=== PATIENT | female | born 1970 | race Caucasian/White ===

== ENCOUNTER 2017-05-23 14:33 | Observation (INO) | payer OTHER ==
[~2017-05-23 14:33] MED LIST: CIMZ200K SC; FOLI1 PO; METH2.5 PO; MORP60TA20 PO; PRED1TAB PO; SYNT125T PO
[2017-05-23] MEDS ORDERED: PRED20 PO (15:25)
[2017-05-23] MEDS ORDERED: METH2.5T PO (15:25)
[2017-05-23] MEDS ORDERED: MORP60TA24 PO (15:25)
[2017-05-23] MEDS ORDERED: FOLI1TAB6 PO (15:25)
[2017-05-23] MEDS ORDERED: LEVO.125 PO (15:25)
[2017-05-23] MEDS ORDERED: DILA8TAB4 PO (15:37)
[2017-05-23] MEDS ORDERED: SODIUM CHLOR 0.9% 1000 ML INJ 1,000 ML IV ONE (15:45)
[2017-05-23] MEDS ORDERED: KETOROLAC TROMETHAMINE 30 MG/ML (IVP) VIAL IV PUSH ONE (15:45)
[2017-05-23] MEDS ORDERED: HYDROmorphone HCL PF 1 MG/ML VIAL IV PUSH ONE (15:45)
--- NOTE | 2017-05-23 15:52 | PD ---
HPI Chief Complaint: Pain: Acute or Chronic Time Seen by Provider: 15:25 Travel History International Travel<30 days: No Contact w/Intl Traveler<30days: No Traveled to known affect area: No History of Present Illness HPI The patient is a 46-year-old female who presents emergency department for back pain. The patient has a long-standing history of back pain and is followed by pain interventionalist, Dr. Macdonald. The patient states that she has chronic pain, however, her pain change character last Thursday. The patient states she was seen at [facility] for her pain and was given oral steroids including prednisone. The patient then saw her pain interventional's, Dr. Macdonald, who performs steroid injections. However, the patient states the pain has been progressing and is not improved with the morphine and Dilaudid she takes at home that is prescribed by her pain interventional list. The patient denies any history of IV drug abuse, does have a history of rheumatoid arthritis and states that her right wrist is swollen secondary to her rheumatoid arthritis. The patient states the back pain is located lower back, radiates down the right leg over the anterior aspect the right knee and into the right groin. She denies any dysuria, frequency, urgency, or incontinence. She denies any fever, chills, or sweats. She denies any history of epidural abscess or psoas abscess. PFSH Past Medical History Autoimmune Disease: No Blood Disorders: No Cancer: No Cardiovascular Problems: No Diabetes: No Diminished Hearing: No Endocrine: Yes (thyroid) Genitourinary: No Hepatitis: No Hiatal Hernia: No Immune Disorder: Yes (rheumatoid) Musculoskeletal: Yes (rheumtoid arthritis, cervical lower spine pain, scoliosis ) Neurologic: Yes (hx of head injury, occ headaches) Psychiatric: No Reproductive: No Respiratory: No Thyroid Disease: Yes Tetanus Vaccination: < 5 Years Influenza Vaccination: No ?: Not LMP: April 2017 Menopausal: Yes Past Surgical History Abdominal Surgery: Yes (right inguinal hernia repair) AICD: No Joint Replacement: No Pacemaker: No Social History Alcohol Use: Yes (OCCASIONAL ) Tobacco Use: No Substance Use: No Allergies-Medications (Allergen,Severity, Reaction): Coded Allergies: penicillin G (Unverified Allergy, Severe, 05/23/17) unknown reaction Reported Meds & Prescriptions Reported Meds & Active Scripts Active Reported Dilaudid (Hydromorphone HCl) 8 Mg Tab 8 Mg PO Q12HR PRN Synthroid (Levothyroxine Sodium) 125 Mcg Tab 125 Mcg PO DAILY Prednisone 20 Mg Tab 40 Mg PO DAILY Take 40 mg (2 tablets) daily for 5 days Morphine Sulfate CR (Morphine Sulfate) 60 Mg Tab 60 Mg PO Q8HR Methotrexate 2.5 Mg Tab 2.5 Mg PO Q7D Folic Acid 1 Mg Tablet 1 Mg PO DAILY Review of Systems General / Constitutional: No: Fever Cardiovascular: No: Chest Pain or Discomfort Respiratory: No: Shortness of Breath Gastrointestinal: No: Nausea, Vomiting, Abdominal Pain Genitourinary: No: Dysuria, Incontinence Musculoskeletal: Positive: Edema (edema of the right wrist which she attributes to rheumatoid arthritis), Pain, No: Weakness Skin: No Rash Neurologic: No: Weakness, Paresthesia, Sensory Disturbance Physical Exam Narrative GENERAL: Awake, alert, tearful 46-year-old female appears her stated age and appears to be in moderate discomfort. SKIN: Focused skin assessment warm/dry. HEAD: Atraumatic. Normocephalic. EYES: No injection or drainage. ENT: No nasal bleeding or discharge. Mucous membranes pink and moist. NECK: Trachea midline. No JVD. CARDIOVASCULAR: Regular rate and rhythm. No murmur appreciated. RESPIRATORY: No accessory muscle use. Clear to auscultation. Breath sounds equal bilaterally. GASTROINTESTINAL: Abdomen soft, non-tender, nondistended. Back: No tenderness over the thoracic vertebra. Billable tenderness over the mid lumbar vertebrae in the sacroiliac bilateral. No erythema noted. Over-the- counter pain patch noted on the back. MUSCULOSKELETAL: Right wrist is slightly edematous compared to the left with mild erythema. Prior IV forrest noted over the left anterior cubital fossa and over the radial aspect of the right wrist. NEUROLOGICAL: Awake and alert. No obvious cranial nerve deficits. Motor grossly within normal limits. Normal speech. PSYCHIATRIC: Appropriate mood and affect; insight and judgment normal. Data Data Last Documented VS Vital Signs Date Time Temp Pulse Resp B/P (MAP) Pulse Ox O2 Delivery O2 Flow Rate FiO2 05/23/17 16:24 82 20 142/77 (98) 97 Room Air Orders Orders Complete Blood Count With Diff (05/23/17 15:39) Comprehensive Metabolic Panel (05/23/17 15:39) Urinalysis - C+S If Indicated (05/23/17 15:39) Ct Lumb Spine W/O Contrast (05/23/17 ) Hydromorphone Pf Inj (Dilaudid Pf Inj) (05/23/17 15:45) Ketorolac Inj (Toradol Inj) (05/23/17 15:45) Sodium Chlor 0.9% 1000 Ml Inj (Ns 1000 M (05/23/17 15:45) Lactic Acid (05/23/17 15:39) Blood Culture (05/23/17 15:39) Methylprednisolone So Succ Inj (Solumedr (05/23/17 17:30) Admit Order (Ed Use Only) (05/23/17 17:17) C-Reactive Protein (Crp) (05/23/17 17:17) Westergren Sedimentation Rate (05/23/17 17:17) Labs Laboratory Tests Test 05/23/17 15:50 White Blood Count 14.6 TH/MM3 Red Blood Count 4.71 MIL/MM3 Hemoglobin 12.8 GM/DL Hematocrit 39.4 % Mean Corpuscular Volume 83.6 FL Mean Corpuscular Hemoglobin 27.2 PG Mean Corpuscular Hemoglobin Concent 32.6 % Red Cell Distribution Width 12.3 % Platelet Count 339 TH/MM3 Mean Platelet Volume 7.5 FL Neutrophils (%) (Auto) 67.1 % Lymphocytes (%) (Auto) 19.6 % Monocytes (%) (Auto) 10.2 % Eosinophils (%) (Auto) 0.3 % Basophils (%) (Auto) 2.8 % Neutrophils # (Auto) 9.8 TH/MM3 Lymphocytes # (Auto) 2.9 TH/MM3 Monocytes # (Auto) 1.5 TH/MM3 Eosinophils # (Auto) 0.0 TH/MM3 Basophils # (Auto) 0.4 TH/MM3 CBC Comment DIFF FINAL Differential Comment Blood Urea Nitrogen 10 MG/DL Creatinine 0.58 MG/DL Random Glucose 96 MG/DL Total Protein 8.2 GM/DL Albumin 2.8 GM/DL Calcium Level 9.0 MG/DL Alkaline Phosphatase 101 U/L Aspartate Amino Transf (AST/SGOT) 13 U/L Alanine Aminotransferase (ALT/SGPT) 15 U/L Total Bilirubin 0.3 MG/DL Sodium Level 139 MEQ/L Potassium Level 3.3 MEQ/L Chloride Level 100 MEQ/L Carbon Dioxide Level 32.1 MEQ/L Anion Gap 7 MEQ/L Estimat Glomerular Filtration Rate 111 ML/MIN Lactic Acid Level 1.9 mmol/L MDM Medical Decision Making Medical Screen Exam Complete: Yes Emergency Medical Condition: Yes Medical Record Reviewed: Yes Interpretation(s) CT lumbar spine without contrast reveals multilevel lumbar spine degenerative changes as detailed. No high-grade foraminal or spinal stenosis demonstrated at any level. Mild scoliosis. There is no fracture or subluxation. Differential Diagnosis Differential diagnosis includes chronic back pain, fracture, spinal stenosis, epidural abscess, psoas abscess, immunocompromise, UTI, nephrolithiasis. Narrative Course IV was established, labs are drawn and sent, and the patient was placed on cardiac telemetry monitoring and continuous pulse oximetry monitoring. The patient was electric drill operator Decadron, Toradol, and IV fluids. CT lumbar spine was ordered. UA was sent to lab. The patient states she was seen in our Thursday and Thursday, states on Thursday they did an MRI of the back with and without contrast. Therefore, an attempt was made to obtain the MRI results from [facility]. CT reveals no obvious compression fracture. The patient's white count is slightly elevated, however, I doubt epidural abscess or psoas abscess if MRI was performed at [facility] and the patient was discharged home. The patient was reevaluated at 5:10 PM, continues to have excruciating pain with difficulty mobilizing. She does have a red and swollen wrist and back pain, this may be rheumatoid arthritis exacerbation. The patient has been to the ER 3 times in the last week and has seen her pain interventionalist who perform steroid injections without any alleviation of her pain. Therefore, patient will be 23 hour observation for intractable back pain and possible rheumatoid arthritis exacerbation. The patient was administered Solu-Medrol 125 mg intravenously. I discussed the patient the on-call medical service as the patient's physician is Dr. Jeanmarie Pitts, the patient will be 23 hour observation. Physician Communication Physician Communication I discussed the patient with Dr. Hamm who agrees with 23 hour observation. Diagnosis Primary Impression: Intractable low back pain Admitting Information Admitting Physician Requests: Observation Condition: Stable Nader Roth MD May 23, 2017 15:52
[2017-05-23 16:06] LABS: AUTOMATED NEUTROPHIL # 9.8 TH/MM3 (1.8-7.7); BASOPHIL # 0.4 TH/MM3 (0-0.2); BASOPHIL % 2.8 % (0.0-2.0); EOSINOPHIL % 0.3 % (0.0-4.0); HEMATOCRIT 39.4 % (35.0-46.0); LYMPH % 19.6 % (9.0-44.0); LYMPHOCYTE # 2.9 TH/MM3 (1.0-4.8); MEAN CELL VOLUME 83.6 FL (80.0-100.0); MEAN CORPUSCULAR HEMOGLOBIN 27.2 PG (27.0-34.0); MEAN CORPUSCULAR HGB CONC 32.6 % (32.0-36.0); MONO % 10.2 % (0.0-8.0); NEUT % 67.1 % (16.0-70.0); PLATELET COUNT 339 TH/MM3 (150-450); RED BLOOD COUNT 4.71 MIL/MM3 (4.00-5.30); RED CELL DISTRIBUTION WIDTH 12.3 % (11.6-17.2); WHITE BLOOD COUNT 14.6 TH/MM3 (4.0-11.0)
[2017-05-23 16:08] LABS: HEMO FLAGS DIFF FINAL
[2017-05-23 16:15] LABS: CHLORIDE 100 MEQ/L (98-107); POTASSIUM 3.3 MEQ/L (3.5-5.1); SODIUM (NA) 139 MEQ/L (136-145)
[2017-05-23 16:19] LABS: ANION GAP 7 MEQ/L (5-15); BICARBONATE 32.1 MEQ/L (21.0-32.0); BLOOD UREA NITROGEN 10 MG/DL (7-18)
[2017-05-23 16:22] LABS: ALT (GPT) 15 U/L (10-53); AST (GOT) 13 U/L (15-37); GLOMERULAR FILTRATION RATE 111 ML/MIN (>89)
[2017-05-23 16:24] VITALS: BP 142/77; PULSE 82; RESP 20; O2SAT 97
[2017-05-23 16:24] LABS: TOTAL BILIRUBIN ADULT 0.3 MG/DL (0.2-1.0)
[2017-05-23 16:25] LABS: ALKALINE PHOSPHATASE 101 U/L (45-117)
--- NOTE | 2017-05-23 16:40 | RADRPT ---
EXAM DATE/TIME: 05/23/2017 16:13 [place] COMPARISON: No previous studies available for comparison. INDICATIONS : Back pain RADIATION DOSE: 25.33 CTDIvol (mGy) MEDICAL HISTORY : Rheumatoid arthritis. SURGICAL HISTORY : Inguinal hernia repair. ENCOUNTER: Initial ACUITY: 1 day PAIN SCALE: 10/10 LOCATION: low back TECHNIQUE: Volumetric scanning of the lumbar spine was performed. Multiplanar reconstructions in the sagittal, coronal and oblique axial planes were performed. Using automated exposure control and adjustment of the mA and/or kV according to patient size, radiation dose was kept as low as reasonably achievable t o obtain optimal diagnostic quality images. DICOM format image data is available electronically for review and comparison. FINDINGS: Mild levoconvex curvature centered around L4. No fracture or subluxation of the lumbar spine. Vertebr al bodies have normal height. T12-L1: Normal. L1-L2: Normal. L2-L3: The disc has mild loss of height. There is mild, diffuse/circumferential disc osteophyte complex and mild, chronic Schmorl's node changes of the vertebral body endplates. There is mild bilateral facet o steoarthritis. Slight foraminal encroachment on the left. L3-L4: The disc has slight loss of height. There is diffuse bulging of the annulus and mild bilateral facet osteoarthritis. Mild, chronic Schmorl's node changes of the superior endplate of L4. No foraminal or spinal stenosis. L4-L5: The disc has mild loss of height. There is diffuse bulging of the disc annulus and mild bilateral fac et osteoarthritis. No significant foraminal or spinal stenosis. L5-S1: The disc has a moderate loss of height. There is a small, broad/diffuse disc protrusion and mild bila teral facet osteoarthritis. A larger disc protrusion is seen anteriorly. No significant foraminal or spinal stenosis demonstrated. CONCLUSION: Multilevel lumbar spine degenerative changes as detailed above. No high-grade foraminal or spinal rohit nosis demonstrated at any level. Mild scoliosis. There is no fracture or subluxation. Bipin Gallardo MD on May 23, 2017 at 16:33 Board Certified Radiologist. This report was verified electronically.
[2017-05-23 17:24] VITALS: BP 144/65; PULSE 68; RESP 18; TEMP 98.6; O2SAT 97
[2017-05-23] MEDS ORDERED: methylPREDNISolone SOD SUCC 125 MG/2 ML VIAL IV PUSH ONE (17:30)
--- NOTE | 2017-05-23 17:34 | HHI.HP ---
[facility] Jeanmarie Pitts DO Admission Diagnosis intractable back pain rule out rheumatoid arthritis exacerbation Diagnoses: Travel History International Travel<30 Days: No Contact w/Intl Traveler <30 Da: No Traveled to Known Affected Are: No History of Present Illness This is a pleasant 46 year-old female with past medical history of rheumatoid arthritis and chronic low back pain who presents to the ER with severe intractable lumbar back pain which has been ongoing for the past 4 days. She presented twice to the ER at [facility] where she apparently had an MRI of her back done and she was told that showed nothing acute. She was prescribed prednisone and discharged home. She returns today via [facility] with intractable pain. She denies any paresthesias, trouble with her bowels or ladder, or weakness in the lower extremities. Normally when she gets rheumatoid arthritis exacerbations it affects her knees hands and wrists. She has been using the walker over the past week. She does have a motorized scooter as well. She last saw her pain management physician Dr. Macdonald on Thursday. 10 point review systems otherwise negative. Past Family Social History Past Medical History Rheumatoid arthritis Chronic low back pain Anxiety COPD Past Surgical History inguinal hernia repair Allergies: Coded Allergies: penicillin G (Unverified Allergy, Severe, 05/23/17) unknown reaction Family History Reviewed and noncontributory Social History no e/t/d Physical Exam Vital Signs Vital Signs Date Time Temp Pulse Resp B/P (MAP) Pulse Ox O2 Delivery O2 Flow Rate FiO2 05/23/17 17:24 98.6 68 18 144/65 (91) 97 Room Air 05/23/17 16:24 82 20 142/77 (98) 97 Room Air 05/23/17 16:20 68 Physical Exam GENERAL: Well-nourished, well-developed patient. SKIN: Warm and dry. HEAD: Normocephalic. EYES: No scleral icterus. No injection or drainage. NECK: Supple, trachea midline. No JVD or lymphadenopathy. CARDIOVASCULAR: Regular rate and rhythm without murmurs, gallops, or rubs. RESPIRATORY: Breath sounds equal bilaterally. No accessory muscle use. GASTROINTESTINAL: Abdomen soft, non-tender, nondistended. EXTREMITIES: No cyanosis, or edema. Deformities of fingers bilaterally. Right wrist laterally is swollen with some erythema. NEUROLOGICAL: Awake, alert, and oriented x 3. Non-focal. Laboratory Laboratory Tests Test 05/23/17 15:50 White Blood Count 14.6 Red Blood Count 4.71 Hemoglobin 12.8 Hematocrit 39.4 Mean Corpuscular Volume 83.6 Mean Corpuscular Hemoglobin 27.2 Mean Corpuscular Hemoglobin Concent 32.6 Red Cell Distribution Width 12.3 Platelet Count 339 Mean Platelet Volume 7.5 Neutrophils (%) (Auto) 67.1 Lymphocytes (%) (Auto) 19.6 Monocytes (%) (Auto) 10.2 Eosinophils (%) (Auto) 0.3 Basophils (%) (Auto) 2.8 Neutrophils # (Auto) 9.8 Lymphocytes # (Auto) 2.9 Monocytes # (Auto) 1.5 Eosinophils # (Auto) 0.0 Basophils # (Auto) 0.4 CBC Comment DIFF FINAL Differential Comment Blood Urea Nitrogen 10 Creatinine 0.58 Random Glucose 96 Total Protein 8.2 Albumin 2.8 Calcium Level 9.0 Alkaline Phosphatase 101 Aspartate Amino Transf (AST/SGOT) 13 Alanine Aminotransferase (ALT/SGPT) 15 Total Bilirubin 0.3 Sodium Level 139 Potassium Level 3.3 Chloride Level 100 Carbon Dioxide Level 32.1 Anion Gap 7 Estimat Glomerular Filtration Rate 111 Lactic Acid Level 1.9 Date/Time Source Procedure Growth Status 05/23/17 15:55 Blood Peripheral Aerobic Blood Culture Pending Received 05/23/17 15:55 Blood Peripheral Anaerobic Blood Culture Pending Received Result Diagram: 05/23/17 1550 05/23/17 1550 Imaging Last Impressions Lumbar Spine CT 05/23/17 0000 Signed Impressions: Service Date/Time: Thursday, May 23, 2017 16:13 - CONCLUSION: Multilevel lumbar spine degenerative changes as detailed above. No high-grade foraminal or spinal stenosis demonstrated at any level. Mild scoliosis. There is no fracture or subluxation. MD Kalpana Talamantes VTE Risk Assessment Caprini VTE Risk Assessment: Mod/High Risk (score >= 2) Caprini Risk Assessment Model Point Value = 1 Point Value = 2 Point Value = 3 Point Value = 5 Age 41-60 Minor surgery BMI > 25 kg/m2 Swollen legs Varicose veins or History of unexplained or recurrent spontaneous Oral contraceptives or hormone replacement Sepsis (< 1 month) Serious lung disease, including pneumonia (< 1 month) Abnormal pulmonary function Acute myocardial infarction Congestive heart failure (< 1 month) History of inflammatory bowel disease Medical patient at bed rest Age 61-74 Arthroscopic surgery Major open surgery (> 45 min) Laparoscopic surgery (> 45 min) Malignancy Confined to bed (> 72 hours) Immobilizing plaster cast Central venous access Age >= 75 History of VTE Family history of VTE Factor V Leiden Prothrombin [id number] Lupus anticoagulant Anticardiolipin antibodies Elevated serum homocysteine Heparin-induced thrombocytopenia Other congenital or acquired thrombophilia Stroke (< 1 month) Elective arthroplasty Hip, pelvis, or leg fracture Acute spinal cord injury (< 1 month) Prophylaxis Regimen Total Risk Factor Score Risk Level Prophylaxis Regimen 0-1 Low Early ambulation 2 Moderate Order ONE of the following: *Sequential Compression Device (SCD) *Heparin 5000 units SQ BID 3-4 Higher Order ONE of the following medications: *Heparin 5000 units SQ TID *Enoxaparin/Lovenox 40 mg SQ daily (WT < 150 kg, CrCl > 30 mL/min) *Enoxaparin/Lovenox 30 mg SQ daily (WT < 150 kg, CrCl > 10-29 mL/min) *Enoxaparin/Lovenox 30 mg SQ BID (WT < 150 kg, CrCl > 30 mL/min) AND/OR *Sequential Compression Device (SCD) 5 or more Highest Order ONE of the following medications: *Heparin 5000 units SQ TID (Preferred with Epidurals) *Enoxaparin/Lovenox 40 mg SQ daily (WT < 150 kg, CrCl > 30 mL/min) *Enoxaparin/Lovenox 30 mg SQ daily (WT < 150 kg, CrCl > 10-29 mL/min) *Enoxaparin/Lovenox 30 mg SQ BID (WT < 150 kg, CrCl > 30 mL/min) AND *Sequential Compression Device (SCD) Assessment and Plan Problem List: (1) Intractable low back pain ICD Code: M54.5 - Low back pain Status: Acute Assessment and Plan -Acute lower back pain in a patient with chronic low back pain and rheumatoid arthritis. Lumbar CT showing no acute findings. The patient was in the [facility] ER over the weekend and had an MRI which she was told was negative. Those results are requested and are pending. The patient has no signs or symptoms of nerve impingement. We will place her in observation for pain control, consult physical therapy. The patient has no history of rheumatoid arthritis involving the spine. We'll check a sedimentation rate and CRP. Continue steroids. -Rheumatoid arthritis. Continue prednisone and methotrexate as per home doses. -COPD without acute exacerbation. -Anxiety. Continue Klonopin. -Leukocytosis likely secondary to the steroids. -Hypokalemia. Replete. -DVT prophylaxis with Lovenox. Sarah Hamm MD May 23, 2017 17:34
[2017-05-23] MEDS ORDERED: BISACODYL 10 MG SUPP RECTAL PRN (17:45)
[2017-05-23] MEDS ORDERED: METHOTREXATE 2.5 MG TAB PO SCH (17:45)
[2017-05-23] MEDS ORDERED: TEMAZEPAM 15 MG CAP PO PRN (17:45)
[2017-05-23] MEDS ORDERED: ACETAMINOPHEN 325 MG TAB PO PRN (17:45)
[2017-05-23] MEDS ORDERED: MAGNESIUM HYDROXIDE SUSP 30 ML CUP PO PRN (17:45)
[2017-05-23] MEDS ORDERED: HYDROmorphone HCL 4 MG TAB PO PRN (17:45)
[2017-05-23] MEDS ORDERED: HYDROmorphone HCL PF 1 MG/ML VIAL IV PUSH PRN (17:45)
[2017-05-23] MEDS ORDERED: NALOXONE HCL 0.4 MG/ML AMP IV PUSH PRN (17:45)
[2017-05-23] MEDS ORDERED: SENNOSIDES 8.6 MG TAB PO PRN (17:45)
[2017-05-23] MEDS ORDERED: SODIUM CHLORIDE 0.9% FLUSH 10 ML FLUSH IV FLUSH PRN (17:45)
[2017-05-23] MEDS ORDERED: LACTULOSE SYRUP 20 GM/30 ML CUP PO PRN (17:45)
[2017-05-23 17:59] LABS: BLOOD, URINE NEG (NEG); GLUCOSE,URINE NEG (NEG); KETONE, URINE NEG (NEG); NITRITE,URINE NEG (NEG)
[2017-05-23 18:01] LABS: METHOD OF COLLECTION CLEAN CATCH; URINE COLOR YELLOW (YELLW/STRAW)
[2017-05-23 18:15] LABS: SQUAMOUS EPITHELIAL CELL URINE 0-5 /hpf (0-5); WBC, URINE 0-2 /hpf (0-5)
[2017-05-23 18:16] LABS: COMMENT (UR) CULT NOT INDICATED; CULTURE IF INDICATED CULT NOT INDICATED
[2017-05-23 18:39] VITALS: BP 146/80; PULSE 60; RESP 17; O2SAT 98
[2017-05-23 19:50] VITALS: BP 167/87; PULSE 55; RESP 14; O2SAT 96
[2017-05-23] MEDS ORDERED: ENOXAPARIN SODIUM 40 MG/0.4 ML SYRINGE SQ SCH (20:00)
[2017-05-23] MEDS: MORPHINE SULFATE 30 MG CONTROLLED RELEASE TAB PO SCH (20:47)
[2017-05-23] MEDS: SODIUM CHLORIDE 0.9% FLUSH 10 ML FLUSH IV FLUSH SCH (20:49)
[2017-05-23] MEDS: DOCUSATE SODIUM 50 MG/SENNA 8.6 MG TAB PO SCH (21:00)
[2017-05-23 21:19] VITALS: BP 152/86; TEMP 98.4
[2017-05-23 21:40] VITALS: BP 135/69; PULSE 48; RESP 16; TEMP 98.3; O2SAT 97
[2017-05-24] VITALS: BP 158/81; PULSE 40; RESP 16; TEMP 98.2; O2SAT 98
[2017-05-24 04:00] VITALS: BP 164/87; PULSE 41; RESP 16; TEMP 98.3; O2SAT 98
[2017-05-24] MEDS ORDERED: LEVOTHYROXINE SODIUM 125 MCG TAB PO SCH (06:00)
[2017-05-24] MEDS: MORPHINE SULFATE 30 MG CONTROLLED RELEASE TAB PO SCH (06:54)
[2017-05-24 08:00] VITALS: BP 90/68; PULSE 40; RESP 20; TEMP 95.7; O2SAT 100
[2017-05-24] MEDS ORDERED: predniSONE 20 MG TAB PO SCH (09:00)
[2017-05-24] MEDS ORDERED: FOLIC ACID 1 MG TAB PO SCH (09:00)
[2017-05-24] MEDS: DOCUSATE SODIUM 50 MG/SENNA 8.6 MG TAB PO SCH (09:00)
[2017-05-24] MEDS: SODIUM CHLORIDE 0.9% FLUSH 10 ML FLUSH IV FLUSH SCH (09:27)
--- NOTE | 2017-05-24 11:19 | HHI.PR ---
Subjective Remarks Patient states lower back pain is much improved today. She has not required any prn IV dilaudid, has stayed on home pain regimen. She would like to go home so that she can follow up with her pain management physician. Patient has been up to the bathroom, walking with assist from her sister. Objective Vitals Vital Signs Date Time Temp Pulse Resp B/P (MAP) Pulse Ox O2 Delivery O2 Flow Rate FiO2 05/24/17 08:00 95.7 40 20 90/68 (75) 100 05/24/17 07:54 16 05/24/17 04:00 98.3 41 16 164/87 (112) 98 05/24/17 00:00 98.2 40 16 158/81 (106) 98 05/23/17 21:40 98.3 48 16 135/69 (91) 97 05/23/17 21:19 98.4 55 14 152/86 (108) 95 05/23/17 19:50 55 14 167/87 (113) 96 Room Air 05/23/17 18:39 60 17 146/80 (102) 98 Room Air 05/23/17 17:24 98.6 68 18 144/65 (91) 97 Room Air 05/23/17 16:24 82 20 142/77 (98) 97 Room Air 05/23/17 16:20 68 I/O 05/23/17 05/23/17 05/23/17 05/24/17 05/24/17 05/24/17 07:00 15:00 23:00 07:00 15:00 23:00 Intake Total 1000 ml 100 ml Balance 1000 ml 100 ml Intake Oral 100 ml IV Total 1000 ml Result Diagram: 05/23/17 1550 05/23/17 1550 Objective Remarks GENERAL: Well-nourished, well-developed patient. SKIN: Warm and dry. HEAD: Normocephalic. EYES: No scleral icterus. No injection or drainage. NECK: Supple, trachea midline. No JVD or lymphadenopathy. CARDIOVASCULAR: Regular rate and rhythm without murmurs, gallops, or rubs. RESPIRATORY: Breath sounds equal bilaterally. No accessory muscle use. GASTROINTESTINAL: Abdomen soft, non-tender, nondistended. EXTREMITIES: No cyanosis, or edema. Deformities of fingers bilaterally. Right wrist laterally is swollen with some erythema. NEUROLOGICAL: Awake, alert, and oriented x 3. Non-focal. A/P Problem List: (1) Intractable low back pain ICD Code: M54.5 - Low back pain Status: Acute Assessment and Plan -Acute lower back pain in a patient with chronic low back pain and rheumatoid arthritis. Lumbar CT showing no acute findings. The patient was in the [facility] ER over the weekend and had an MRI which she was told was negative. The patient has no signs or symptoms of nerve impingement. The patient has no history of rheumatoid arthritis involving the spine. Pain is improved today; patient would like to go home to followup with her pain management physician. Patient has walker, motorized scooter at home. Her sister will be staying with her to help. -Rheumatoid arthritis. Continue prednisone and methotrexate as per home doses. -COPD without acute exacerbation. -Anxiety. Continue Klonopin. -Leukocytosis likely secondary to the steroids. -Hypokalemia. Replete. -DVT prophylaxis with Lovenox. Discharge Planning DC home. F/u with Dr. Macdonald tomorrow. Sarah Hamm MD May 24, 2017 11:19
[2017-05-25] MEDS ORDERED: INFLUENZA VIRUS VACCINE (QUADRIVALENT) 0.5 ML SYR IM ONE (10:00)
== END 2017-05-24 12:19 | disposition home or self-care (01) ==
LOC: PHED 14:33 → PHEDA 17:19 → UNDOADMOB 17:19 → PH5A 21:47 → PHEDA 21:47 → UNDODISOB 05-24 12:19
PROVIDERS: ADMIT Family Medicine; ATTEND Family Medicine
DX: M54.5 Low back pain (principal); G89.29 Other chronic pain; D72.829 Elevated white blood cell count, unspecified; E87.6 Hypokalemia; T38.0X5A Adverse effect of glucocorticoids and synthetic analogues, initial encounter; F41.9 Anxiety disorder, unspecified; M48.00 Spinal stenosis, site unspecified; M41.9 Scoliosis, unspecified; M06.9 Rheumatoid arthritis, unspecified; J44.9 Chronic obstructive pulmonary disease, unspecified; M47.816 Spondylosis without myelopathy or radiculopathy, lumbar region
CPT/HCPCS: 72131; 80053; 81001; 83605; 85025; 85652; 86140; 87040; 87149; 87205; 96361; 96374; 96375; 96376; 97161; 99285; G0378; G8987; G8988; J1170; J1650; J1885; J2930; J7030; J7512

== ENCOUNTER 2017-07-13 09:51 | Inpatient (IN) | payer OTHER, MEDICARE ==
[~2017-07-13] VITALS: Ht 152.4 cm; Wt 43.4 kg
[2017-07-13] VITALS (9 sets, daily range): BP systolic 104–140; BP diastolic 59–84; PULSE 81–126; RESP 16–20; TEMP 98.1–98.6; O2SAT 93–98
[~2017-07-13 09:51] MED LIST changes: -CIMZ200K SC; +DILA8TAB4 PO; -FOLI1 PO; +FOLI1TAB6 PO; +LEVO.125 PO; -METH2.5 PO; +METH2.5T PO; -MORP60TA20 PO; +MORP60TA24 PO; -PRED1TAB PO; +PRED20 PO; -SYNT125T PO
[2017-07-13] MEDS ORDERED: GADODIAMIDE PF 287 MG/ML 5 ML VIAL (for RAD MRI) IVCONTRAST ONE (09:52)
[2017-07-13] MEDS ORDERED: [UNRECOGNIZED DRUG - OTHER] IM (11:14)
[2017-07-13] MEDS ORDERED: FOSA70TA PO (11:14)
[2017-07-13] MEDS ORDERED: CIMZKIT SQ (11:16)
[2017-07-13] MEDS ORDERED: ONDANSETRON HCL 4 MG/2 ML VIAL IV PUSH ONE (11:45)
[2017-07-13] MEDS ORDERED: HYDROmorphone HCL PF 1 MG/ML VIAL IV PUSH ONE ×2 (11:45→14:15)
--- NOTE | 2017-07-13 11:56 | PD ---
HPI Chief Complaint: Back/ Neck Pain or Injury Time Seen by Provider: 11:10 Travel History International Travel<30 days: No Contact w/Intl Traveler<30days: No Traveled to known affect area: No History of Present Illness HPI This 47-year-old female is complaining of neck and back pain. She says been having quite bad back pain for the last 2 months. She went to a chiropractor and had an onset of quite severe pain while visiting him. She does have a history of quite severe rheumatoid arthritis and is on methotrexate and prednisone. He does not currently have a personal trainer. She has had cortisone shots in her back in the past. She was admitted to the hospital on May 24 with intractable back pain. At that time she had 2 blood cultures done which were positive for staph aureus. She thinks she may have had some fever a couple of weeks ago but she is not sure. She is on morphine and hydromorphone for pain and says it is not helping. SHe uses a motorized wheelchair. She has a lot of pain when she tries to get out of bed. He has a lot of trouble turning. She has developed a bedsore. She says she rarely does get out of bed. She had previously had a lot of back pain last few days she is also having neck pain. sHe says she needs help with everything. She feels like her hands me a bit weak bit weaker than they were before. She has trouble holding a glass to drink. PFSH Past Medical History Arthritis: Yes Autoimmune Disease: No Blood Disorders: No Cancer: No Cardiovascular Problems: No Diabetes: No Diminished Hearing: No Endocrine: Yes (thyroid) Genitourinary: No Hepatitis: No Hiatal Hernia: No Immune Disorder: Yes (rheumatoid) Musculoskeletal: Yes (rheumtoid arthritis, cervical lower spine pain, scoliosis ) Neurologic: Yes (hx of head injury, occ headaches) Psychiatric: No Reproductive: No Respiratory: No Immunizations Current: Yes Thyroid Disease: Yes Tetanus Vaccination: Unknown Influenza Vaccination: No ?: Not LMP: 06/26/2017 Menopausal: Yes Past Surgical History Abdominal Surgery: Yes (right inguinal hernia repair) AICD: No Body Medical Devices: tatoe lt chest,low back and kaiden ankles Joint Replacement: No Pacemaker: No Social History Alcohol Use: Yes (OCCASIONAL ) Tobacco Use: No Substance Use: No Allergies-Medications (Allergen,Severity, Reaction): Coded Allergies: penicillin G (Unverified Allergy, Severe, 07/13/17) unknown reaction Reported Meds & Prescriptions Reported Meds & Active Scripts Active Reported Cimzia (2 vial) Kit Inj (Certolizumab Pegol Inj) 400 Mg (200 Mg X 2) Kit 400 Mg SQ Q14D Administer 2 syringes (400 mg) to separate sites. Fosamax (Alendronate Sodium) 70 Mg Tab 70 Mg PO Q7D Dilaudid (Hydromorphone HCl) 8 Mg Tab 8 Mg PO Q12HR PRN Synthroid (Levothyroxine Sodium) 125 Mcg Tab 125 Mcg PO DAILY Prednisone 20 Mg Tab 50 Mg PO BID Take 40 mg (2 tablets) daily for 5 days Morphine Sulfate CR (Morphine Sulfate) 60 Mg Tab 60 Mg PO Q8HR Methotrexate 2.5 Mg Tab 3 Tab PO Q7D Folic Acid 1 Mg Tablet 1 Mg PO DAILY Review of Systems General / Constitutional: No: Fever, Chills Eyes: No: Diploplia, Blurred Vision HENT: No: Headaches, Vertigo Cardiovascular: No: Chest Pain or Discomfort, Palpitations Respiratory: No: Cough, Shortness of Breath Gastrointestinal: No: Nausea, Vomiting Genitourinary: No: Urgency, Frequency Musculoskeletal: Positive: Pain, No: Myalgias Skin: No Rash, No Itching Neurologic: Positive: Weakness, No: Change in Mentation Endocrine: No: Heat Intolerance, Cold Intolerance Hematologic/Lymphatic: No: Easy Bruising Physical Exam Narrative GENERAL: Well-developed female. She does appear to help pain SKIN: Focused skin assessment warm/dry. There is a superficial ulceration at the superior gluteal cleft. HEAD: Atraumatic. Normocephalic. EYES: Pupils equal and round. No scleral icterus. No injection or drainage. ENT: No nasal bleeding or discharge. Mucous membranes pink and moist. NECK: Trachea midline. No JVD. He has diffuse tenderness of the neck and resists any attempt to move CARDIOVASCULAR: Regular rate and rhythm. No murmur appreciated. RESPIRATORY: No accessory muscle use. Clear to auscultation. Breath sounds equal bilaterally. GASTROINTESTINAL: Abdomen soft, non-tender, nondistended. Hepatic and splenic margins not palpable. MUSCULOSKELETAL: Patient has multiple deformities of the hands consistent with rheumatoid arthritis NEUROLOGICAL: Awake and alert. No obvious cranial nerve deficits. Furnace Packer are quite weak bilaterally. Sensation of the arms appears intact She is able to plantar and dorsiflex her feet. She complains of some diminished sensation in the feet PSYCHIATRIC: Appropriate mood and affect; insight and judgment normal. Data Data Last Documented VS Vital Signs Date Time Temp Pulse Resp B/P (MAP) Pulse Ox O2 Delivery O2 Flow Rate FiO2 07/13/17 14:51 16 07/13/17 11:19 110 140/80 (100) 97 Room Air 07/13/17 09:53 98.6 Orders Orders Complete Blood Count With Diff (07/13/17 11:33) Comprehensive Metabolic Panel (07/13/17 11:33) C-Reactive Protein (Crp) (07/13/17 11:33) Westergren Sedimentation Rate (07/13/17 11:33) Ondansetron Inj (Zofran Inj) (07/13/17 11:45) Hydromorphone Pf Inj (Dilaudid Pf Inj) (07/13/17 11:45) Mri C Spine W&W/O Contrast (07/13/17 ) Blood Culture (07/13/17 11:44) Mri L Spine W&W/O Contrast (07/13/17 ) Gadodiamide Pf Inj (Omniscan Pf Inj) (07/13/17 09:52) Hydromorphone Pf Inj (Dilaudid Pf Inj) (07/13/17 14:15) Labs Laboratory Tests Test 07/13/17 11:50 White Blood Count 15.8 TH/MM3 Red Blood Count 4.93 MIL/MM3 Hemoglobin 13.5 GM/DL Hematocrit 40.7 % Mean Corpuscular Volume 82.6 FL Mean Corpuscular Hemoglobin 27.5 PG Mean Corpuscular Hemoglobin Concent 33.2 % Red Cell Distribution Width 13.4 % Platelet Count 135 TH/MM3 Mean Platelet Volume 9.0 FL Neutrophils (%) (Auto) 81.4 % Lymphocytes (%) (Auto) 11.3 % Monocytes (%) (Auto) 6.7 % Eosinophils (%) (Auto) 0.4 % Basophils (%) (Auto) 0.2 % Neutrophils # (Auto) 12.8 TH/MM3 Lymphocytes # (Auto) 1.8 TH/MM3 Monocytes # (Auto) 1.1 TH/MM3 Eosinophils # (Auto) 0.1 TH/MM3 Basophils # (Auto) 0.0 TH/MM3 CBC Comment AUTO DIFF Differential Total Cells Counted 100 Neutrophils % (Manual) 69 % Band Neutrophils % 1 % Lymphocytes % 20 % Monocytes % 9 % Neutrophils # (Manual) 11.2 TH/MM3 Myelocytes 1 % Differential Comment FINAL DIFF MANUAL Platelet Estimate LOW Platelet Morphology Comment NORMAL Red Cell Morphology Comment NORMAL Erythrocyte Sedimentation Rate 12 mm/hr Blood Urea Nitrogen 17 MG/DL Creatinine 0.69 MG/DL Random Glucose 160 MG/DL Total Protein 7.7 GM/DL Albumin 2.3 GM/DL Calcium Level 8.8 MG/DL Alkaline Phosphatase 141 U/L Aspartate Amino Transf (AST/SGOT) 6 U/L Alanine Aminotransferase (ALT/SGPT) 13 U/L Total Bilirubin 0.7 MG/DL Sodium Level 134 MEQ/L Potassium Level 3.7 MEQ/L Chloride Level 98 MEQ/L Carbon Dioxide Level 30.4 MEQ/L Anion Gap 6 MEQ/L Estimat Glomerular Filtration Rate 91 ML/MIN C-Reactive Protein 14.80 MG/DL [facility] Medical Decision Making Medical Screen Exam Complete: Yes Emergency Medical Condition: Yes Medical Record Reviewed: Yes Differential Diagnosis Differential includes HNP, radiculopathy, myelopathy, back pain Narrative Course MRI of the lumbar and cervical spine have been done. There is L5-S1 discitis with probable abscess. Christopher Sky MD Jul 13, 2017 11:56
[2017-07-13 12:17] LABS: CHLORIDE 98 MEQ/L (98-107); POTASSIUM 3.7 MEQ/L (3.5-5.1); SODIUM (NA) 134 MEQ/L (136-145)
[2017-07-13 12:21] LABS: ANION GAP 6 MEQ/L (5-15); AUTOMATED NEUTROPHIL # 12.8 TH/MM3 (1.8-7.7); BASOPHIL % 0.2 % (0.0-2.0); BICARBONATE 30.4 MEQ/L (21.0-32.0); BLOOD UREA NITROGEN 17 MG/DL (7-18); EOSINOPHIL # 0.1 TH/MM3 (0-0.4); EOSINOPHIL % 0.4 % (0.0-4.0); HEMATOCRIT 40.7 % (35.0-46.0); LYMPH % 11.3 % (9.0-44.0); LYMPHOCYTE # 1.8 TH/MM3 (1.0-4.8); MEAN CELL VOLUME 82.6 FL (80.0-100.0); MEAN CORPUSCULAR HEMOGLOBIN 27.5 PG (27.0-34.0); MEAN CORPUSCULAR HGB CONC 33.2 % (32.0-36.0); MONO % 6.7 % (0.0-8.0); NEUT % 81.4 % (16.0-70.0); PLATELET COUNT 135 TH/MM3 (150-450); RED BLOOD COUNT 4.93 MIL/MM3 (4.00-5.30); RED CELL DISTRIBUTION WIDTH 13.4 % (11.6-17.2); WHITE BLOOD COUNT 15.8 TH/MM3 (4.0-11.0)
[2017-07-13 12:24] LABS: ALT (GPT) 13 U/L (10-53); AST (GOT) 6 U/L (15-37); GLOMERULAR FILTRATION RATE 91 ML/MIN (>89)
[2017-07-13 12:25] LABS: TOTAL BILIRUBIN ADULT 0.7 MG/DL (0.2-1.0)
[2017-07-13 12:27] LABS: ALKALINE PHOSPHATASE 141 U/L (45-117); HEMO FLAGS AUTO DIFF
[2017-07-13 13:47] LABS: BANDS 1 % (0-6); MYELOCYTES 1 % (0-0); NEUTROPHIL # MANUAL DIFF 11.2 TH/MM3 (1.8-7.7); POLYS (SEG NEUTROPHILS) 69 % (16-70); WBC DIFF SAMPLE 100
[2017-07-13 13:48] LABS: PLATELET ESTIMATE SMEAR LOW (NORMAL); PLATELET MORPHOLOGY NORMAL (NORMAL); SCAN/DIFF FINAL DIFF MANUAL
--- NOTE | 2017-07-13 15:42 | RADRPT ---
EXAM DATE/TIME: 07/13/2017 12:49 [facility] COMPARISON: MRI of the lumbar spine, [facility] 12-09-2011. CT LUMBAR SPINE W/O CONTRAST, May 23 17, 16:13. INDICATIONS : Myelopathy. Abcess. CONTRAST: 9 cc Omniscan (gadodiamide) IV MEDICAL HISTORY : Rheumatoid arthritis. SURGICAL HISTORY : None. ENCOUNTER: Initial ACUITY: 1 day PAIN SCORE: 10/10 LOCATION: Bilateral lower back reigion. TECHNIQUE: Multiplanar multisequence MRI of the lumbar spine was performed with and without contrast. FINDINGS: Sagittal T1 pre-and postcontrast, T2 and inversion recovery images show markedly abnormal lumbosacral junction with endplate irregularity. Diffuse edema in both L5 and the superior endplate of S1. Infla mmatory phlegmon surrounds the lumbosacral disc. Disc enhancement following contrast administration w ith evidence of both epidural and perivertebral abscess. Otherwise, degenerative disc disease at L2-3 with disc desiccation, loss of disc height and a markedly diffuse disc bulge. Disc hydration is main tained at all remaining levels POST CONTRAST: Abnormal enhancement about the L5-S1 disc interspace with probable associated abscess. There is some epidural extension into the anterior epidural space. T12-L1: The thecal sac has a normal diameter. No evidence of disc bulge or protrusion. The neural foramina are patent bilaterally. L1-L2: The thecal sac has a normal diameter. No evidence of disc bulge or protrusion. The neural foramina are patent bilaterally. L2-L3: Mild, diffuse disc bulge. Spinal canal and neural foramina are patent. L3-L4: The thecal sac has a normal diameter. No evidence of disc bulge or protrusion. The neural foramina are patent bilaterally. L4-L5: The thecal sac has a normal diameter. No evidence of disc bulge or protrusion. The neural foramina are patent bilaterally. L5-S1: Very abnormal appearance of the inner vertebral disc. Postcontrast administration demonstrates perive rtebral and epidural enhancement surrounding nonenhancing fluid suggesting perivertebral and epidural abscesses. Despite disease, the spinal canal and neural foramina are patent. CONCLUSION: 1. MR findings characteristic of L5-S1 discitis with perivertebral and epidural abscess. 2. Degenerative disc disease at L2-3 with loss of height, disc desiccation and a mild, diffuse disc b ulge. 3. Despite the 2 abnormal levels, spinal canal and neural foramina are adequate throughout without ne rve root compromise. 4. Results were called to Dr. Kothari at the time of this dictation Edvin Cabrera MD on July 13, 2017 at 15:20 Board Certified Radiologist. This report was verified electronically.
--- NOTE | 2017-07-13 16:13 | RADRPT ---
EXAM DATE/TIME: 07/13/2017 12:49 [facility] COMPARISON: No previous studies available for comparison. INDICATIONS : Myelopathy. Abcess. CONTRAST: 9 cc Omniscan (gadodiamide) IV MEDICAL HISTORY : Rheumatoid arthritis. SURGICAL HISTORY : None. ENCOUNTER: Initial ACUITY: 1 day PAIN SCORE: 10/10 LOCATION: Bilateral neck region. TECHNIQUE: Multiplanar, multisequence MRI examination of the cervical spine was performed. FINDINGS: Sagittal T1 pre-and postcontrast, T2 and inversion recovery images show slight exaggeration of the lo rdotic curvature. Mild degenerative changes are most prominent at L4-5 and L5-S1 with mild, diffuse d isc bulges and some uncovertebral ridging. There is some edema in the T1 and T2 vertebral bodies with enhancement in a similar pattern. This appears more than expected from simple degenerative changes i n a regional discitis cannot be excluded. 1.6 cm rounded lesion in T3 I believe is a hemangioma. Ther e appears to be a soft tissue pannus around the dens with regional fluid which may be related to the patient's rheumatoid. POST-CONTRAST: There is some enhancement of both the T1 and T2 vertebral bodies. I believe there is a hemangioma inv olving the T3 vertebrae. C2-C3: The thecal sac has a normal configuration. There is no evidence of disc herniation or spinal canal stenosis. The neural foramina are patent bilaterally. C3-C4: The thecal sac has a normal configuration. There is no evidence of disc herniation or spinal canal s tenosis. The neural foramina are patent bilaterally. C4-C5: Mild broad-based disc is some uncovertebral ridging. Spinal canal and neural foramina are adequate. C5-C6: Mild uncovertebral ridging. There is some narrowing of the right neural foramina. Spinal canal and le ft neural foramina are adequate C6-C7: The thecal sac has a normal configuration. There is no evidence of disc herniation or spinal canal s tenosis. The neural foramina are patent bilaterally. C7-T1: The thecal sac has a normal configuration. There is no evidence of disc herniation or spinal canal s tenosis. The neural foramina are patent bilaterally. CONCLUSION: 1. Edema and abnormal enhancement in both the T1 and T2 vertebral bodies. These are on the edge of th e image and therefore, incompletely characterized. Dedicated MRI of the thoracic spine with and witho ut gadolinium is recommended for further characterization. Discitis in this region cannot be complete ly excluded. 2. Probable 1.6 cm hemangioma at T3. 3. Partially enhancing pannus surrounding the dens of C2 may be related to the patient's baseline rhe umatoid arthritis. 4. Mild degenerative disc disease predominantly at C4-5 and C5-6 with minimal encroachment on the rig ht neural foramina at C5-6. 5. Spinal canal is patent throughout.. Edvin Cabrera MD on July 13, 2017 at 15:40 Board Certified Radiologist. This report was verified electronically.
[2017-07-13] MEDS ORDERED: SODIUM CHLOR 0.9% 1000 ML INJ 1,000 ML IV ONE (16:45)
[2017-07-13] MEDS ORDERED: ACETAMINOPHEN/HYDROcodone 325 MG/5 MG TAB PO PRN (17:00)
[2017-07-13] MEDS ORDERED: MAGNESIUM HYDROXIDE SUSP 30 ML CUP PO PRN (17:00)
[2017-07-13] MEDS ORDERED: NALOXONE HCL 0.4 MG/ML AMP IV PUSH PRN (17:00)
[2017-07-13] MEDS ORDERED: ONDANSETRON HCL 4 MG/2 ML VIAL IVP PRN (17:00)
[2017-07-13] MEDS ORDERED: SODIUM CHLORIDE 0.9% FLUSH 10 ML FLUSH IV FLUSH PRN (17:00)
[2017-07-13] MEDS ORDERED: Vancomycin Consult Pharmacy 1 EA OTHER SCH (17:15)
[2017-07-13] MEDS ORDERED: HYDROmorphone HCL PF 1 MG/ML VIAL IV PUSH STA (17:26)
--- NOTE | 2017-07-13 17:31 | HHI.HP ---
[facility] Jeanmarie Pitts DO Admission Diagnosis LUMBAR DISCITIS Diagnoses: (1) Rheumatoid arthritis Diagnosis: Principal (2) Chronic neck and back pain Diagnosis: Secondary (3) Weakness Diagnosis: Secondary Chief Complaint: Worsening neck and back pain, increasing weakness Travel History International Travel<30 Days: No Contact w/Intl Traveler <30 Da: No Traveled to Known Affected Are: No Sepsis Criteria SIRS Criteria (2 or more): Heart rate over 90, WBC > 73513, < 4000 or > 10% bands History of Present Illness Written by Alem Ries, acting as scribe for Dr. Vaughan on 07/13/17 at 17:26. Mrs. Shine is a 47-year-old female patient with a known medical history of rheumatoid arthritis who presented to the ED with complaints of worsening neck and back pain and increasing weakness. Patient reports previous admission to hospital in May with similar symptoms. Since then patient has been taking methotrexate, steroids and pain medication with minimal relief. Patient states she has been unable to care for herself due to the worsening pain and increasing weakness, with having to perform all of her ADLs. She has developed a sacrum ulcer secondary to immobility for the past couple months. Subjective fevers have been reported. Denies any recent chills, cough, shortness of breath, abdominal pain, nausea, vomiting, diarrhea or dysuria. Cervical and lumbar spine images reviewed showing L5-S1 discitis with perivertebral and epidural abscess. Blood cultures drawn and pending. IV antibiotics started. Neurosurgery consulted, awaiting further recommendations and input. Review of Systems Constitutional: COMPLAINS OF: Fever, Chills Respiratory: DENIES: Cough Cardiovascular: DENIES: Chest pain, Palpitations Gastrointestinal: DENIES: Abdominal pain, Constipation, Diarrhea, Nausea, Vomiting Musculoskeletal: COMPLAINS OF: Joint pain, Muscle aches, Stiffness, Joint Swelling, Back pain, Neck pain Psychiatric: DENIES: Anxiety Except as stated in HPI: all other systems reviewed are Neg Past Family Social History Past Medical History Thyroid disease Rheumatoid arthritis Chronic low back pain COPD Anxiety Past Surgical History Right inguinal hernia repair Reported Medications Active Reported Cimzia (2 vial) Kit Inj (Certolizumab Pegol Inj) 400 Mg (200 Mg X 2) Kit 400 Mg SQ Q14D Administer 2 syringes (400 mg) to separate sites. Fosamax (Alendronate Sodium) 70 Mg Tab 70 Mg PO Q7D Dilaudid (Hydromorphone HCl) 8 Mg Tab 8 Mg PO Q12HR PRN Synthroid (Levothyroxine Sodium) 125 Mcg Tab 125 Mcg PO DAILY Prednisone 20 Mg Tab 50 Mg PO BID Take 40 mg (2 tablets) daily for 5 days Morphine Sulfate CR (Morphine Sulfate) 60 Mg Tab 60 Mg PO Q8HR Methotrexate 2.5 Mg Tab 3 Tab PO Q7D Folic Acid 1 Mg Tablet 1 Mg PO DAILY Allergies: Coded Allergies: penicillin G (Unverified Allergy, Severe, 07/13/17) unknown reaction Active Ordered Medications Current Medications Medications (Trade) Dose Ordered Sig/Jori Route Start Time Stop Time Status Last Admin Sodium Chloride 1,000 ml @ 200 mls/hr Q5H ONCE IV 07/13/17 16:45 07/13/17 21:44 07/13/17 16:50 (NS Flush) 2 ml UNSCH PRN IV FLUSH 07/13/17 17:00 (NS Flush) 2 ml BID IV FLUSH 07/13/17 21:00 (Zofran Inj) 4 mg Q6H PRN IVP 07/13/17 17:00 (Lovenox Inj) 40 mg Q24H SQ 07/13/17 18:00 ([place] 5-325 Mg) 1 tab Q4H PRN PO 07/13/17 17:00 ([place] 10-325 Mg) 1 tab Q4H PRN PO 07/13/17 17:00 (Narcan Inj) 0.4 mg UNSCH PRN IV PUSH 07/13/17 17:00 (Milk Of Magnesia Liq) 30 ml Q12H PRN PO 07/13/17 17:00 Vancomycin HCl 1000 mg/Sodium Chloride 250 ml @ 250 mls/hr ONCE ONCE IV 07/13/17 18:00 07/13/17 18:59 Pharmacy Profile Note 0 ml @ 0 mls/hr UNSCH OTHER 07/13/17 17:15 (Lactinex) 1 tab TID PO 07/13/17 18:00 (Dilaudid Pf Inj) 1 mg ONCE STAT IV PUSH 07/13/17 17:26 07/13/17 17:27 UNV Vancomycin HCl 800 mg/Sodium Chloride 258 ml @ 250 mls/hr Q18H IV 07/14/17 12:00 Miscellaneous Information SPECIFIC LAB TO BE DRAWN:VANCOMY... ONCE ONCE .XX 07/15/17 05:45 07/15/17 05:46 Family History Patient and her twin sister were adopted. Sister had pancreatic cancer now in remission. Social History Denies any tobacco use. Admits to occasional alcohol use. Denies any illicit drug use. Physical Exam Vital Signs Vital Signs Date Time Temp Pulse Resp B/P (MAP) Pulse Ox O2 Delivery O2 Flow Rate FiO2 07/13/17 16:08 92 119/84 (96) 07/13/17 14:51 16 07/13/17 14:25 16 07/13/17 11:19 110 20 140/80 (100) 97 Room Air 07/13/17 09:53 98.6 126 20 127/84 (98) 98 Physical Exam GENERAL: This is a well-nourished, well-developed female patient, lying in bed with generalized pain. SKIN: No rashes, ecchymoses or lesions. Warm and dry. Reports of sacrum bedsore , patient too painful to turn. Pain medications ordered and will attempt to reassess as able. HEENT: Atraumatic. Normocephalic. Pupils equal round and reactive. Extraocular motions intact. No scleral icterus. No injection or drainage. Nose without bleeding. Throat without erythema, tonsillar hypertrophy or exudate. Uvula midline. Airway patent. NECK: Trachea midline. No JVD. Supple. CARDIOVASCULAR: Regular rate and rhythm without murmurs, gallops, or rubs. RESPIRATORY: Clear to auscultation. Breath sounds equal bilaterally. No wheezes , rales, or rhonchi. GASTROINTESTINAL: Abdomen soft, non-tender, nondistended. No guarding. MUSCULOSKELETAL: Extremities without clubbing, cyanosis, or edema. No joint tenderness, effusion, or edema noted. NEUROLOGICAL: Awake and alert. Cranial nerves II through XII intact. Motor and sensory grossly within normal limits. Five out of 5 muscle strength in all muscle groups. Normal speech. Laboratory Laboratory Tests Test 07/13/17 11:50 White Blood Count 15.8 Red Blood Count 4.93 Hemoglobin 13.5 Hematocrit 40.7 Mean Corpuscular Volume 82.6 Mean Corpuscular Hemoglobin 27.5 Mean Corpuscular Hemoglobin Concent 33.2 Red Cell Distribution Width 13.4 Platelet Count 135 Mean Platelet Volume 9.0 Neutrophils (%) (Auto) 81.4 Lymphocytes (%) (Auto) 11.3 Monocytes (%) (Auto) 6.7 Eosinophils (%) (Auto) 0.4 Basophils (%) (Auto) 0.2 Neutrophils # (Auto) 12.8 Lymphocytes # (Auto) 1.8 Monocytes # (Auto) 1.1 Eosinophils # (Auto) 0.1 Basophils # (Auto) 0.0 CBC Comment AUTO DIFF Differential Total Cells Counted 100 Neutrophils % (Manual) 69 Band Neutrophils % 1 Lymphocytes % 20 Monocytes % 9 Neutrophils # (Manual) 11.2 Myelocytes 1 Differential Comment FINAL DIFF MANUAL Platelet Estimate LOW Platelet Morphology Comment NORMAL Red Cell Morphology Comment NORMAL Erythrocyte Sedimentation Rate 12 Blood Urea Nitrogen 17 Creatinine 0.69 Random Glucose 160 Total Protein 7.7 Albumin 2.3 Calcium Level 8.8 Alkaline Phosphatase 141 Aspartate Amino Transf (AST/SGOT) 6 Alanine Aminotransferase (ALT/SGPT) 13 Total Bilirubin 0.7 Sodium Level 134 Potassium Level 3.7 Chloride Level 98 Carbon Dioxide Level 30.4 Anion Gap 6 Estimat Glomerular Filtration Rate 91 C-Reactive Protein 14.80 Date/Time Source Procedure Growth Status 07/13/17 12:00 Blood Peripheral Aerobic Blood Culture Pending Received 07/13/17 12:00 Blood Peripheral Anaerobic Blood Culture Pending Received Result Diagram: 07/13/17 1150 07/13/17 1150 Imaging Last Impressions Lumbar Spine MRI 07/13/17 0000 Signed Impressions: Service Date/Time: Thursday, July 13, 2017 12:49 - CONCLUSION: 1. MR findings characteristic of L5-S1 discitis with perivertebral and epidural abscess. 2. Degenerative disc disease at L2-3 with loss of height, disc desiccation and a mild, diffuse disc bulge. 3. Despite the 2 abnormal levels, spinal canal and neural foramina are adequate throughout without nerve root compromise. 4. Results were called to Dr. Kothari at the time of this dictation Edvin Cabrera MD Cervical Spine MRI 07/13/17 0000 Signed Impressions: Service Date/Time: Thursday, July 13, 2017 12:49 - CONCLUSION: 1. Edema and abnormal enhancement in both the T1 and T2 vertebral bodies. These are on the edge of the image and therefore, incompletely characterized. Dedicated MRI of the thoracic spine with and without gadolinium is recommended for further characterization. Discitis in this region cannot be completely excluded. 2. Probable 1.6 cm hemangioma at T3. 3. Partially enhancing pannus surrounding the dens of C2 may be related to the patient's baseline rheumatoid arthritis. 4. Mild degenerative disc disease predominantly at C4-5 and C5-6 with minimal encroachment on the right neural foramina at C5-6. 5. Spinal canal is patent throughout.. MD Kalpana Diaz VTE Risk Assessment Caprini VTE Risk Assessment: No/Low Risk (score <= 1) Caprini Risk Assessment Model Point Value = 1 Point Value = 2 Point Value = 3 Point Value = 5 Age 41-60 Minor surgery BMI > 25 kg/m2 Swollen legs Varicose veins or History of unexplained or recurrent spontaneous Oral contraceptives or hormone replacement Sepsis (< 1 month) Serious lung disease, including pneumonia (< 1 month) Abnormal pulmonary function Acute myocardial infarction Congestive heart failure (< 1 month) History of inflammatory bowel disease Medical patient at bed rest Age 61-74 Arthroscopic surgery Major open surgery (> 45 min) Laparoscopic surgery (> 45 min) Malignancy Confined to bed (> 72 hours) Immobilizing plaster cast Central venous access Age >= 75 History of VTE Family history of VTE Factor V Leiden Prothrombin [id number] Lupus anticoagulant Anticardiolipin antibodies Elevated serum homocysteine Heparin-induced thrombocytopenia Other congenital or acquired thrombophilia Stroke (< 1 month) Elective arthroplasty Hip, pelvis, or leg fracture Acute spinal cord injury (< 1 month) Prophylaxis Regimen Total Risk Factor Score Risk Level Prophylaxis Regimen 0-1 Low Early ambulation 2 Moderate Order ONE of the following: *Sequential Compression Device (SCD) *Heparin 5000 units SQ BID 3-4 Higher Order ONE of the following medications: *Heparin 5000 units SQ TID *Enoxaparin/Lovenox 40 mg SQ daily (WT < 150 kg, CrCl > 30 mL/min) *Enoxaparin/Lovenox 30 mg SQ daily (WT < 150 kg, CrCl > 10-29 mL/min) *Enoxaparin/Lovenox 30 mg SQ BID (WT < 150 kg, CrCl > 30 mL/min) AND/OR *Sequential Compression Device (SCD) 5 or more Highest Order ONE of the following medications: *Heparin 5000 units SQ TID (Preferred with Epidurals) *Enoxaparin/Lovenox 40 mg SQ daily (WT < 150 kg, CrCl > 30 mL/min) *Enoxaparin/Lovenox 30 mg SQ daily (WT < 150 kg, CrCl > 10-29 mL/min) *Enoxaparin/Lovenox 30 mg SQ BID (WT < 150 kg, CrCl > 30 mL/min) AND *Sequential Compression Device (SCD) Assessment and Plan Assessment and Plan Mrs. Shine is a 47-year-old female patient with a known medical history of rheumatoid arthritis who presented to the ED with complaints of worsening neck and back pain and increasing weakness. Acute on chronic lower back pain with history of RA suspect secondary to discitis with perivertebral and epidural abscess Meets SIRS criteria (tachycardia and leukocytosis) suspected source abscess - Lumbar and cervical spine reviewed showing L5-S1 discitis with perivertebral and epidural abscess. MRI t spine w/wout contrast ordered. Will follow. - Consult placed to neurosurgeon for further recommendations, appreciate input - Afebrile. Monitor fevers. CRP 14.8. WBC 15.8 on presentation suspect secondary to recent steroid use although may be secondary to epidural abscess. Will continue to follow trend. - Blood cultures ordered and pending. Follow growth. - Vancomycin 1 g IV given in ED. Placed on Vancomycin 800 mg IV q18hr. Probiotics started. - Dilaudid IV given in ED. Control pain, [place] PO available PRN per pain scale. - Continue IVF. Encourage PO intake and hydration. - Supportive care. Supplemental O2 as needed. COPD without acute exacerbation: Supportive care. Hypothyroidism: Continue home Levothyroxine. DVT prophylaxis with Lovenox. Discussed Condition With This note was transcribed by scribe [Alem Reis]. I, Dr. Mohan Vaughan personally performed the history, physical exam, and medical decision making; and confirmed the accuracy of the information in the transcribed note. Authenticated by Dr. Mohan Vaughan on 07/13/17 at 18:23. Physician Certification 2 Midnight Certification Type: Admission for Inpatient Services Order for Inpatient Services The services are ordered in accordance with Medicare regulations or non- Medicare payer requirements, as applicable. In the case of services not specified as inpatient-only, they are appropriately provided as inpatient services in accordance with the 2-midnight benchmark. Estimated LOS (days): 3 3 days is the estimated time the patient will need to remain in the hospital, assuming treatment plan goals are met and no additional complications. Post-Hospital Plan: Not yet determined Alem Reis Jul 13, 2017 17:31 Mohan Vaughan MD Jul 13, 2017 18:23
[2017-07-13] MEDS: LACTOBACILLUS ACIDOPHILUS TAB PO SCH (18:00)
[2017-07-13] MEDS ORDERED: ENOXAPARIN SODIUM 40 MG/0.4 ML SYRINGE SQ SCH (18:00)
[2017-07-13] MEDS ORDERED: VANCOMYCIN INJ 1,000 MG in SODIUM CHLOR 0.9% 250 ML INJ 250 ML IV ONE (18:00)
[2017-07-13] MEDS: ACETAMINOPHEN/HYDROcodone 325 MG/10 MG TAB PO PRN (20:05)
[2017-07-13] MEDS: SODIUM CHLORIDE 0.9% FLUSH 10 ML FLUSH IV FLUSH SCH (21:00)
[2017-07-13] MEDS: HYDROmorphone HCL PF 1 MG/ML VIAL IV PUSH PRN (23:37)
[2017-07-14] VITALS (11 sets, daily range): BP systolic 100–141; BP diastolic 59–83; PULSE 64–103; RESP 16–20; TEMP 97.6–99.3; O2SAT 94–100
[2017-07-14] MEDS: ACETAMINOPHEN/HYDROcodone 325 MG/10 MG TAB PO PRN ×2 (04:42→09:01)
[2017-07-14 07:19] LABS: AUTOMATED NEUTROPHIL # 9.3 TH/MM3 (1.8-7.7); BASOPHIL % 0.2 % (0.0-2.0); EOSINOPHIL # 0.1 TH/MM3 (0-0.4); EOSINOPHIL % 0.8 % (0.0-4.0); HEMATOCRIT 39.2 % (35.0-46.0); HEMO FLAGS DIFF FINAL; LYMPH % 16.8 % (9.0-44.0); LYMPHOCYTE # 2.1 TH/MM3 (1.0-4.8); MEAN CELL VOLUME 84.9 FL (80.0-100.0); NEUT % 75.2 % (16.0-70.0); PLATELET COUNT 108 TH/MM3 (150-450); RED BLOOD COUNT 4.62 MIL/MM3 (4.00-5.30); RED CELL DISTRIBUTION WIDTH 14.1 % (11.6-17.2); WHITE BLOOD COUNT 12.3 TH/MM3 (4.0-11.0)
[2017-07-14 07:50] LABS: ANION GAP 8 MEQ/L (5-15); AST (GOT) 11 U/L (15-37); BICARBONATE 28.7 MEQ/L (21.0-32.0); BLOOD UREA NITROGEN 13 MG/DL (7-18); CHLORIDE 98 MEQ/L (98-107); GLOMERULAR FILTRATION RATE 157 ML/MIN (>89); POTASSIUM 3.5 MEQ/L (3.5-5.1); SODIUM (NA) 135 MEQ/L (136-145)
[2017-07-14 07:51] LABS: ALT (GPT) 12 U/L (10-53)
[2017-07-14 07:53] LABS: ALKALINE PHOSPHATASE 129 U/L (45-117); TOTAL BILIRUBIN ADULT 0.6 MG/DL (0.2-1.0)
[2017-07-14] MEDS ORDERED: PNEUMOCOCCAL POLYVALENT INJ 25 MCG/0.5 ML SYR IM ONE (09:00)
[2017-07-14] MEDS ORDERED: INFLUENZA VIRUS VACCINE (QUADRIVALENT) 0.5 ML SYR IM ONE (09:00)
[2017-07-14] MEDS: LACTOBACILLUS ACIDOPHILUS TAB PO SCH ×3 (09:01→18:09)
[2017-07-14] MEDS: SODIUM CHLORIDE 0.9% FLUSH 10 ML FLUSH IV FLUSH SCH ×2 (09:04→21:00)
--- NOTE | 2017-07-14 09:19 | PD.CONS ---
History of Present Illness Service Neurosurgery Consult Requested By Medicine service Reason for Consult L5-S1 discitis Primary Care Physician Jeanmarie Pitts DO Diagnoses: History of Present Illness Ms. Shine is a 47-year-old lady who presented to [facility] Emergency room last evening with complaint of neck and back pain for approximately 2 months. She has had previous episodes of spinal pain. She recently presented in May 2017 to the emergency room with several days of severe low back pain which had been evaluated at [facility] emergency room prior to presenting to [facility] emergency room on May 23, 2017. She reportedly had an MRI of the lumbar spine done at [facility] emergency room which she indicated was negative for any acute findings. A CT scan at [facility] emergency room revealed degenerative changes. It was noted that she had leukocytosis, which was felt to likely be related to steroids. The patient requested discharge home on 05/24/17 to follow up with her pain management physician. She has gone to a chiropractor recently with increase in the pain symptoms during the treatment. She does have a history of rheumatoid arthritis and is on prednisone and methotrexate. Review of Systems Constitutional: DENIES: Fatigue, Fever, Weight loss, Dizziness Eyes: DENIES: Blurred vision, Diplopia Ears, nose, mouth, throat: DENIES: Hearing loss, Vertigo Cardiovascular: DENIES: Chest pain, Palpitations Gastrointestinal: DENIES: Abdominal pain, Diarrhea, Nausea Musculoskeletal: COMPLAINS OF: Joint pain, Muscle aches, Back pain, Neck pain Hematologic/lymphatic: DENIES: Bruising Neurologic: DENIES: Abnormal gait, Headache Psychiatric: DENIES: Confusion Past Family Social History Allergies: Coded Allergies: penicillin G (Unverified Allergy, Severe, 07/13/17) unknown reaction Past Medical History Rheumatoid arthritis COPD Thyroid disease Anxiety disorder Past Surgical History Inguinal hernia repair Reported Medications Reported Meds & Active Scripts Active Reported Cimzia (2 vial) Kit Inj (Certolizumab Pegol Inj) 400 Mg (200 Mg X 2) Kit 400 Mg SQ Q14D Administer 2 syringes (400 mg) to separate sites. Fosamax (Alendronate Sodium) 70 Mg Tab 70 Mg PO Q7D Dilaudid (Hydromorphone HCl) 8 Mg Tab 8 Mg PO Q12HR PRN Synthroid (Levothyroxine Sodium) 125 Mcg Tab 125 Mcg PO DAILY Prednisone 20 Mg Tab 50 Mg PO BID Take 40 mg (2 tablets) daily for 5 days Morphine Sulfate CR (Morphine Sulfate) 60 Mg Tab 60 Mg PO Q8HR Methotrexate 2.5 Mg Tab 3 Tab PO Q7D Folic Acid 1 Mg Tablet 1 Mg PO DAILY Family History History of pancreatic cancer in her sister Social History Does not smoke cigarettes. Occasional alcohol. No illicit drug use Physical Exam Vital Signs Vital Signs Date Time Temp Pulse Resp B/P (MAP) Pulse Ox O2 Delivery O2 Flow Rate FiO2 07/14/17 05:35 97.8 81 18 133/71 (91) 96 07/14/17 03:28 94 07/14/17 00:30 97.7 78 18 141/78 (99) 94 07/13/17 21:31 98 Nasal Cannula 2.00 07/13/17 21:00 98.1 81 18 130/62 (84) 97 07/13/17 20:16 120/78 (92) 98 Nasal Cannula 2.00 07/13/17 18:42 91 20 123/76 (92) 98 Nasal Cannula 2.00 07/13/17 17:45 87 20 106/59 (75) 93 Room Air 07/13/17 17:40 90 16 104/65 (78) 95 Room Air 07/13/17 16:08 92 119/84 (96) 07/13/17 14:51 16 07/13/17 14:25 16 07/13/17 11:19 110 20 140/80 (100) 97 Room Air 07/13/17 09:53 98.6 126 20 127/84 (98) 98 Physical Exam GENERAL: This is a well-nourished, well-developed patient, in no apparent distress. SKIN: No rashes, ecchymoses or lesions. Cool and dry. HEAD: Atraumatic. Normocephalic. No temporal or scalp tenderness. EYES: Pupils equal round and reactive. Extraocular motions intact. No scleral icterus. No injection or drainage. ENT: Nose without bleeding, purulent drainage or septal hematoma. Throat without erythema, tonsillar hypertrophy or exudate. Uvula midline. Airway patent. NECK: Trachea midline. No JVD or lymphadenopathy. Supple, nontender, no meningeal signs. CARDIOVASCULAR: Regular rate and rhythm without murmurs, gallops, or rubs. RESPIRATORY: Clear to auscultation. Breath sounds equal bilaterally. No wheezes , rales, or rhonchi. GASTROINTESTINAL: Abdomen soft, non-tender, nondistended. No hepato-splenomegaly , or palpable masses. No guarding. MUSCULOSKELETAL: Extremities without clubbing, cyanosis, or edema. No joint tenderness, effusion, or edema noted. No calf tenderness. Negative Homans sign bilaterally. NEUROLOGICAL: Awake and alert. Cranial nerves II through XII intact. Motor and sensory grossly within normal limits. Five out of 5 muscle strength in all muscle groups. Normal speech. Laboratory Laboratory Tests Test 07/13/17 11:50 07/14/17 06:43 White Blood Count 15.8 12.3 Red Blood Count 4.93 4.62 Hemoglobin 13.5 12.9 Hematocrit 40.7 39.2 Mean Corpuscular Volume 82.6 84.9 Mean Corpuscular Hemoglobin 27.5 28.0 Mean Corpuscular Hemoglobin Concent 33.2 33.0 Red Cell Distribution Width 13.4 14.1 Platelet Count 135 108 Mean Platelet Volume 9.0 9.8 Neutrophils (%) (Auto) 81.4 75.2 Lymphocytes (%) (Auto) 11.3 16.8 Monocytes (%) (Auto) 6.7 7.0 Eosinophils (%) (Auto) 0.4 0.8 Basophils (%) (Auto) 0.2 0.2 Neutrophils # (Auto) 12.8 9.3 Lymphocytes # (Auto) 1.8 2.1 Monocytes # (Auto) 1.1 0.9 Eosinophils # (Auto) 0.1 0.1 Basophils # (Auto) 0.0 0.0 CBC Comment AUTO DIFF DIFF FINAL Differential Total Cells Counted 100 Neutrophils % (Manual) 69 Band Neutrophils % 1 Lymphocytes % 20 Monocytes % 9 Neutrophils # (Manual) 11.2 Myelocytes 1 Differential Comment FINAL DIFF MANUAL Platelet Estimate LOW Platelet Morphology Comment NORMAL Red Cell Morphology Comment NORMAL Erythrocyte Sedimentation Rate 12 Blood Urea Nitrogen 17 13 Creatinine 0.69 0.43 Random Glucose 160 88 Total Protein 7.7 7.2 Albumin 2.3 2.0 Calcium Level 8.8 9.2 Alkaline Phosphatase 141 129 Aspartate Amino Transf (AST/SGOT) 6 11 Alanine Aminotransferase (ALT/SGPT) 13 12 Total Bilirubin 0.7 0.6 Sodium Level 134 135 Potassium Level 3.7 3.5 Chloride Level 98 98 Carbon Dioxide Level 30.4 28.7 Anion Gap 6 8 Estimat Glomerular Filtration Rate 91 157 C-Reactive Protein 14.80 Date/Time Source Procedure Growth Status 07/13/17 12:00 Blood Peripheral Aerobic Blood Culture Pending Received 07/13/17 12:00 Blood Peripheral Anaerobic Blood Culture Pending Received Result Diagram: 07/14/17 0643 07/14/17 0643 Imaging 07/13/2017 MRI lumbar and cervical spine images reviewed by the undersigned. Lumbar Spine MRI 07/13/17 0000 Signed Impressions: Service Date/Time: Thursday, July 13, 2017 12:49 - CONCLUSION: 1. MR findings characteristic of L5-S1 discitis with perivertebral and epidural abscess. 2. Degenerative disc disease at L2-3 with loss of height, disc desiccation and a mild, diffuse disc bulge. 3. Despite the 2 abnormal levels, spinal canal and neural foramina are adequate throughout without nerve root compromise. 4. Results were called to Dr. Kothari at the time of this dictation Edvin Cabrera MD Cervical Spine MRI 07/13/17 0000 Signed Impressions: Service Date/Time: Thursday, July 13, 2017 12:49 - CONCLUSION: 1. Edema and abnormal enhancement in both the T1 and T2 vertebral bodies. These are on the edge of the image and therefore, incompletely characterized. Dedicated MRI of the thoracic spine with and without gadolinium is recommended for further characterization. Discitis in this region cannot be completely excluded. 2. Probable 1.6 cm hemangioma at T3. 3. Partially enhancing pannus surrounding the dens of C2 may be related to the patient's baseline rheumatoid arthritis. 4. Mild degenerative disc disease predominantly at C4-5 and C5-6 with minimal encroachment on the right neural foramina at C5-6. 5. Spinal canal is patent throughout.. Edvin Cabrera MD Assessment and Plan Assessment and Plan Impression: 1. L5-S1 discitis with perivertebral inflammation-abscess. There is a very small probable epidural abscess component, without significant canal stenosis or nerve impingement. 2. Rheumatoid arthritis Accommodations: Findings were discussed with the patient. It is advised that she proceed with an L5-S1 CT-guided disc biopsy. A thoracic MRI is also recommended due to question of osteomyelitis at the T1- T2 levels noted on MRI of the cervical spine. She may mobilize out of bed without a brace at this point, but is cautioned to avoid reaching and lifting. Infectious disease consult García New MD Jul 14, 2017 09:19
--- NOTE | 2017-07-14 10:02 | HHI.PR ---
Subjective Remarks Follow-up for discitis and epidural abscess Patient stated pain is uncontrolled. She stated that she takes morphine and oral Dilaudid at home medication that we are offering here is not helping with her pain at all. She stated that pain worsened over the past 2 months in which she got multiple epidural injections done. She stated that nothing improved her pain. Her sister and has been at the bedside. Otherwise she has no complaints. Discussed with patient's nurse. Blood cultures now positive. Objective Vitals Vital Signs Date Time Temp Pulse Resp B/P (MAP) Pulse Ox O2 Delivery O2 Flow Rate FiO2 07/14/17 05:35 97.8 81 18 133/71 (91) 96 07/14/17 03:28 94 07/14/17 00:30 97.7 78 18 141/78 (99) 94 07/13/17 21:31 98 Nasal Cannula 2.00 07/13/17 21:00 98.1 81 18 130/62 (84) 97 07/13/17 20:16 120/78 (92) 98 Nasal Cannula 2.00 07/13/17 18:42 91 20 123/76 (92) 98 Nasal Cannula 2.00 07/13/17 17:45 87 20 106/59 (75) 93 Room Air 07/13/17 17:40 90 16 104/65 (78) 95 Room Air 07/13/17 16:08 92 119/84 (96) 07/13/17 14:51 16 07/13/17 14:25 16 07/13/17 11:19 110 20 140/80 (100) 97 Room Air I/O 07/13/17 07/13/17 07/13/17 07/14/17 07/14/17 07/14/17 07:00 15:00 23:00 07:00 15:00 23:00 Intake Total 250 ml 360 ml Output Total 200 ml Balance 50 ml 360 ml Intake Oral 360 ml IV Total 250 ml Output Urine Total 200 ml # Voids 1 2 Result Diagram: 07/14/1764207/14/17642 Objective Remarks GENERAL: This is a well-nourished, well-developed female patient, lying in bed with generalized pain. SKIN: No rashes, ecchymoses or lesions. Warm and dry. From prior note she reports a sacral bedsore but unable to turn patient due to pain. CARDIOVASCULAR: Regular rate and rhythm without murmurs, gallops, or rubs. RESPIRATORY: Clear to auscultation. Breath sounds equal bilaterally. No wheezes , rales, or rhonchi. GASTROINTESTINAL: Abdomen soft, non-tender, nondistended. No guarding. MUSCULOSKELETAL: Extremities without clubbing, cyanosis, or edema. No joint tenderness, effusion, or edema noted. 5 out of 5 upper and lower extremity muscle strength. Unable to assess her back secondary to severe pain. Medications and IVs Current Medications Ondansetron HCl (Zofran Inj) 4 mg ONCE ONCE IV PUSH Last administered on 11:57; Start 07/13/17 at 11:45; Stop 07/13/17 at 11:46; Status DC Hydromorphone HCl (Dilaudid Pf Inj) 1 mg ONCE ONCE IV PUSH Last administered on 07/13/17 11:58; Start 07/13/17 at 11:45; Stop 07/13/17 at 11:46; Status DC Gadodiamide (Omniscan Pf Inj) 9 ml STK-MED ONCE IVCONTRAST ; Start 07/13/17 at 09:52; Stop 07/13/17 at 13:24; Status DC Hydromorphone HCl (Dilaudid Pf Inj) 1 mg ONCE ONCE IV PUSH Last administered on 07/13/17 14:18; Start 07/13/17 at 14:15; Stop 07/13/17 at 14:16; Status DC Sodium Chloride 1,000 ml @ 200 mls/hr Q5H ONCE IV Last administered on 16:50; Start 07/13/17 at 16:45; Stop 07/13/17 at 21:44; Status DC Sodium Chloride (NS Flush) 2 ml UNSCH PRN IV FLUSH FLUSH AFTER USING IV ACCESS ; Start 07/13/17 at 17:00 Sodium Chloride (NS Flush) 2 ml BID IV FLUSH Last administered on 07/14/17 09: 04; Start 07/13/17 at 21:00 Ondansetron HCl (Zofran Inj) 4 mg Q6H PRN IVP NAUSEA OR VOMITING; Start at 17:00 Enoxaparin Sodium (Lovenox Inj) 40 mg Q24H SQ ; Start 07/13/17 at 18:00; Stop 07/13/17 at 18:35; Status DC Acetaminophen/ Hydrocodone Bitart ([place] 5-325 Mg) 1 tab Q4H PRN PO PAIN SCALE 3 TO 5; Start 07/13/17 at 17:00; Stop 07/14/17 at 09:42; Status DC Acetaminophen/ Hydrocodone Bitart ([place] 10-325 Mg) 1 tab Q4H PRN PO PAIN SCALE 6 TO 10 Last administered on 07/14/17 09:01; Start 07/13/17 at 17:00; Stop 07/14/17 at 09:42; Status DC Naloxone HCl (Narcan Inj) 0.4 mg UNSCH PRN IV PUSH SEE LABEL COMMENTS; Start 07/13/17 at 17:00 Magnesium Hydroxide (Milk Of Magnesia Liq) 30 ml Q12H PRN PO Mild constipation ; Start 07/13/17 at 17:00 Vancomycin HCl 1000 mg/Sodium Chloride 250 ml @ 250 mls/hr ONCE ONCE IV Last administered on 07/13/17 18:11; Start 07/13/17 at 18:00; Stop 07/13/17 at 18:59 ; Status DC Pharmacy Profile Note 0 ml @ 0 mls/hr UNSCH OTHER ; Start 07/13/17 at 17:15 Lactobacillus Acidophilus (Lactinex) 1 tab TID PO Last administered on 09:01; Start 07/13/17 at 18:00 Hydromorphone HCl (Dilaudid Pf Inj) 1 mg ONCE STAT IV PUSH Last administered on 07/13/17 17:39; Start 07/13/17 at 17:26; Stop 07/13/17 at 17:35; Status DC Vancomycin HCl 800 mg/Sodium Chloride 258 ml @ 250 mls/hr Q18H IV ; Start 07/14 at 12:00 Miscellaneous Information SPECIFIC LAB TO BE DRAWN:VANCOMY... ONCE ONCE .XX ; Start 07/15/17 at 05:45; Stop 07/15/17 at 05:46 Hydromorphone HCl (Dilaudid Pf Inj) 1 mg Q4H PRN IV PUSH Breakthrough Pain Last administered on 07/13/17 23:37; Start 07/13/17 at 18:45 Pneumococcal Polyvalent Vaccine (Pneumovax-23 Inj) 25 mcg ONCE ONCE IM Last administered on 07/14/17 09:14; Start 07/14/17 at 09:00; Stop 07/14/17 at 09:01 ; Status DC Influenza Virus Vaccine (Flu (Quadrivalent) Vaccine Inj) 0.5 ml ONCE ONCE IM Last administered on 07/14/17 09:13; Start 07/14/17 at 09:00; Stop 07/14/17 at 09:01; Status DC Folic Acid (Folate) 1 mg DAILY PO ; Start 07/15/17 at 09:00 Hydromorphone HCl (Dilaudid) 8 mg Q12HR PRN PO Pain 1-10 Management; Start 07/14/17 at 09:45 Levothyroxine Sodium (Synthroid) 125 mcg DAILY@0600 PO ; Start 07/15/17 at 06:00 Morphine Sulfate (Oramorph Sr) 60 mg Q8H PO ; Start 07/14/17 at 10:00 A/P Problem List: (1) Rheumatoid arthritis ICD Code: M06.9 - Rheumatoid arthritis, unspecified (2) Chronic neck and back pain ICD Code: M54.2 - Cervicalgia; M54.9 - Dorsalgia, unspecified (3) Weakness ICD Code: R53.1 - Weakness Assessment and Plan Mrs. Shine is a 47-year-old female patient with a known medical history of rheumatoid arthritis who presented to the ED with complaints of worsening neck and back pain and increasing weakness. Acute on chronic lower back pain with history of RA suspect secondary to discitis with perivertebral and epidural abscess - Lumbar and cervical spine reviewed showing L5-S1 discitis with perivertebral and epidural abscess. Dr. New is following and recommended MRI t spine w/wout contrast And CT-guided biopsy. Already placed. - Blood cultures 4 out of 4 positive for gram-positive cocci. - Currently on vancomycin. Continue vancomycin. -Will consult infectious disease. - Pain uncontrolled. At home patient is on oral morphine and Dilaudid. Currently she is on [place] with IV Dilaudid for breakthrough pain. Will restart her home medication and give IV Dilaudid when necessary for any breakthrough pain. Gram-positive cocci bacteremia -Currently on vancomycin. -Patient does have a history of multiple epidural injections most likely this is the source. -Will need to repeat blood cultures. COPD without acute exacerbation: Supportive care. Hypothyroidism: Continue home Levothyroxine. ? Sacral wound -Unable to examine the moment secondary to severe pain. Once pain is better controlled can examine. DVT prophylaxis with Lovenox. Discussed with patient's nurse, patient, patient's and sister. Altagracia Hunter MD Jul 14, 2017 10:02
[2017-07-14] MEDS: MORPHINE SULFATE 60 MG CONTROLLED RELEASE TAB PO SCH ×2 (10:44→18:09)
[2017-07-14] MEDS: HYDROmorphone HCL PF 1 MG/ML VIAL IV PUSH PRN ×3 (10:45→22:40)
[2017-07-14] MEDS: VANCOMYCIN INJ 800 MG in SODIUM CHLOR 0.9% 250 ML INJ 250 ML IV SCH (11:23)
--- NOTE | 2017-07-14 11:29 | MB ---
cc: MANDI SIMENTAL MD, FRANKLYN F. MD DATE OF CONSULTATION: 07/14/[address] Simental. REASON FOR CONSULTATION Patient found to have lumbar and cervical spine discitis with paravertebral and epidural abscess. Assist with antibiotics. HISTORY OF PRESENT ILLNESS This is a 47-year-old white female who presented to the emergency department with pain in her back and neck. The patient was evaluated in the emergency department and MRI was performed with findings characteristic of L5-S1 discitis with paravertebral and epidural abscess. Cervical spine MRI was also performed and it showed mild degenerative disc disease at C4-C5 and C5-C6 with minimal encroachment on the right neural foramina. The patient was evaluated by neurosurgery. She is due to undergo biopsy of the lumbar disc. Blood cultures were taken on admission and all four bottles have gram-positive cocci. The patient states that the pain began approximately two months ago. She was seen by a chiropractor prior to onset and she said the following day after she had manipulation from the chiropractor she was unable to get out of bed and had severe pains including pain in the back. Her at bed side states that for the next four days she continued to have trouble with pain and with getting up from a chair to the bed, and that is all she was doing. She was reevaluated by the chiropractor and over the next several weeks she had a steroid injection. She cannot tell me whether it was an epidural steroid injection, however, it seems that one time she may have had an epidural steroid injection. She continued to have periodic pain which was rather severe at times and therefore she sought further medical attention. This included evaluation at [facility]. Radiographic studies were done and reportedly were negative. The patient states that occasionally she will have pain radiating down her leg from the lower back. The patient does not recall having any significant fevers or chills. She denies IV drug use. Her white blood cell count on admission was 15.8 with 81% neutrophils. PAST MEDICAL HISTORY 1. Rheumatoid arthritis. 2. Chronic low back pain. 3. COPD. 4. Anxiety disorder. 5. Thyroid disease. 6. Right inguinal hernia repair. ALLERGIES PENICILLIN. MEDICATIONS 1. Vancomycin. 2. Synthroid. 3. Folate. 4. Oramorph. 5. Dilaudid. 6. Lactinex. SOCIAL HISTORY No tobacco use. Positive alcohol, occasional. Denies illicit drugs. FAMILY HISTORY Noncontributory. REVIEW OF SYSTEMS CONSTITUTIONAL: No fever or chills. HEENT/NECK: Significant for neck pain. CARDIOVASCULAR: Denies chest pain or palpitation. RESPIRATORY: Denies cough or shortness of breath. GASTROINTESTINAL: Denies nausea, vomiting, abdominal pain or diarrhea. GENITOURINARY: Denies urgency, frequency or dysuria. MUSCULOSKELETAL: Complains of pain in the back and the neck. ENDOCRINE: Denies polyuria or polydipsia. INTEGUMENTARY: Denies skin rash or itching. NEUROLOGIC: Difficulty ambulating because of pain in legs and weakness. PSYCHIATRIC: Denies mood changes. PHYSICAL EXAMINATION GENERAL: This is a well-developed female in no acute distress. She is awake, alert and oriented. VITAL SIGNS: Temperature 97.8, BP 133/71, respirations 18, heart rate 81. HEENT: The head is atraumatic. Extraocular movements grossly intact. Pupils reactive to light. No icterus. Oropharynx no visible lesions. NECK: Tender on palpation and mildly stiff. LUNGS: Clear to auscultation. HEART: Regular S1 and S2, without audible murmurs. ABDOMEN: Bowel sounds present. Soft. No tenderness appreciated. BACK: Tenderness at the lower back on palpation. RECTAL: Not performed. EXTREMITIES: No clubbing, cyanosis or edema. SKIN: No rash. NEUROLOGIC: No gross focal findings. LABORATORY WBC 12.3, platelets 108, 75% neutrophils. Creatinine 0.43, BUN 13, sodium 135. AST 11, ALT 12, alk phos 129. IMPRESSION 1. Discitis of the lumbar spine with MRI indicating characteristics of paravertebral and epidural abscess. 2. Gram-positive bacteremia. Patient with neck pain and possible involvement of the cervical spine with discitis as well. RECOMMENDATIONS 1. Continue vancomycin, which should cover the gram-positive cocci. 2. Monitor blood cultures for identity and sensitivity to the gram-positive bacteria. 3. Monitor biopsy of the spine once that is performed. She is very likely has the same organism as in the blood involved in the spine. The patient will need long-term IV antibiotics for treatment of this infection. Thank you this consultation. I will follow the patient's progress along with you. MD ANGELINE Carrillo /10:46 AM /11:12 AM
[2017-07-14] MEDS: HYDROmorphone HCL 4 MG TAB PO PRN (14:13)
[2017-07-14 15:30] LABS: APTT (PATIENT) 33.6 SEC (24.3-30.1); PROTHROMBIN TIME - PATIENT 11.6 SEC (9.8-11.6)
[2017-07-14] MEDS ORDERED: MIDAZOLAM HCL 2 MG/2 ML VIAL ONE ×2 (15:51→16:13)
--- NOTE | 2017-07-14 16:50 | PD.RAD ---
Post Procedure Progress Note Pre Procedure Diagnosis: (1) Discitis of lumbosacral region (2) Chronic neck and back pain Post Procedure Diagnosis: (1) Chronic neck and back pain (2) Discitis of lumbosacral region Procedure Date: Jul 14, 2017 Supervising Radiologist: Edvin Cabrera Proceduralist/Assist: Holden Keen, RT(R), Christopher Earl, RT(R) Anesthesia: Local, Analgesia, Conscious Sedation Plan of Activity Patient to Unit: [facility] Patient Condition: Good See PACS Report for procedural detail/treatment Spinal Procedure Disc Aspiration L5-S1 Fluid Description: Bloody Puncture Time: 16:30 Edvin aCbrera MD Jul 14, 2017 16:50
--- NOTE | 2017-07-14 17:10 | RADRPT ---
EXAM DATE/TIME: 07/14/2017 15:40 [facility] COMPARISON: No previous studies available for comparison. INDICATIONS : Patient presents with lumbar discitis in need of disc aspiration for further evaluation. MEDICAL HISTORY : Rheumatoid arthritis SURGICAL HISTORY : N/A ENCOUNTER: Initial ACUITY: 2 months PAIN SCORE: 10/10 LOCATION: Right Neck FLUORO TIME: 3.5 minutes IMAGE SERIES: 1 SEDATION TIME: 30 minutes MEDICATION(S): 1.) 3 mg midazolam (Versed) IV 2.) 150 mcg fentanyl (Sublimaze) IV DEVICE(S): 1.) 22 gauge 10cm Chiba needle FNA specimen(s) was obtained and submitted to laboratory for pathologic evaluation. PROCEDURE : 1. Fluoroscopically guided needle biopsy. 2. Conscious sedation with continuous EKG and Oximetry monitoring. The risks, benefits and alternatives to the procedure were explained and verbal and written consent w as obtained. The site was prepped in sterile fashion. Full sterile technique was used, including cap, mask, steri le gloves and gown and a large sterile sheet. Hand hygiene and 2% chlorhexidine and/or betadine/alco hol prep was utilized per protocol for cutaneous antisepsis. The skin and subcutaneous tissues were infiltrated with local anesthetic solution. With fluoroscopic guidance a 22 gauge Chiba needle was advanced into the abnormal L5-S1 disc from the left. Aspiration was performed through the outer cannula Conscious sedation was performed with the prescribed dosages and duration as above in the presence of an independent trained radiology nurse to assist in the monitoring of the patient. EKG and oximetry remained stable throughout the procedure. CONCLUSION: Uncomplicated FNA of the lumbosacral disc as above. Edvin Cabrera MD on July 14, 2017 at 17:07 Board Certified Radiologist. This report was verified electronically.
[2017-07-14] MEDS ORDERED: GADODIAMIDE PF 287 MG/ML 5 ML VIAL (for RAD MRI) IV PUSH ONE (17:41)
--- NOTE | 2017-07-14 19:27 | RADRPT ---
EXAM DATE/TIME: 07/14/2017 17:15 [facility] COMPARISON: MRI LUMBAR SPINE W & W/O CONTRAST, July 13, 2017, 12:49. INDICATIONS : Myelopathy. CONTRAST: 9 cc Omniscan (gadodiamide) IV MEDICAL HISTORY : Rheumatoid arthritis. SURGICAL HISTORY : Lumbar epidural aspiration. ENCOUNTER: Subsequent ACUITY: 1 day PAIN SCORE: 8/10 LOCATION: Lower back. TECHNIQUE: Multiplanar multisequence MRI of the thoracic spine was performed. FINDINGS: See the MRI of the cervical spine and lumbar spine reported separately. VERTEBRA: Normal vertebral body height. Homogeneous marrow signal. ALIGNMENT: There is a scoliotic curvature. CORD: Normal position and configuration. POST CONTRAST: No abnormal areas of contrast enhancement seen. T1-T2: Normal. T2-T3: The thecal sac has a normal diameter. No evidence of disc bulge or protrusion. T3-T4: The thecal sac has a normal diameter. No evidence of disc bulge or protrusion. T4-T5: The thecal sac has a normal diameter. No evidence of disc bulge or protrusion. T5-T6: The thecal sac has a normal diameter. No evidence of disc bulge or protrusion. T6-T7: The thecal sac has a normal diameter. No evidence of disc bulge or protrusion. T7-T8: The thecal sac has a normal diameter. No evidence of disc bulge or protrusion. T8-T9: The thecal sac has a normal diameter. No evidence of disc bulge or protrusion. T9-T10: The thecal sac has a normal diameter. No evidence of disc bulge or protrusion. T10-T11: The thecal sac has a normal diameter. No evidence of disc bulge or protrusion. T11-T12: The thecal sac has a normal diameter. No evidence of disc bulge or protrusion. T12-L1: The thecal sac has a normal diameter. No evidence of disc bulge or protrusion. CONCLUSION: 1. See the MRI of the cervical spine and lumbar spine reported separately. 2. Scoliotic curvature. 3. No acute abnormality. Ruperto Pozo Jr., MD on July 14, 2017 at 19:23 Board Certified Radiologist. This report was verified electronically.
[2017-07-15] VITALS (7 sets, daily range): BP systolic 97–146; BP diastolic 55–73; PULSE 55–82; RESP 18; TEMP 97.4–98.3; O2SAT 95–100
[2017-07-15] MEDS: MORPHINE SULFATE 60 MG CONTROLLED RELEASE TAB PO SCH ×3 (02:38→17:33)
[2017-07-15] MEDS: HYDROmorphone HCL 4 MG TAB PO PRN ×2 (04:19→22:14)
[2017-07-15] MEDS ORDERED: PHARMACY ORDERED LAB ONE (05:45)
[2017-07-15] MEDS: LEVOTHYROXINE SODIUM 125 MCG TAB PO SCH (06:33)
[2017-07-15] MEDS: VANCOMYCIN INJ 800 MG in SODIUM CHLOR 0.9% 250 ML INJ 250 ML IV SCH (07:02)
[2017-07-15 07:17] LABS: HEMATOCRIT 38.7 % (35.0-46.0); MEAN CELL VOLUME 84.8 FL (80.0-100.0); MEAN CORPUSCULAR HEMOGLOBIN 27.8 PG (27.0-34.0); MEAN CORPUSCULAR HGB CONC 32.8 % (32.0-36.0); PLATELET COUNT 115 TH/MM3 (150-450); RED BLOOD COUNT 4.57 MIL/MM3 (4.00-5.30); RED CELL DISTRIBUTION WIDTH 13.9 % (11.6-17.2); REVIEW FLAG FINAL
[2017-07-15 07:42] LABS: BICARBONATE 30.3 MEQ/L (21.0-32.0); POTASSIUM 4.1 MEQ/L (3.5-5.1)
[2017-07-15] MEDS: SODIUM CHLORIDE 0.9% FLUSH 10 ML FLUSH IV FLUSH SCH ×2 (09:00→20:19)
[2017-07-15] MEDS: LACTOBACILLUS ACIDOPHILUS TAB PO SCH ×3 (09:07→17:33)
[2017-07-15] MEDS: FOLIC ACID 1 MG TAB PO SCH (09:08)
--- NOTE | 2017-07-15 10:26 | HHI.PR ---
Subjective Remarks Follow-up for discitis and epidural abscess Patient stated pain is a lot better. She had no complaints. Her nurse is at the bedside during the interview. Objective Vitals Vital Signs Date Time Temp Pulse Resp B/P (MAP) Pulse Ox O2 Delivery O2 Flow Rate FiO2 07/15/17 08:00 97.5 61 18 111/73 (86) 100 07/15/17 07:15 97.4 55 18 111/63 (79) 100 07/15/17 01:12 97.6 82 18 146/70 (95) 95 07/14/17 21:00 99.3 80 18 138/83 (101) 98 07/14/17 20:00 99.3 103 18 128/76 (93) 100 07/14/17 17:25 95 18 117/83 (94) 97 07/14/17 16:55 93 18 124/80 (95) 96 07/14/17 16:40 97.7 92 16 97 07/14/17 12:17 98.3 87 20 100/59 (73) 95 07/14/17 10:57 75 I/O 07/14/17 07/14/17 07/14/17 07/15/17 07/15/17 07/15/17 07:00 15:00 23:00 07:00 15:00 23:00 Intake Total 360 ml 250 ml Balance 360 ml 250 ml Intake Oral 360 ml IV Total 250 ml # Voids 2 Result Diagram: 07/15/1727 07/15/1727 Imaging Last Impressions Thoracic Spine MRI 07/14/17 0000 Signed Impressions: Service Date/Time: Friday, July 14, 2017 17:15 - CONCLUSION: 1. See the MRI of the cervical spine and lumbar spine reported separately. 2. Scoliotic curvature. 3. No acute abnormality. Ruperto Pozo Jr., MD Needle Biopsy/Aspiration X-Ray 07/14/17 0000 Signed Impressions: Service Date/Time: Friday, July 14, 2017 15:40 - CONCLUSION: Uncomplicated FNA of the lumbosacral disc as above. Edvin Cabrera MD Lumbar Spine MRI 07/13/17 0000 Signed Impressions: Service Date/Time: Thursday, July 13, 2017 12:49 - CONCLUSION: 1. MR findings characteristic of L5-S1 discitis with perivertebral and epidural abscess. 2. Degenerative disc disease at L2-3 with loss of height, disc desiccation and a mild, diffuse disc bulge. 3. Despite the 2 abnormal levels, spinal canal and neural foramina are adequate throughout without nerve root compromise. 4. Results were called to Dr. Kothari at the time of this dictation Edvin Cabrera MD Cervical Spine MRI 07/13/17 0000 Signed Impressions: Service Date/Time: Thursday, July 13, 2017 12:49 - CONCLUSION: 1. Edema and abnormal enhancement in both the T1 and T2 vertebral bodies. These are on the edge of the image and therefore, incompletely characterized. Dedicated MRI of the thoracic spine with and without gadolinium is recommended for further characterization. Discitis in this region cannot be completely excluded. 2. Probable 1.6 cm hemangioma at T3. 3. Partially enhancing pannus surrounding the dens of C2 may be related to the patient's baseline rheumatoid arthritis. 4. Mild degenerative disc disease predominantly at C4-5 and C5-6 with minimal encroachment on the right neural foramina at C5-6. 5. Spinal canal is patent throughout.. Edvin Cabrera MD Objective Remarks GENERAL: This is a well-nourished, well-developed female patient, lying in bed with generalized pain. SKIN: The sacral/gluteal area there is some erythema and a tiny skin tear. CARDIOVASCULAR: Regular rate and rhythm without murmurs, gallops, or rubs. RESPIRATORY: Clear to auscultation. Breath sounds equal bilaterally. No wheezes , rales, or rhonchi. GASTROINTESTINAL: Abdomen soft, non-tender, nondistended. No guarding. MUSCULOSKELETAL: Extremities without clubbing, cyanosis, or edema. No joint tenderness, effusion, or edema noted. 5 out of 5 upper and lower extremity muscle strength. Medications and IVs Current Medications Ondansetron HCl (Zofran Inj) 4 mg ONCE ONCE IV PUSH Last administered on 11:57; Start 07/13/17 at 11:45; Stop 07/13/17 at 11:46; Status DC Hydromorphone HCl (Dilaudid Pf Inj) 1 mg ONCE ONCE IV PUSH Last administered on 07/13/17 11:58; Start 07/13/17 at 11:45; Stop 07/13/17 at 11:46; Status DC Gadodiamide (Omniscan Pf Inj) 9 ml STK-MED ONCE IVCONTRAST ; Start 07/13/17 at 09:52; Stop 07/13/17 at 13:24; Status DC Hydromorphone HCl (Dilaudid Pf Inj) 1 mg ONCE ONCE IV PUSH Last administered on 07/13/17 14:18; Start 07/13/17 at 14:15; Stop 07/13/17 at 14:16; Status DC Sodium Chloride 1,000 ml @ 200 mls/hr Q5H ONCE IV Last administered on 16:50; Start 07/13/17 at 16:45; Stop 07/13/17 at 21:44; Status DC Sodium Chloride (NS Flush) 2 ml UNSCH PRN IV FLUSH FLUSH AFTER USING IV ACCESS ; Start 07/13/17 at 17:00 Sodium Chloride (NS Flush) 2 ml BID IV FLUSH Last administered on 07/15/17 09: 00; Start 07/13/17 at 21:00 Ondansetron HCl (Zofran Inj) 4 mg Q6H PRN IVP NAUSEA OR VOMITING; Start at 17:00 Enoxaparin Sodium (Lovenox Inj) 40 mg Q24H SQ ; Start 07/13/17 at 18:00; Stop 07/13/17 at 18:35; Status DC Acetaminophen/ Hydrocodone Bitart (Central 5-325 Mg) 1 tab Q4H PRN PO PAIN SCALE 3 TO 5; Start 07/13/17 at 17:00; Stop 07/14/17 at 09:42; Status DC Acetaminophen/ Hydrocodone Bitart (Central 10-325 Mg) 1 tab Q4H PRN PO PAIN SCALE 6 TO 10 Last administered on 07/14/17 09:01; Start 07/13/17 at 17:00; Stop 07/14/17 at 09:42; Status DC Naloxone HCl (Narcan Inj) 0.4 mg UNSCH PRN IV PUSH SEE LABEL COMMENTS; Start 07/13/17 at 17:00 Magnesium Hydroxide (Milk Of Magnesia Liq) 30 ml Q12H PRN PO Mild constipation ; Start 07/13/17 at 17:00 Vancomycin HCl 1000 mg/Sodium Chloride 250 ml @ 250 mls/hr ONCE ONCE IV Last administered on 07/13/17 18:11; Start 07/13/17 at 18:00; Stop 07/13/17 at 18:59 ; Status DC Pharmacy Profile Note 0 ml @ 0 mls/hr UNSCH OTHER ; Start 07/13/17 at 17:15 Lactobacillus Acidophilus (Lactinex) 1 tab TID PO Last administered on 09:07; Start 07/13/17 at 18:00 Hydromorphone HCl (Dilaudid Pf Inj) 1 mg ONCE STAT IV PUSH Last administered on 07/13/17 17:39; Start 07/13/17 at 17:26; Stop 07/13/17 at 17:35; Status DC Vancomycin HCl 800 mg/Sodium Chloride 258 ml @ 250 mls/hr Q18H IV Last administered on 07/15/17 07:02; Start 07/14/17 at 12:00; Stop 07/15/17 at 08:33 ; Status DC Miscellaneous Information SPECIFIC LAB TO BE DRAWN:VANCOMY... ONCE ONCE .XX Last administered on 07/15/17 05:40; Start 07/15/17 at 05:45; Stop 07/15/17 at 05:46; Status DC Hydromorphone HCl (Dilaudid Pf Inj) 1 mg Q4H PRN IV PUSH Breakthrough Pain Last administered on 07/14/17 22:40; Start 07/13/17 at 18:45 Pneumococcal Polyvalent Vaccine (Pneumovax-23 Inj) 25 mcg ONCE ONCE IM Last administered on 07/14/17 09:14; Start 07/14/17 at 09:00; Stop 07/14/17 at 09:01 ; Status DC Influenza Virus Vaccine (Flu (Quadrivalent) Vaccine Inj) 0.5 ml ONCE ONCE IM Last administered on 07/14/17 09:13; Start 07/14/17 at 09:00; Stop 07/14/17 at 09:01; Status DC Folic Acid (Folate) 1 mg DAILY PO Last administered on 07/15/17 09:08; Start 07/15/17 at 09:00 Hydromorphone HCl (Dilaudid) 8 mg Q12HR PRN PO Pain 1-10 Management Last administered on 07/15/17 04:19; Start 07/14/17 at 09:45 Levothyroxine Sodium (Synthroid) 125 mcg DAILY@0600 PO Last administered on 06:33; Start 07/15/17 at 06:00 Morphine Sulfate (Oramorph Sr) 60 mg Q8H PO Last administered on 07/15/17 09: 08; Start 07/14/17 at 10:00 Fentanyl Citrate (fentaNYL INJ) 100 mcg STK-MED ONCE .ROUTE Last administered on 07/14/17 15:51; Start 07/14/17 at 15:51; Stop 07/14/17 at 15:52; Status DC Midazolam HCl (Versed Inj) 2 mg STK-MED ONCE .ROUTE Last administered on 15:51; Start 07/14/17 at 15:51; Stop 07/14/17 at 15:52; Status DC Fentanyl Citrate (fentaNYL INJ) 100 mcg STK-MED ONCE .ROUTE Last administered on 07/14/17 16:13; Start 07/14/17 at 16:13; Stop 07/14/17 at 16:14; Status DC Midazolam HCl (Versed Inj) 2 mg STK-MED ONCE .ROUTE Last administered on 16:13; Start 07/14/17 at 16:13; Stop 07/14/17 at 16:14; Status DC Gadodiamide (Omniscan Pf Inj) 9 ml STK-MED ONCE IV PUSH Last administered on 17:41; Start 07/14/17 at 17:41; Stop 07/14/17 at 17:42; Status DC Miscellaneous Information SPECIFIC LAB TO BE DRAWN:VANCOMYCIN TROUGH DATE TO... ONCE ONCE .XX ; Start 07/17/17 at 05:45; Stop 07/17/17 at 05:46 Vancomycin HCl 1000 mg/Sodium Chloride 250 ml @ 250 mls/hr Q12H IV ; Start 07/15/17 at 18:00 A/P Problem List: (1) Rheumatoid arthritis ICD Code: M06.9 - Rheumatoid arthritis, unspecified (2) Chronic neck and back pain ICD Code: M54.2 - Cervicalgia; M54.9 - Dorsalgia, unspecified (3) Weakness ICD Code: R53.1 - Weakness Assessment and Plan Mrs. Shine is a 47-year-old female patient with a known medical history of rheumatoid arthritis who presented to the ED with complaints of worsening neck and back pain and increasing weakness. Acute on chronic lower back pain with history of RA suspect secondary to discitis with perivertebral and epidural abscess - Lumbar and cervical spine reviewed showing L5-S1 discitis with perivertebral and epidural abscess. Neurosurgeon following. -Status post CT-guided biopsy done on 07/14 pending results. - Blood cultures 07/13 4 out of 4 positive for gram-positive cocci. Repeat blood cultures on 07/14 2/4 positive. - Currently on vancomycin. Continue vancomycin. -Infectious disease consulted and following. Patient is recommendation. Patient may need long-term IV antibiotics. - Pain uncontrolled. At home patient is on oral morphine and Dilaudid. Currently she is on Central with IV Dilaudid for breakthrough pain. Will restart her home medication and give IV Dilaudid when necessary for any breakthrough pain. Gram-positive cocci bacteremia -Currently on vancomycin. -Patient does have a history of multiple epidural injections most likely this is the source. -Repeat blood cultures 2 out of 4 positive. COPD without acute exacerbation: Supportive care. Hypothyroidism: Continue home Levothyroxine. Sacral wound -She does have a skin tear with a possible stage I sacral wound. Will consult wound care. -Encourage ambulation. DVT prophylaxis with Lovenox. Discussed with patient's nurse, patient, patient's and sister. Altagracia Hunter MD Jul 15, 2017 10:26
[2017-07-15] MEDS: HYDROmorphone HCL PF 1 MG/ML VIAL IV PUSH PRN ×3 (11:33→20:19)
--- NOTE | 2017-07-15 14:00 | PD.WCN.NOT ---
Wound Consult Description: Received consult for evaluation of wound management of gluteal/ sacral area from Doctor Altagracia Hunter. Communicated with: RN Toshia heath, ANT heath and call placed to Doctor Dale for orders Recommendation: Please cleanse coccyx wound with normal saline or wound cleanser and pat dry. Apply skin prep to periwound and before applying adhesive foam dressing over wound and change dressing every 3 days or PRN if saturated or dislodged. Additional Information: Patient seen for wound management of gluteal/sacral area around 1320. Patient is complaining about back pain that is severe at times, that makes it difficult for bed mobility.Patient able to turn to L side with minimal assist from comic writer to reveal small partial thickness wound to coccyx area. Wound margins are even and well defined. Wound has an oval shape and measures 1cm x 0.5 cm x ~< 0.1cm.Partial thickness skin loss over kaylen prominence indicates stage 2 pressure injury. Periwound is noted with one smaller area partial thickness skin loss, with jagged wound margins and appears moisture related. Cleansed wound to coccyx with normal saline and pat dry. Sprayed Cavilon skin prep to periwound before applying Alleyvn gentle border adhesive foam dressing over wound. Spoke with patient regarding importance of offloading pressure from coccyx to prevent pressure related injuries. Patient agreed to be positioned off bottom. Pillow placed under lower R back and buttock area, and another pillow placed to support her R back and shoulder.Patient verbalizes comfort. Lowered bed to a safe height before leaving room Rosaline Blood [facility] Jul 15, 2017 14:00
--- NOTE | 2017-07-15 15:39 | HHI.IDPN ---
Note Infectious Disease Note Patient says she feels better. Afebrile. Post disc aspiration Lumbar spine. Culture has staph aureus. PAST MEDICAL HISTORY 1. Rheumatoid arthritis. 2. Chronic low back pain. 3. COPD. 4. Anxiety disorder. 5. Thyroid disease. 6. Right inguinal hernia repair. ALLERGIES PENICILLIN. ANTIBIOTICS Vancomycin. SOCIAL HISTORY No tobacco use. Positive alcohol, occasional. Denies illicit drugs. FAMILY HISTORY Noncontributory. OBJECTIVE: Vital Signs Date Time Temp Pulse Resp B/P (MAP) Pulse Ox O2 Delivery O2 Flow Rate FiO2 07/15/17 12:00 97.7 66 18 97/59 (72) 98 07/15/17 08:00 97.5 61 18 111/73 (86) 100 07/15/17 07:15 97.4 55 18 111/63 (79) 100 07/15/17 01:12 97.6 82 18 146/70 (95) 95 07/14/17 21:00 99.3 80 18 138/83 (101) 98 07/14/17 20:00 99.3 103 18 128/76 (93) 100 07/14/17 17:25 95 18 117/83 (94) 97 07/14/17 16:55 93 18 124/80 (95) 96 07/14/17 16:40 97.7 92 16 97 Laboratory Tests Test 07/14/17 06:43 07/15/17 06:27 White Blood Count 12.3 TH/MM3 10.0 TH/MM3 Red Blood Count 4.62 MIL/MM3 4.57 MIL/MM3 Hemoglobin 12.9 GM/DL 12.7 GM/DL Hematocrit 39.2 % 38.7 % Mean Corpuscular Volume 84.9 FL 84.8 FL Mean Corpuscular Hemoglobin 28.0 PG 27.8 PG Mean Corpuscular Hemoglobin Concent 33.0 % 32.8 % Red Cell Distribution Width 14.1 % 13.9 % Platelet Count 108 TH/MM3 115 TH/MM3 Mean Platelet Volume 9.8 FL 10.0 FL Neutrophils (%) (Auto) 75.2 % Lymphocytes (%) (Auto) 16.8 % Monocytes (%) (Auto) 7.0 % Eosinophils (%) (Auto) 0.8 % Basophils (%) (Auto) 0.2 % Neutrophils # (Auto) 9.3 TH/MM3 Lymphocytes # (Auto) 2.1 TH/MM3 Monocytes # (Auto) 0.9 TH/MM3 Eosinophils # (Auto) 0.1 TH/MM3 Basophils # (Auto) 0.0 TH/MM3 CBC Comment DIFF FINAL Differential Comment Laboratory Tests Test 07/14/17 06:43 07/15/17 06:27 Blood Urea Nitrogen 13 MG/DL 14 MG/DL Creatinine 0.43 MG/DL 0.46 MG/DL Random Glucose 88 MG/DL 148 MG/DL Total Protein 7.2 GM/DL Albumin 2.0 GM/DL Calcium Level 9.2 MG/DL 9.0 MG/DL Alkaline Phosphatase 129 U/L Aspartate Amino Transf (AST/SGOT) 11 U/L Alanine Aminotransferase (ALT/SGPT) 12 U/L Total Bilirubin 0.6 MG/DL Sodium Level 135 MEQ/L 136 MEQ/L Potassium Level 3.5 MEQ/L 4.1 MEQ/L Chloride Level 98 MEQ/L 99 MEQ/L Carbon Dioxide Level 28.7 MEQ/L 30.3 MEQ/L Anion Gap 8 MEQ/L 7 MEQ/L Estimat Glomerular Filtration Rate 157 ML/MIN 145 ML/MIN Microbiology Date/Time Source Procedure Growth Status 07/14/17 15:10 Blood Peripheral Aerobic Blood Culture - Preliminary Gram Positive Cocci Resulted 07/14/17 15:10 Anaerobic Blood Culture - Preliminary Gram Positive Cocci Resulted 07/14/17 15:05 Blood Peripheral Aerobic Blood Culture - Preliminary Gram Positive Cocci Resulted 07/14/17 15:05 Blood Peripheral Anaerobic Blood Culture - Preliminary NO GROWTH IN 1 DAY Resulted 07/13/17 12:00 Blood Peripheral Aerobic Blood Culture - Preliminary Staphylococcus Aureus Resulted 07/13/17 12:00 Anaerobic Blood Culture - Preliminary Staphylococcus Aureus Resulted 07/13/17 11:50 Blood Peripheral Aerobic Blood Culture - Preliminary Staphylococcus Aureus Resulted 07/13/17 11:50 Anaerobic Blood Culture - Preliminary Staphylococcus Aureus Resulted 07/14/17 16:24 Abscess Back Gram Stain - Final Resulted 07/14/17 16:24 Wound Culture - Preliminary Staphylococcus Aureus Resulted IMAGING: Thoracic Spine MRI 07/14/17 0000 Signed Impressions: Service Date/Time: Friday, July 14, 2017 17:15 - CONCLUSION: 1. See the MRI of the cervical spine and lumbar spine reported separately. 2. Scoliotic curvature. 3. No acute abnormality. Ruperto Pozo Jr., MD Needle Biopsy/Aspiration X-Ray 07/14/17 0000 Signed Impressions: Service Date/Time: Friday, July 14, 2017 15:40 - CONCLUSION: Uncomplicated FNA of the lumbosacral disc as above. Edvin Cabrera MD Lumbar Spine MRI 07/13/17 0000 Signed Impressions: Service Date/Time: Thursday, July 13, 2017 12:49 - CONCLUSION: 1. MR findings characteristic of L5-S1 discitis with perivertebral and epidural abscess. 2. Degenerative disc disease at L2-3 with loss of height, disc desiccation and a mild, diffuse disc bulge. 3. Despite the 2 abnormal levels, spinal canal and neural foramina are adequate throughout without nerve root compromise. 4. Results were called to Dr. Kothari at the time of this dictation Edvin Cabrera MD Cervical Spine MRI 07/13/17 0000 Signed Impressions: Service Date/Time: Thursday, July 13, 2017 12:49 - CONCLUSION: 1. Edema and abnormal enhancement in both the T1 and T2 vertebral bodies. These are on the edge of the image and therefore, incompletely characterized. Dedicated MRI of the thoracic spine with and without gadolinium is recommended for further characterization. Discitis in this region cannot be completely excluded. 2. Probable 1.6 cm hemangioma at T3. 3. Partially enhancing pannus surrounding the dens of C2 may be related to the patient's baseline rheumatoid arthritis. 4. Mild degenerative disc disease predominantly at C4-5 and C5-6 with minimal encroachment on the right neural foramina at C5-6. 5. Spinal canal is patent throughout.. Edvin Cabrera MD PHYSICAL EXAMINATION GENERAL: No acute distress. She is awake, alert and oriented. HEENT: The head is atraumatic. Extraocular movements grossly intact. Pupils reactive to light. No icterus. Oropharynx no visible lesions. NECK: supple. LUNGS: Clear to auscultation. HEART: Regular S1 and S2, without audible murmurs. ABDOMEN: Bowel sounds present. Soft. No tenderness. EXTREMITIES: No clubbing, cyanosis or edema. SKIN: No rash. NEUROLOGIC: No gross focal findings. IMPRESSION Discitis, paravertebral and epidural abscess Lumbar spine. Staph aureus. Bacteremia staph aureus. RECOMMENDATIONS 1. Continue vancomycin. 2. Monitor cultures. The patient will need long-term IV antibiotics for treatment of this infection. Jay Mohan MD Jul 15, 2017 15:39
[2017-07-15] MEDS: VANCOMYCIN 1,000 MG/NS 250 ML IV SCH ×2 (17:37)
--- NOTE | 2017-07-15 18:09 | HHI.NSPN ---
(Norm Koroma) History Chief Complaint: Neck pain (Norm Koroma) Interval History 07/14: Ms. Shine is a 47-year-old lady who presented to [facility] room last evening with complaint of neck and back pain for approximately 2 months. She has had previous episodes of spinal pain. She recently presented in May 2017 to the emergency room with several days of severe low back pain which had been evaluated at [facility] emergency room prior to presenting to [place] emergency room on May 23, 2017. She reportedly had an MRI of the lumbar spine done at [facility] emergency room which she indicated was negative for any acute findings. A CT scan at [place] emergency room revealed degenerative changes. It was noted that she had leukocytosis, which was felt to likely be related to steroids. The patient requested discharge home on 05/24/17 to follow up with her pain management physician. She has gone to a chiropractor recently with increase in the pain symptoms during the treatment. She does have a history of rheumatoid arthritis and is on prednisone and methotrexate. 07/15: When seen this afternoon the patient states that she is doing better than yesterday. She does have pain to the neck and the lower back. She also has numbness to the toes. Her arms and legs feel weak. She went for an aspiration of the L5-S1 disc yesterday as well as an MRI of the thoracic spine. (Norm Koroma) System Review Comments MUSCULOSKELETAL: Pain to the neck and lower back with the neck worse. Weakness to the arms and legs. NEUROLOGICAL: Numbness to the toes. (Norm Koroma) Exam Results 07/13/17 07/13/17 07/14/17 07/14/17 07/15/17 07/15/17 06:00 18:00 06:00 18:00 06:00 18:00 Intake Total 610 ml 250 ml Output Total 200 ml Balance 410 ml 250 ml Intake Oral 360 ml IV Total 250 ml 250 ml Output Urine Total 200 ml # Voids 3 3 # Bowel Movements 0 Vital Signs Date Time Temp Pulse Resp B/P (MAP) Pulse Ox O2 Delivery O2 Flow Rate FiO2 07/15/17 16:00 98.3 72 18 101/56 (71) 99 07/15/17 12:00 97.7 66 18 97/59 (72) 98 07/15/17 08:00 97.5 61 18 111/73 (86) 100 07/15/17 07:15 97.4 55 18 111/63 (79) 100 07/15/17 01:12 97.6 82 18 146/70 (95) 95 07/14/17 21:00 99.3 80 18 138/83 (101) 98 07/14/17 20:00 99.3 103 18 128/76 (93) 100 07/14/17 17:25 95 18 117/83 (94) 97 07/14/17 16:55 93 18 124/80 (95) 96 07/14/17 16:40 97.7 92 16 97 07/14/17 12:17 98.3 87 20 100/59 (73) 95 07/14/17 10:57 75 07/14/17 07:00 97.6 64 20 134/75 (94) 100 07/14/17 05:35 97.8 81 18 133/71 (91) 96 07/14/17 03:28 94 07/14/17 00:30 97.7 78 18 141/78 (99) 94 07/13/17 21:31 98 Nasal Cannula 2.00 07/13/17 21:00 98.1 81 18 130/62 (84) 97 07/13/17 20:16 120/78 (92) 98 Nasal Cannula 2.00 07/13/17 18:42 91 20 123/76 (92) 98 Nasal Cannula 2.00 07/13/17 17:45 87 20 106/59 (75) 93 Room Air 07/13/17 17:40 90 16 104/65 (78) 95 Room Air 07/13/17 16:08 92 119/84 (96) 07/13/17 14:51 16 07/13/17 14:25 16 07/13/17 11:19 110 20 140/80 (100) 97 Room Air 07/13/17 09:53 98.6 126 20 127/84 (98) 98 (Norm Koroma) Physical Examination GENERAL: Awake & alert, readily interacts, normal affect, in no apparent distress. NECK: Midline cervical spine TTP, no JVD, trachea midline. MUSCULOSKELETAL: SETH but limited movement of both wrists, no evident clubbing, deformity to right wrist, nodules to digits of both hands. TTP at the lumbosacral junction. NEUROLOGICAL: AAOx3. Speech clear & appropriate. Follows simple commands w/o difficulty. Sensation intact to light touch to all extremities except for toes which is decreased. Motor strength: RUE: Deltoid 4+/5, biceps 5/5, triceps 4/5, hand intrinsics & extrinsics 2/ 5. LUE: Deltoid 5/5, biceps 5/5, triceps 4+/5, hand intrinsics & extrinsics 2/ 5. RLE: Iliopsoas 45, quadriceps 5/5, hamstrings 4 to 4+/5, anterior tibialis 5/ 5, gastrocnemius 4+ to 5/5, extensor hallucis longus 4+/5. LLE: Iliopsoas 4 to 4+/5, quadriceps 5/5, hamstrings 4 to 4+/5, anterior tibialis 5/5, gastrocnemius 4+ to 5/5, extensor hallucis longus 4/5. (Norm Koroma) Lab, Micro, Other Results Recent Impressions Thoracic Spine MRI 07/14/17 0000 Signed Impressions: Service Date/Time: Friday, July 14, 2017 17:15 - CONCLUSION: 1. See the MRI of the cervical spine and lumbar spine reported separately. 2. Scoliotic curvature. 3. No acute abnormality. Ruperto Pozo Jr., MD Needle Biopsy/Aspiration X-Ray 07/14/17 0000 Signed Impressions: Service Date/Time: Friday, July 14, 2017 15:40 - CONCLUSION: Uncomplicated FNA of the lumbosacral disc as above. Edvin Cabrera MD Lumbar Spine MRI 07/13/17 0000 Signed Impressions: Service Date/Time: Thursday, July 13, 2017 12:49 - CONCLUSION: 1. MR findings characteristic of L5-S1 discitis with perivertebral and epidural abscess. 2. Degenerative disc disease at L2-3 with loss of height, disc desiccation and a mild, diffuse disc bulge. 3. Despite the 2 abnormal levels, spinal canal and neural foramina are adequate throughout without nerve root compromise. 4. Results were called to Dr. Kothari at the time of this dictation Edvin Cabrera MD Cervical Spine MRI 07/13/17 0000 Signed Impressions: Service Date/Time: Thursday, July 13, 2017 12:49 - CONCLUSION: 1. Edema and abnormal enhancement in both the T1 and T2 vertebral bodies. These are on the edge of the image and therefore, incompletely characterized. Dedicated MRI of the thoracic spine with and without gadolinium is recommended for further characterization. Discitis in this region cannot be completely excluded. 2. Probable 1.6 cm hemangioma at T3. 3. Partially enhancing pannus surrounding the dens of C2 may be related to the patient's baseline rheumatoid arthritis. 4. Mild degenerative disc disease predominantly at C4-5 and C5-6 with minimal encroachment on the right neural foramina at C5-6. 5. Spinal canal is patent throughout.. Edvin Cabrera MD Laboratory Tests Test 07/13/17 11:50 07/14/17 06:43 07/14/17 14:55 07/15/17 05:30 White Blood Count 15.8 TH/MM3 12.3 TH/MM3 Red Blood Count 4.93 MIL/MM3 4.62 MIL/MM3 Hemoglobin 13.5 GM/DL 12.9 GM/DL Hematocrit 40.7 % 39.2 % Mean Corpuscular Volume 82.6 FL 84.9 FL Mean Corpuscular Hemoglobin 27.5 PG 28.0 PG Mean Corpuscular Hemoglobin Concent 33.2 % 33.0 % Red Cell Distribution Width 13.4 % 14.1 % Platelet Count 135 TH/MM3 108 TH/MM3 Mean Platelet Volume 9.0 FL 9.8 FL Neutrophils (%) (Auto) 81.4 % 75.2 % Lymphocytes (%) (Auto) 11.3 % 16.8 % Monocytes (%) (Auto) 6.7 % 7.0 % Eosinophils (%) (Auto) 0.4 % 0.8 % Basophils (%) (Auto) 0.2 % 0.2 % Neutrophils # (Auto) 12.8 TH/MM3 9.3 TH/MM3 Lymphocytes # (Auto) 1.8 TH/MM3 2.1 TH/MM3 Monocytes # (Auto) 1.1 TH/MM3 0.9 TH/MM3 Eosinophils # (Auto) 0.1 TH/MM3 0.1 TH/MM3 Basophils # (Auto) 0.0 TH/MM3 0.0 TH/MM3 CBC Comment AUTO DIFF DIFF FINAL Differential Total Cells Counted 100 Neutrophils % (Manual) 69 % Band Neutrophils % 1 % Lymphocytes % 20 % Monocytes % 9 % Neutrophils # (Manual) 11.2 TH/MM3 Myelocytes 1 % Differential Comment FINAL DIFF MANUAL Platelet Estimate LOW Platelet Morphology Comment NORMAL Red Cell Morphology Comment NORMAL Erythrocyte Sedimentation Rate 12 mm/hr Blood Urea Nitrogen 17 MG/DL 13 MG/DL Creatinine 0.69 MG/DL 0.43 MG/DL Random Glucose 160 MG/DL 88 MG/DL Total Protein 7.7 GM/DL 7.2 GM/DL Albumin 2.3 GM/DL 2.0 GM/DL Calcium Level 8.8 MG/DL 9.2 MG/DL Alkaline Phosphatase 141 U/L 129 U/L Aspartate Amino Transf (AST/SGOT) 6 U/L 11 U/L Alanine Aminotransferase (ALT/SGPT) 13 U/L 12 U/L Total Bilirubin 0.7 MG/DL 0.6 MG/DL Sodium Level 134 MEQ/L 135 MEQ/L Potassium Level 3.7 MEQ/L 3.5 MEQ/L Chloride Level 98 MEQ/L 98 MEQ/L Carbon Dioxide Level 30.4 MEQ/L 28.7 MEQ/L Anion Gap 6 MEQ/L 8 MEQ/L Estimat Glomerular Filtration Rate 91 ML/MIN 157 ML/MIN C-Reactive Protein 14.80 MG/DL Prothrombin Time 11.6 SEC Prothromb Time International Ratio 1.0 RATIO Activated Partial Thromboplast Time 33.6 SEC Vancomycin Level Trough 4.5 MCG/ML Test 07/15/17 06:27 White Blood Count 10.0 TH/MM3 Red Blood Count 4.57 MIL/MM3 Hemoglobin 12.7 GM/DL Hematocrit 38.7 % Mean Corpuscular Volume 84.8 FL Mean Corpuscular Hemoglobin 27.8 PG Mean Corpuscular Hemoglobin Concent 32.8 % Red Cell Distribution Width 13.9 % Platelet Count 115 TH/MM3 Mean Platelet Volume 10.0 FL Blood Urea Nitrogen 14 MG/DL Creatinine 0.46 MG/DL Random Glucose 148 MG/DL Calcium Level 9.0 MG/DL Sodium Level 136 MEQ/L Potassium Level 4.1 MEQ/L Chloride Level 99 MEQ/L Carbon Dioxide Level 30.3 MEQ/L Anion Gap 7 MEQ/L Estimat Glomerular Filtration Rate 145 ML/MIN (Norm Koroma) Medical Decision Making Impression and Plan Impression: 1. L5-S1 discitis with perivertebral inflammation-abscess. There is a very small probable epidural abscess component, without significant canal stenosis or nerve impingement. 2. Rheumatoid arthritis Patient doing well, some weakness to the extremities. Reviewed labs for today. Improvement in leukocytosis. Cultures with Staph aureus . Plan: Will follow while in the hospital. Mobilise patient w/assistance, no reaching or lifting though. Antibiotics per Infectious Disease. (Norm Koroma) Attending Statement The exam, history, and the medical decision-making described in the above note were completed with the assistance of the mid-level provider. I reviewed and agree with the findings presented. I attest that I had a [id number] encounter with the patient on the same day, and personally performed and documented my assessment and findings in the medical record. Stable neurologic examination. No significant lower extremity deficit Continuing antibiotics per infectious disease Plan follow-up MRI cervical and lumbar spine in the next week. (García New MD) Norm Koroma Jul 15, 2017 18:09 García New MD Jul 22, 2017 20:19
[2017-07-16] VITALS (7 sets, daily range): BP systolic 100–126; BP diastolic 51–65; PULSE 61–85; RESP 18–20; TEMP 97.8–99.4; O2SAT 95–100
[2017-07-16] MEDS: MORPHINE SULFATE 60 MG CONTROLLED RELEASE TAB PO SCH ×3 (01:27→17:32)
[2017-07-16] MEDS: LEVOTHYROXINE SODIUM 125 MCG TAB PO SCH (05:47)
[2017-07-16] MEDS: VANCOMYCIN 1,000 MG/NS 250 ML IV SCH ×4 (05:47→17:32)
[2017-07-16] MEDS: HYDROmorphone HCL PF 1 MG/ML VIAL IV PUSH PRN ×5 (05:48→22:24)
[2017-07-16] MEDS: LACTOBACILLUS ACIDOPHILUS TAB PO SCH ×3 (08:46→17:32)
[2017-07-16] MEDS: FOLIC ACID 1 MG TAB PO SCH (08:46)
[2017-07-16] MEDS: SODIUM CHLORIDE 0.9% FLUSH 10 ML FLUSH IV FLUSH SCH ×2 (08:53→21:14)
--- NOTE | 2017-07-16 09:45 | HHI.PR ---
Subjective Remarks Follow-up for bacteremia and epidural abscess Patient stated that when she walks she gets this sharp pain rating down her leg. Otherwise she has no complaints. She remains afebrile. Deny any lower she me weakness. Denies any fecal or urine incontinence. Objective Vitals Vital Signs Date Time Temp Pulse Resp B/P (MAP) Pulse Ox O2 Delivery O2 Flow Rate FiO2 07/16/17 08:35 98 Nasal Cannula 2.00 07/16/17 08:20 97.8 81 20 126/65 (85) 99 07/16/17 04:00 98.7 61 18 104/51 (68) 100 07/16/17 00:00 98.3 71 18 100/57 (71) 99 07/15/17 20:00 97.8 73 18 100/55 (70) 98 07/15/17 16:00 98.3 72 18 101/56 (71) 99 07/15/17 12:00 97.7 66 18 97/59 (72) 98 I/O 07/15/17 07/15/17 07/15/17 07/16/17 07/16/17 07/16/17 07:00 15:00 23:00 07:00 15:00 23:00 Intake Total 221 ml Balance 221 ml IV Total 221 ml # Voids 3 2 # Bowel Movements 0 Result Diagram: 07/15/1762607/15/17626 Objective Remarks GENERAL: This is a well-nourished, well-developed female patient, lying in bed with generalized pain. SKIN: The sacral/gluteal area there is some erythema and a tiny skin tear. CARDIOVASCULAR: Regular rate and rhythm without murmurs, gallops, or rubs. RESPIRATORY: Clear to auscultation. Breath sounds equal bilaterally. No wheezes , rales, or rhonchi. GASTROINTESTINAL: Abdomen soft, non-tender, nondistended. No guarding. MUSCULOSKELETAL: Extremities without clubbing, cyanosis, or edema. No joint tenderness, effusion, or edema noted. 5 out of 5 upper and lower extremity muscle strength. Medications and IVs Current Medications Ondansetron HCl (Zofran Inj) 4 mg ONCE ONCE IV PUSH Last administered on t 11:57; Start 07/13/17 at 11:45; Stop 07/13/17 at 11:46; Status DC Hydromorphone HCl (Dilaudid Pf Inj) 1 mg ONCE ONCE IV PUSH Last administered on 07/13/17 11:58; Start 07/13/17 at 11:45; Stop 07/13/17 at 11:46; Status DC Gadodiamide (Omniscan Pf Inj) 9 ml STK-MED ONCE IVCONTRAST ; Start 07/13/17 at 09:52; Stop 07/13/17 at 13:24; Status DC Hydromorphone HCl (Dilaudid Pf Inj) 1 mg ONCE ONCE IV PUSH Last administered on 07/13/17 14:18; Start 07/13/17 at 14:15; Stop 07/13/17 at 14:16; Status DC Sodium Chloride 1,000 ml @ 200 mls/hr Q5H ONCE IV Last administered on 16:50; Start 07/13/17 at 16:45; Stop 07/13/17 at 21:44; Status DC Sodium Chloride (NS Flush) 2 ml UNSCH PRN IV FLUSH FLUSH AFTER USING IV ACCESS ; Start 07/13/17 at 17:00 Sodium Chloride (NS Flush) 2 ml BID IV FLUSH Last administered on 07/16/17 08: 53; Start 07/13/17 at 21:00 Ondansetron HCl (Zofran Inj) 4 mg Q6H PRN IVP NAUSEA OR VOMITING; Start at 17:00 Enoxaparin Sodium (Lovenox Inj) 40 mg Q24H SQ ; Start 07/13/17 at 18:00; Stop 07/13/17 at 18:35; Status DC Acetaminophen/ Hydrocodone Bitart ([place] 5-325 Mg) 1 tab Q4H PRN PO PAIN SCALE 3 TO 5; Start 07/13/17 at 17:00; Stop 07/14/17 at 09:42; Status DC Acetaminophen/ Hydrocodone Bitart ([place] 10-325 Mg) 1 tab Q4H PRN PO PAIN SCALE 6 TO 10 Last administered on 07/14/17 09:01; Start 07/13/17 at 17:00; Stop 07/14/17 at 09:42; Status DC Naloxone HCl (Narcan Inj) 0.4 mg UNSCH PRN IV PUSH SEE LABEL COMMENTS; Start 07/13/17 at 17:00 Magnesium Hydroxide (Milk Of Magndemetris Liq) 30 ml Q12H PRN PO Mild constipation ; Start 07/13/17 at 17:00 Vancomycin HCl 1000 mg/Sodium Chloride 250 ml @ 250 mls/hr ONCE ONCE IV Last administered on 07/13/17 18:11; Start 07/13/17 at 18:00; Stop 07/13/17 at 18:59 ; Status DC Pharmacy Profile Note 0 ml @ 0 mls/hr UNSCH OTHER ; Start 07/13/17 at 17:15 Lactobacillus Acidophilus (Lactinex) 1 tab TID PO Last administered on 08:46; Start 07/13/17 at 18:00 Hydromorphone HCl (Dilaudid Pf Inj) 1 mg ONCE STAT IV PUSH Last administered on 07/13/17 17:39; Start 07/13/17 at 17:26; Stop 07/13/17 at 17:35; Status DC Vancomycin HCl 800 mg/Sodium Chloride 258 ml @ 250 mls/hr Q18H IV Last administered on 07/15/17 07:02; Start 07/14/17 at 12:00; Stop 07/15/17 at 08:33 ; Status DC Miscellaneous Information SPECIFIC LAB TO BE DRAWN:VANCOMY... ONCE ONCE .XX Last administered on 07/15/17 05:40; Start 07/15/17 at 05:45; Stop 07/15/17 at 05:46; Status DC Hydromorphone HCl (Dilaudid Pf Inj) 1 mg Q4H PRN IV PUSH Breakthrough Pain Last administered on 07/16/17 05:48; Start 07/13/17 at 18:45 Pneumococcal Polyvalent Vaccine (Pneumovax-23 Inj) 25 mcg ONCE ONCE IM Last administered on 07/14/17 09:14; Start 07/14/17 at 09:00; Stop 07/14/17 at 09:01 ; Status DC Influenza Virus Vaccine (Flu (Quadrivalent) Vaccine Inj) 0.5 ml ONCE ONCE IM Last administered on 07/14/17 09:13; Start 07/14/17 at 09:00; Stop 07/14/17 at 09:01; Status DC Folic Acid (Folate) 1 mg DAILY PO Last administered on 07/16/17 08:46; Start 07/15/17 at 09:00 Hydromorphone HCl (Dilaudid) 8 mg Q12HR PRN PO Pain 1-10 Management Last administered on 07/15/17 22:14; Start 07/14/17 at 09:45 Levothyroxine Sodium (Synthroid) 125 mcg DAILY@0600 PO Last administered on 05:47; Start 07/15/17 at 06:00 Morphine Sulfate (Oramorph Sr) 60 mg Q8H PO Last administered on 07/16/17 08: 47; Start 07/14/17 at 10:00 Fentanyl Citrate (fentaNYL INJ) 100 mcg STK-MED ONCE .ROUTE Last administered on 07/14/17 15:51; Start 07/14/17 at 15:51; Stop 07/14/17 at 15:52; Status DC Midazolam HCl (Versed Inj) 2 mg STK-MED ONCE .ROUTE Last administered on 15:51; Start 07/14/17 at 15:51; Stop 07/14/17 at 15:52; Status DC Fentanyl Citrate (fentaNYL INJ) 100 mcg STK-MED ONCE .ROUTE Last administered on 07/14/17 16:13; Start 07/14/17 at 16:13; Stop 07/14/17 at 16:14; Status DC Midazolam HCl (Versed Inj) 2 mg STK-MED ONCE .ROUTE Last administered on 16:13; Start 07/14/17 at 16:13; Stop 07/14/17 at 16:14; Status DC Gadodiamide (Omniscan Pf Inj) 9 ml STK-MED ONCE IV PUSH Last administered on 17:41; Start 07/14/17 at 17:41; Stop 07/14/17 at 17:42; Status DC Miscellaneous Information SPECIFIC LAB TO BE DRAWN:VANCOMYCIN TROUGH DATE TO... ONCE ONCE .XX ; Start 07/17/17 at 05:45; Stop 07/17/17 at 05:46 Vancomycin HCl 1000 mg/Sodium Chloride 250 ml @ 250 mls/hr Q12H IV Last administered on 07/16/17 05:47; Start 07/15/17 at 18:00 A/P Problem List: (1) Rheumatoid arthritis ICD Code: M06.9 - Rheumatoid arthritis, unspecified (2) Chronic neck and back pain ICD Code: M54.2 - Cervicalgia; M54.9 - Dorsalgia, unspecified (3) Weakness ICD Code: R53.1 - Weakness Assessment and Plan Mrs. Shine is a 47-year-old female patient with a known medical history of rheumatoid arthritis who presented to the ED with complaints of worsening neck and back pain and increasing weakness. Acute on chronic lower back pain with history of RA suspect secondary to discitis with perivertebral and epidural abscess - Lumbar and cervical spine reviewed showing L5-S1 discitis with perivertebral and epidural abscess. Neurosurgeon following. -Status post CT-guided biopsy done on 07/14 pending results. - Blood cultures 07/13 4 out of 4 positive for gram-positive cocci. Repeat blood cultures on 07/14 2/4 positive. - Currently on vancomycin. Continue vancomycin. -Infectious disease consulted and following. Per infectious disease patient may need long-term IV antibiotics. - Continue home oral morphine and Dilaudid. Will add gabapentin for the neuropathic type pain. -Wound culture grew staph aureus pending sensitivity. Gram-positive cocci bacteremia -Currently on vancomycin. -Patient does have a history of multiple epidural injections most likely this is the source. -Repeated blood cultures 3 out of 4 positive. Will repeat blood cultures today. We'll get an echo to rule out any endocarditis. COPD without acute exacerbation: Supportive care. Hypothyroidism: Continue home Levothyroxine. Sacral wound -Stage II. Wound care nurse is managing. DVT prophylaxis with Lovenox. Altagracia Hunter MD Jul 16, 2017 09:45
[2017-07-16] MEDS: GABAPENTIN 100 MG CAP PO SCH ×3 (10:18→17:32)
[2017-07-16] MEDS: HYDROmorphone HCL 4 MG TAB PO PRN (11:52)
--- NOTE | 2017-07-16 12:08 | HHI.NSPN ---
History Chief Complaint: Neck pain Interval History Patient is status post L5-S1 CT-guided disc biopsy. System Review Comments Patient states that the severity and frequency of her neck and low back pain are improved compared to last week. She now has back pain only when she stands up. No complaints of bowel or bladder dysfunction Exam Results Vital Signs Date Time Temp Pulse Resp B/P (MAP) Pulse Ox O2 Delivery O2 Flow Rate FiO2 07/16/17 08:35 98 Nasal Cannula 2.00 07/16/17 08:20 97.8 81 20 126/65 (85) Physical Examination GENERAL: Awake & alert, readily interacts, normal affect, in no apparent distress. NECK: Midline cervical spine TTP, no JVD, trachea midline. MUSCULOSKELETAL: SETH but limited movement of both wrists, no evident clubbing, deformity to right wrist, nodules to digits of both hands. TTP at the lumbosacral junction. NEUROLOGICAL: AAOx3. Speech clear & appropriate. Follows simple commands w/o difficulty. Sensation intact to light touch to all extremities except for toes which is decreased. Motor strength: Strength is mostly 4+-5/5 throughout the upper and lower extremities except for limited hand intrinsic motor strength which appears to be primarily related to arthritic changes. Josselyn's response absent bilateral Lab, Micro, Other Results Laboratory Tests Test 07/16/17 08:50 Creatinine 0.42 MG/DL Estimat Glomerular Filtration Rate 161 ML/MIN Medical Decision Making Impression and Plan Impression: 1. Stable neurologic exam in patient with L5-S1 discitis. Very small epidural abscess component noted on MRI without significant mass effect or nerve root compromise. Plan: Continue antibiotic coverage. ID following. Continue activity as tolerated Plan to check follow-up x-rays of the spine next week. García New MD Jul 16, 2017 12:08
--- NOTE | 2017-07-16 15:06 | HHI.IDPN ---
Note Infectious Disease Note Patient is up in chair. Feels okay. Notes her pain in the back is better. Afebrile. Post disc aspiration Lumbar spine. Culture has staph aureus. PAST MEDICAL HISTORY 1. Rheumatoid arthritis. 2. Chronic low back pain. 3. COPD. 4. Anxiety disorder. 5. Thyroid disease. 6. Right inguinal hernia repair. ALLERGIES PENICILLIN. ANTIBIOTICS Vancomycin. SOCIAL HISTORY No tobacco use. Positive alcohol, occasional. Denies illicit drugs. FAMILY HISTORY Noncontributory. OBJECTIVE: Vital Signs Date Time Temp Pulse Resp B/P (MAP) Pulse Ox O2 Delivery O2 Flow Rate FiO2 07/16/17 12:23 98.2 85 20 105/60 (75) 97 07/16/17 08:35 98 Nasal Cannula 2.00 07/16/17 08:20 97.8 81 20 126/65 (85) 99 07/16/17 06:03 64 07/16/17 04:00 98.7 61 18 104/51 (68) 100 07/16/17 00:00 98.3 71 18 100/57 (71) 99 07/15/17 20:00 97.8 73 18 100/55 (70) 98 07/15/17 16:00 98.3 72 18 101/56 (71) 99 Laboratory Tests Test 07/15/17 06:27 White Blood Count 10.0 TH/MM3 Red Blood Count 4.57 MIL/MM3 Hemoglobin 12.7 GM/DL Hematocrit 38.7 % Mean Corpuscular Volume 84.8 FL Mean Corpuscular Hemoglobin 27.8 PG Mean Corpuscular Hemoglobin Concent 32.8 % Red Cell Distribution Width 13.9 % Platelet Count 115 TH/MM3 Mean Platelet Volume 10.0 FL Laboratory Tests Test 07/15/17 06:27 07/16/17 08:50 Blood Urea Nitrogen 14 MG/DL Creatinine 0.46 MG/DL 0.42 MG/DL Random Glucose 148 MG/DL Calcium Level 9.0 MG/DL Sodium Level 136 MEQ/L Potassium Level 4.1 MEQ/L Chloride Level 99 MEQ/L Carbon Dioxide Level 30.3 MEQ/L Anion Gap 7 MEQ/L Estimat Glomerular Filtration Rate 145 ML/MIN 161 ML/MIN Microbiology Date/Time Source Procedure Growth Status 07/16/17 10:41 Blood Peripheral Aerobic Blood Culture Pending Received 07/16/17 10:41 Blood Peripheral Anaerobic Blood Culture Pending Received 07/16/17 10:35 Blood Peripheral Aerobic Blood Culture Pending Received 07/16/17 10:35 Blood Peripheral Anaerobic Blood Culture Pending Received 07/14/17 15:10 Blood Peripheral Aerobic Blood Culture - Final Staphylococcus Aureus Complete 07/14/17 15:10 Anaerobic Blood Culture - Final Staphylococcus Aureus Complete 07/14/17 15:05 Blood Peripheral Aerobic Blood Culture - Final Staphylococcus Aureus Complete 07/14/17 15:05 Anaerobic Blood Culture - Final Staphylococcus Aureus Complete 07/14/17 16:24 Abscess Back Gram Stain - Final Complete 07/14/17 16:24 Wound Culture - Final Staphylococcus Aureus Complete IMAGING: Thoracic Spine MRI 07/14/17 0000 Signed Impressions: Service Date/Time: Friday, July 14, 2017 17:15 - CONCLUSION: 1. See the MRI of the cervical spine and lumbar spine reported separately. 2. Scoliotic curvature. 3. No acute abnormality. Ruperto Pozo Jr., MD Needle Biopsy/Aspiration X-Ray 07/14/17 0000 Signed Impressions: Service Date/Time: Friday, July 14, 2017 15:40 - CONCLUSION: Uncomplicated FNA of the lumbosacral disc as above. Edvin Cabrera MD Lumbar Spine MRI 07/13/17 0000 Signed Impressions: Service Date/Time: Thursday, July 13, 2017 12:49 - CONCLUSION: 1. MR findings characteristic of L5-S1 discitis with perivertebral and epidural abscess. 2. Degenerative disc disease at L2-3 with loss of height, disc desiccation and a mild, diffuse disc bulge. 3. Despite the 2 abnormal levels, spinal canal and neural foramina are adequate throughout without nerve root compromise. 4. Results were called to Dr. Kothari at the time of this dictation Edvin Cabrera MD Cervical Spine MRI 07/13/17 0000 Signed Impressions: Service Date/Time: Thursday, July 13, 2017 12:49 - CONCLUSION: 1. Edema and abnormal enhancement in both the T1 and T2 vertebral bodies. These are on the edge of the image and therefore, incompletely characterized. Dedicated MRI of the thoracic spine with and without gadolinium is recommended for further characterization. Discitis in this region cannot be completely excluded. 2. Probable 1.6 cm hemangioma at T3. 3. Partially enhancing pannus surrounding the dens of C2 may be related to the patient's baseline rheumatoid arthritis. 4. Mild degenerative disc disease predominantly at C4-5 and C5-6 with minimal encroachment on the right neural foramina at C5-6. 5. Spinal canal is patent throughout.. Edvin Cabrera MD PHYSICAL EXAMINATION GENERAL: No acute distress. HEENT: The head is atraumatic. Extraocular movements grossly intact. Pupils reactive to light. No icterus. Oropharynx no visible lesions. NECK: supple. LUNGS: Clear to auscultation. HEART: Regular S1 and S2, without audible murmurs. ABDOMEN: Bowel sounds present. Soft. No tenderness. EXTREMITIES: No clubbing, cyanosis or edema. SKIN: No rash. NEUROLOGIC: No gross focal findings. IMPRESSION Discitis, paravertebral and epidural abscess Lumbar spine. Staph aureus. Bacteremia staph aureus. RECOMMENDATIONS 1. Continue vancomycin. 2. Monitor repeat blood culture. The patient will need arrangement for 8 weeks of IV antibiotics for treatment of this infection. Jay Mohan MD Jul 16, 2017 15:06
--- NOTE | 2017-07-16 16:29 | ECHRPT ---
Indication: Acute and subacute endocarditis, unspecified CONCLUSIONS Normal left ventricular size and wall thickness. The left ventricular systolic function is normal wi th an estimated ejection fraction in the range of 60-65%. There is mild tricuspid valve regurgitation. The estimated pulmonary arterial pressure is 30.3 mmHg. Trivial pericardial effusion. BP: 126 / 65 HR: 81 Rhythm: Sinus MEASUREMENTS (Male / Female) Normal Values Technical Quality:Fair 2D ECHO LV Diastolic Diameter PLAX 4.1 cm 4.2 - 5.9 / 3.9 - 5.3 cm LV Systolic Diameter PLAX 2.9 cm IVS Diastolic Thickness 0.9 cm 0.6 - 1.0 / 0.6 - 0.9 cm LVPW Diastolic Thickness 0.9 cm 0.6 - 1.0 / 0.6 - 0.9 cm LV Relative Wall Thickness 0.4 LVOT Diameter 2.0 cm M-MODE Aortic Root Diameter MM 2.4 cm LA Systolic Diameter MM 2.8 cm LA Ao Ratio MM 1.2 AV Cusp Separation MM 2.1 cm DOPPLER AV Peak Velocity 130.0 cm/s AV Peak Gradient 6.8 mmHg LVOT Peak Velocity 103.0 cm/s LVOT Peak Gradient 4.2 mmHg AV Area Cont Eq pk 2.5 cm Mitral E Point Velocity 71.1 cm/s Mitral A Point Velocity 57.8 cm/s Mitral E to A Ratio 1.2 LV E' Lateral Velocity 13.0 cm/s Mitral E to LV E' Lateral Ratio 5.5 LV E' Septal Velocity 8.8 cm/s Mitral E to LV E' Septal Ratio 8.1 TR Peak Velocity 225.0 cm/s TR Peak Gradient 20.3 mmHg Right Atrial Pressure 10.0 mmHg Pulmonary Artery Systolic Pressu 30.3 mmHg Right Ventricular Systolic Press 30.3 mmHg PV Peak Velocity 132.0 cm/s PV Peak Gradient 7.0 mmHg FINDINGS LEFT VENTRICLE Normal left ventricular size and wall thickness. The left ventricular systolic function is normal wi th an estimated ejection fraction in the range of 60-65%. Left ventricular diastolic function parameters a re normal. RIGHT VENTRICLE Normal right ventricular size and systolic function. LEFT ATRIUM The left atrial size is normal. RIGHT ATRIUM The right atrial size is normal. ATRIAL SEPTUM Normal atrial septal thickness without atrial level shunting by limited color doppler interrogation. AORTA The aortic root and proximal ascending aorta are normal in size on limited imaging. MITRAL VALVE Structurally normal mitral valve. No mitral valve stenosis or regurgitation. AORTIC VALVE Trileaflet aortic valve. No aortic valve stenosis or regurgitation. TRICUSPID VALVE There is mild tricuspid valve regurgitation. The estimated pulmonary arterial pressure is 30.3 mmHg. PULMONARY VALVE No pulmonary valve regurgitation or stenosis. VESSELS The inferior vena cava is normal in size. PERICARDIUM Trivial pericardial effusion. Mir Bae MD (Electronically Signed) Final Date:16 July 2017 16:28
[2017-07-17] VITALS (9 sets, daily range): BP systolic 94–117; BP diastolic 55–81; PULSE 76–101; RESP 20; TEMP 98.4–98.8; O2SAT 95–97
[2017-07-17] MEDS: HYDROmorphone HCL 4 MG TAB PO PRN ×2 (00:41→15:19)
[2017-07-17] MEDS: MORPHINE SULFATE 60 MG CONTROLLED RELEASE TAB PO SCH ×3 (02:04→16:54)
[2017-07-17] MEDS ORDERED: PHARMACY ORDERED LAB ONE (05:45)
[2017-07-17] MEDS: VANCOMYCIN 1,000 MG/NS 250 ML IV SCH ×2 (05:46)
[2017-07-17] MEDS: LEVOTHYROXINE SODIUM 125 MCG TAB PO SCH (05:47)
[2017-07-17 08:00] LABS: HEMATOCRIT 37.9 % (35.0-46.0); MEAN CORPUSCULAR HEMOGLOBIN 28.3 PG (27.0-34.0); MEAN CORPUSCULAR HGB CONC 33.7 % (32.0-36.0); PLATELET COUNT 138 TH/MM3 (150-450); RED BLOOD COUNT 4.51 MIL/MM3 (4.00-5.30); RED CELL DISTRIBUTION WIDTH 14.1 % (11.6-17.2); REVIEW FLAG FINAL; WHITE BLOOD COUNT 12.7 TH/MM3 (4.0-11.0)
[2017-07-17 08:39] LABS: BICARBONATE 29.2 MEQ/L (21.0-32.0); POTASSIUM 3.8 MEQ/L (3.5-5.1)
[2017-07-17] MEDS: LACTOBACILLUS ACIDOPHILUS TAB PO SCH ×3 (08:46→16:55)
[2017-07-17] MEDS: GABAPENTIN 100 MG CAP PO SCH ×3 (08:46→16:54)
[2017-07-17] MEDS: FOLIC ACID 1 MG TAB PO SCH (08:47)
[2017-07-17] MEDS: SODIUM CHLORIDE 0.9% FLUSH 10 ML FLUSH IV FLUSH SCH ×2 (08:47→22:00)
--- NOTE | 2017-07-17 11:15 | HHI.PR ---
Subjective Remarks Follow-up for bacteremia, discitis and epidural abscess Patient stated she is feeling better today. She feels like the Neurontin helped with the pain. She remains afebrile. She has no other complaints. Her and friend are at the bedside during interview. Objective Vitals Vital Signs Date Time Temp Pulse Resp B/P (MAP) Pulse Ox O2 Delivery O2 Flow Rate FiO2 07/17/17 08:00 98.5 81 20 117/81 (93) 95 07/17/17 04:00 98.4 84 20 117/69 (85) 95 07/17/17 01:24 92 07/17/17 00:00 98.8 86 20 109/63 (78) 95 07/16/17 21:21 21 07/16/17 16:32 99.4 83 20 116/61 (79) 95 07/16/17 12:23 98.2 85 20 105/60 (75) 97 I/O 07/16/17 07/16/17 07/16/17 07/17/17 07/17/17 07/17/17 07:00 15:00 23:00 07:00 15:00 23:00 Intake Total 730 ml 490 ml Balance 730 ml 490 ml Intake Oral 480 ml 240 ml IV Total 250 ml 250 ml # Voids 5 3 3 Result Diagram: 07/17/1770707/17/17707 Objective Remarks GENERAL: This is a well-nourished, well-developed female patient, lying in bed with generalized pain. SKIN: The sacral/gluteal area there is some erythema and a tiny skin tear. CARDIOVASCULAR: Regular rate and rhythm without murmurs, gallops, or rubs. RESPIRATORY: Clear to auscultation. Breath sounds equal bilaterally. No wheezes , rales, or rhonchi. GASTROINTESTINAL: Abdomen soft, non-tender, nondistended. No guarding. MUSCULOSKELETAL: Extremities without clubbing, cyanosis, or edema. No joint tenderness, effusion, or edema noted. 5 out of 5 upper and lower extremity muscle strength. Medications and IVs Current Medications Ondansetron HCl (Zofran Inj) 4 mg ONCE ONCE IV PUSH Last administered on t 11:57; Start 07/13/17 at 11:45; Stop 07/13/17 at 11:46; Status DC Hydromorphone HCl (Dilaudid Pf Inj) 1 mg ONCE ONCE IV PUSH Last administered on 07/13/17 11:58; Start 07/13/17 at 11:45; Stop 07/13/17 at 11:46; Status DC Gadodiamide (Omniscan Pf Inj) 9 ml STK-MED ONCE IVCONTRAST ; Start 07/13/17 at 09:52; Stop 07/13/17 at 13:24; Status DC Hydromorphone HCl (Dilaudid Pf Inj) 1 mg ONCE ONCE IV PUSH Last administered on 07/13/17 14:18; Start 07/13/17 at 14:15; Stop 07/13/17 at 14:16; Status DC Sodium Chloride 1,000 ml @ 200 mls/hr Q5H ONCE IV Last administered on 16:50; Start 07/13/17 at 16:45; Stop 07/13/17 at 21:44; Status DC Sodium Chloride (NS Flush) 2 ml UNSCH PRN IV FLUSH FLUSH AFTER USING IV ACCESS ; Start 07/13/17 at 17:00 Sodium Chloride (NS Flush) 2 ml BID IV FLUSH Last administered on 07/16/17 21: 14; Start 07/13/17 at 21:00 Ondansetron HCl (Zofran Inj) 4 mg Q6H PRN IVP NAUSEA OR VOMITING; Start at 17:00 Enoxaparin Sodium (Lovenox Inj) 40 mg Q24H SQ ; Start 07/13/17 at 18:00; Stop 07/13/17 at 18:35; Status DC Acetaminophen/ Hydrocodone Bitart ([place] 5-325 Mg) 1 tab Q4H PRN PO PAIN SCALE 3 TO 5; Start 07/13/17 at 17:00; Stop 07/14/17 at 09:42; Status DC Acetaminophen/ Hydrocodone Bitart ([place] 10-325 Mg) 1 tab Q4H PRN PO PAIN SCALE 6 TO 10 Last administered on 07/14/17 09:01; Start 07/13/17 at 17:00; Stop 07/14/17 at 09:42; Status DC Naloxone HCl (Narcan Inj) 0.4 mg UNSCH PRN IV PUSH SEE LABEL COMMENTS; Start 07/13/17 at 17:00 Magnesium Hydroxide (Milk Of Kamar Liq) 30 ml Q12H PRN PO Mild constipation ; Start 07/13/17 at 17:00 Vancomycin HCl 1000 mg/Sodium Chloride 250 ml @ 250 mls/hr ONCE ONCE IV Last administered on 07/13/17 18:11; Start 07/13/17 at 18:00; Stop 07/13/17 at 18:59 ; Status DC Pharmacy Profile Note 0 ml @ 0 mls/hr UNSCH OTHER ; Start 07/13/17 at 17:15 Lactobacillus Acidophilus (Lactinex) 1 tab TID PO Last administered on 08:46; Start 07/13/17 at 18:00 Hydromorphone HCl (Dilaudid Pf Inj) 1 mg ONCE STAT IV PUSH Last administered on 07/13/17 17:39; Start 07/13/17 at 17:26; Stop 07/13/17 at 17:35; Status DC Vancomycin HCl 800 mg/Sodium Chloride 258 ml @ 250 mls/hr Q18H IV Last administered on 07/15/17 07:02; Start 07/14/17 at 12:00; Stop 07/15/17 at 08:33 ; Status DC Miscellaneous Information SPECIFIC LAB TO BE DRAWN:VANCOMY... ONCE ONCE .XX Last administered on 07/15/17 05:40; Start 07/15/17 at 05:45; Stop 07/15/17 at 05:46; Status DC Hydromorphone HCl (Dilaudid Pf Inj) 1 mg Q4H PRN IV PUSH Breakthrough Pain Last administered on 07/16/17 22:24; Start 07/13/17 at 18:45 Pneumococcal Polyvalent Vaccine (Pneumovax-23 Inj) 25 mcg ONCE ONCE IM Last administered on 07/14/17 09:14; Start 07/14/17 at 09:00; Stop 07/14/17 at 09:01 ; Status DC Influenza Virus Vaccine (Flu (Quadrivalent) Vaccine Inj) 0.5 ml ONCE ONCE IM Last administered on 07/14/17 09:13; Start 07/14/17 at 09:00; Stop 07/14/17 at 09:01; Status DC Folic Acid (Folate) 1 mg DAILY PO Last administered on 07/17/17 08:47; Start 07/15/17 at 09:00 Hydromorphone HCl (Dilaudid) 8 mg Q12HR PRN PO Pain 1-10 Management Last administered on 07/17/17 00:41; Start 07/14/17 at 09:45 Levothyroxine Sodium (Synthroid) 125 mcg DAILY@0600 PO Last administered on 05:47; Start 07/15/17 at 06:00 Morphine Sulfate (Oramorph Sr) 60 mg Q8H PO Last administered on 07/17/17 08: 47; Start 07/14/17 at 10:00 Fentanyl Citrate (fentaNYL INJ) 100 mcg STK-MED ONCE .ROUTE Last administered on 07/14/17 15:51; Start 07/14/17 at 15:51; Stop 07/14/17 at 15:52; Status DC Midazolam HCl (Versed Inj) 2 mg STK-MED ONCE .ROUTE Last administered on 15:51; Start 07/14/17 at 15:51; Stop 07/14/17 at 15:52; Status DC Fentanyl Citrate (fentaNYL INJ) 100 mcg STK-MED ONCE .ROUTE Last administered on 07/14/17 16:13; Start 07/14/17 at 16:13; Stop 07/14/17 at 16:14; Status DC Midazolam HCl (Versed Inj) 2 mg STK-MED ONCE .ROUTE Last administered on 16:13; Start 07/14/17 at 16:13; Stop 07/14/17 at 16:14; Status DC Gadodiamide (Omniscan Pf Inj) 9 ml STK-MED ONCE IV PUSH Last administered on 17:41; Start 07/14/17 at 17:41; Stop 07/14/17 at 17:42; Status DC Miscellaneous Information SPECIFIC LAB TO BE DRAWN:VANCOMYCIN TROUGH DATE TO... ONCE ONCE .XX Last administered on 07/17/17 05:46; Start 07/17/17 at 05:45 ; Stop 07/17/17 at 05:46; Status DC Vancomycin HCl 1000 mg/Sodium Chloride 250 ml @ 250 mls/hr Q12H IV Last administered on 07/17/17 05:46; Start 07/15/17 at 18:00; Stop 07/17/17 at 09: 17; Status DC Gabapentin (Neurontin) 100 mg TID PO Last administered on 07/17/17t 08:46; Start 07/16/17 at 10:00 Vancomycin HCl 800 mg/Sodium Chloride 258 ml @ 250 mls/hr Q8H IV ; Start 07/17 at 14:00 Miscellaneous Information SPECIFIC LAB TO BE ... ONCE ONCE .XX ; Start 07/24 at 05:45; Stop 07/18/17 at 05:46 A/P Problem List: (1) Rheumatoid arthritis ICD Code: M06.9 - Rheumatoid arthritis, unspecified (2) Chronic neck and back pain ICD Code: M54.2 - Cervicalgia; M54.9 - Dorsalgia, unspecified (3) Weakness ICD Code: R53.1 - Weakness Assessment and Plan Mrs. Shine is a 47-year-old female patient with a known medical history of rheumatoid arthritis who presented to the ED with complaints of worsening neck and back pain and increasing weakness. Acute on chronic lower back pain with history of RA suspect secondary to discitis with perivertebral and epidural abscess - Lumbar and cervical spine reviewed showing L5-S1 discitis with perivertebral and epidural abscess. Neurosurgeon following. -Status post CT-guided biopsy done on 07/14 positive for staph aureus. - Blood cultures 07/13 4 out of 4 positive staph aureus. Repeat blood cultures on 07/14 4 out of 4 positive for staph aureus. Pending blood cultures from 07/16 - Currently on vancomycin. Continue vancomycin. -Infectious disease consulted and following. Per infectious disease patient may need long-term IV antibiotics for 8 weeks.. - Continue home oral morphine and Dilaudid. Continue with gabapentin for neuropathic pain. Staph aureus bacteremia -Currently on vancomycin. -Patient does have a history of multiple epidural injections most likely this is the source. -Echo negative for any vegetation. See treatment as above. COPD without acute exacerbation: Supportive care. Hypothyroidism: Continue home Levothyroxine. Sacral wound -Stage II. Wound care nurse is managing. DVT prophylaxis with Lovenox. Discharge Planning Patient will need long-term IV antibiotics for 8 weeks. Blood cultures must be negative for at least 3 days before a PICC line can be placed. Altagracia Hunter MD Jul 17, 2017 11:14
--- NOTE | 2017-07-17 13:37 | HHI.IDPN ---
Note Infectious Disease Note Patient is up in chair. Feels okay. Notes her pain in the back is better. Has pain in her posterior neck. Afebrile. Repeat blood culture neg x 1 day. PAST MEDICAL HISTORY 1. Rheumatoid arthritis. 2. Chronic low back pain. 3. COPD. 4. Anxiety disorder. 5. Thyroid disease. 6. Right inguinal hernia repair. ALLERGIES PENICILLIN. ANTIBIOTICS Vancomycin. SOCIAL HISTORY No tobacco use. Positive alcohol, occasional. Denies illicit drugs. FAMILY HISTORY Noncontributory. OBJECTIVE: Vital Signs Date Time Temp Pulse Resp B/P (MAP) Pulse Ox O2 Delivery O2 Flow Rate FiO2 07/17/17 08:00 98.5 81 20 117/81 (93) 95 07/17/17 04:00 98.4 84 20 117/69 (85) 95 07/17/17 01:24 92 07/17/17 00:00 98.8 86 20 109/63 (78) 95 07/16/17 21:21 21 07/16/17 16:32 99.4 83 20 116/61 (79) 95 Laboratory Tests Test 07/17/17 07:08 White Blood Count 12.7 TH/MM3 Red Blood Count 4.51 MIL/MM3 Hemoglobin 12.8 GM/DL Hematocrit 37.9 % Mean Corpuscular Volume 84.0 FL Mean Corpuscular Hemoglobin 28.3 PG Mean Corpuscular Hemoglobin Concent 33.7 % Red Cell Distribution Width 14.1 % Platelet Count 138 TH/MM3 Mean Platelet Volume 9.5 FL Laboratory Tests Test 07/16/17 08:50 07/17/17 07:08 Creatinine 0.42 MG/DL 0.48 MG/DL Estimat Glomerular Filtration Rate 161 ML/MIN 138 ML/MIN Blood Urea Nitrogen 5 MG/DL Random Glucose 96 MG/DL Calcium Level 9.1 MG/DL Sodium Level 138 MEQ/L Potassium Level 3.8 MEQ/L Chloride Level 101 MEQ/L Carbon Dioxide Level 29.2 MEQ/L Anion Gap 8 MEQ/L Microbiology Date/Time Source Procedure Growth Status 07/16/17 10:41 Blood Peripheral Aerobic Blood Culture - Preliminary NO GROWTH IN 1 DAY Resulted 07/16/17 10:41 Blood Peripheral Anaerobic Blood Culture - Preliminary NO GROWTH IN 1 DAY Resulted 07/16/17 10:35 Blood Peripheral Aerobic Blood Culture - Preliminary NO GROWTH IN 1 DAY Resulted 07/16/17 10:35 Blood Peripheral Anaerobic Blood Culture - Preliminary NO GROWTH IN 1 DAY Resulted 07/14/17 15:10 Blood Peripheral Aerobic Blood Culture - Final Staphylococcus Aureus Complete 07/14/17 15:10 Anaerobic Blood Culture - Final Staphylococcus Aureus Complete 07/14/17 15:05 Blood Peripheral Aerobic Blood Culture - Final Staphylococcus Aureus Complete 07/14/17 15:05 Anaerobic Blood Culture - Final Staphylococcus Aureus Complete 07/14/17 16:24 Abscess Back Gram Stain - Final Complete 07/14/17 16:24 Wound Culture - Final Staphylococcus Aureus Complete IMAGING: Thoracic Spine MRI 07/14/17 0000 Signed Impressions: Service Date/Time: Friday, July 14, 2017 17:15 - CONCLUSION: 1. See the MRI of the cervical spine and lumbar spine reported separately. 2. Scoliotic curvature. 3. No acute abnormality. Ruperto Pozo Jr., MD Needle Biopsy/Aspiration X-Ray 07/14/17 0000 Signed Impressions: Service Date/Time: Friday, July 14, 2017 15:40 - CONCLUSION: Uncomplicated FNA of the lumbosacral disc as above. Edvin Cabrera MD Lumbar Spine MRI 07/13/17 0000 Signed Impressions: Service Date/Time: Thursday, July 13, 2017 12:49 - CONCLUSION: 1. MR findings characteristic of L5-S1 discitis with perivertebral and epidural abscess. 2. Degenerative disc disease at L2-3 with loss of height, disc desiccation and a mild, diffuse disc bulge. 3. Despite the 2 abnormal levels, spinal canal and neural foramina are adequate throughout without nerve root compromise. 4. Results were called to Dr. Kothari at the time of this dictation Edvin Cabrera MD Cervical Spine MRI 07/13/17 0000 Signed Impressions: Service Date/Time: Thursday, July 13, 2017 12:49 - CONCLUSION: 1. Edema and abnormal enhancement in both the T1 and T2 vertebral bodies. These are on the edge of the image and therefore, incompletely characterized. Dedicated MRI of the thoracic spine with and without gadolinium is recommended for further characterization. Discitis in this region cannot be completely excluded. 2. Probable 1.6 cm hemangioma at T3. 3. Partially enhancing pannus surrounding the dens of C2 may be related to the patient's baseline rheumatoid arthritis. 4. Mild degenerative disc disease predominantly at C4-5 and C5-6 with minimal encroachment on the right neural foramina at C5-6. 5. Spinal canal is patent throughout.. Edvin Cabrera MD PHYSICAL EXAMINATION GENERAL: No acute distress. HEENT: The head is atraumatic. Extraocular movements grossly intact. Pupils reactive to light. No icterus. Oropharynx no visible lesions. NECK: supple. Pain at the posterior aspect. LUNGS: Clear to auscultation. HEART: Regular S1 and S2, without audible murmurs. ABDOMEN: Bowel sounds present. Soft. No tenderness. EXTREMITIES: No clubbing, cyanosis or edema. SKIN: No rash. NEUROLOGIC: No gross focal findings. IMPRESSION Discitis, paravertebral and small epidural abscess Lumbar spine. Staph aureus. neurosurgery following. Bacteremia staph aureus. Neck pain. RECOMMENDATIONS 1. Continue vancomycin. 2. Monitor repeat blood culture. 3. PIC after negative blood culture day 3. 4. Heating pad to posterior neck. The patient will need arrangement for 8 weeks of IV antibiotics for treatment of this infection. Jay Mohan MD Jul 17, 2017 13:37
[2017-07-17] MEDS: HYDROmorphone HCL PF 1 MG/ML VIAL IV PUSH PRN ×3 (13:41→23:25)
[2017-07-17] MEDS: VANCOMYCIN INJ 800 MG in SODIUM CHLOR 0.9% 250 ML INJ 250 ML IV SCH ×2 (13:45→22:01)
[2017-07-18] VITALS (8 sets, daily range): BP systolic 99–128; BP diastolic 51–65; PULSE 74–99; RESP 16–20; TEMP 97.5–99.6; O2SAT 95–97
[2017-07-18] MEDS: MORPHINE SULFATE 60 MG CONTROLLED RELEASE TAB PO SCH ×3 (02:41→17:33)
[2017-07-18] MEDS: HYDROmorphone HCL 4 MG TAB PO PRN ×2 (03:23→16:01)
[2017-07-18] MEDS ORDERED: PHARMACY ORDERED LAB ONE (05:45)
[2017-07-18] MEDS: VANCOMYCIN INJ 800 MG in SODIUM CHLOR 0.9% 250 ML INJ 250 ML IV SCH ×3 (05:53→23:20)
[2017-07-18] MEDS: LEVOTHYROXINE SODIUM 125 MCG TAB PO SCH (05:53)
[2017-07-18] MEDS: HYDROmorphone HCL PF 1 MG/ML VIAL IV PUSH PRN ×5 (06:06→23:20)
[2017-07-18] MEDS: GABAPENTIN 100 MG CAP PO SCH ×3 (09:08→17:33)
[2017-07-18] MEDS: FOLIC ACID 1 MG TAB PO SCH (09:08)
[2017-07-18] MEDS: LACTOBACILLUS ACIDOPHILUS TAB PO SCH ×3 (09:08→17:33)
[2017-07-18] MEDS: SODIUM CHLORIDE 0.9% FLUSH 10 ML FLUSH IV FLUSH SCH ×2 (09:08→21:00)
--- NOTE | 2017-07-18 10:21 | HHI.PR ---
Subjective Remarks In the [facility]. No fevers or chills overnight. No n/v/d/c. Denies chest pain or sob. Objective Vitals Vital Signs Date Time Temp Pulse Resp B/P (MAP) Pulse Ox O2 Delivery O2 Flow Rate FiO2 07/18/17 08:01 76 07/18/17 08:00 97.8 74 18 114/59 (77) 95 07/18/17 03:24 98.3 77 16 99/56 (70) 07/18/17 00:00 98.7 90 20 103/63 (76) 95 07/17/17 20:13 90 07/17/17 20:00 98.4 101 20 94/55 (68) 97 07/17/17 16:00 98.8 92 20 104/67 (79) 95 07/17/17 14:19 76 07/17/17 12:00 98.6 88 20 99/63 (75) 95 I/O 07/17/17 07/17/17 07/17/17 07/18/17 07/18/17 07/18/17 07:00 15:00 23:00 07:00 15:00 23:00 Intake Total 150 ml 480 ml 240 ml 500 ml Balance 150 ml 480 ml 240 ml 500 ml Intake Oral 480 ml 240 ml IV Total 150 ml 500 ml # Voids 3 3 2 # Bowel Movements 1 Result Diagram: 07/17/17 0708 07/18/17 0548 Imaging Last Impressions Thoracic Spine MRI 07/14/17 0000 Signed Impressions: Service Date/Time: Friday, July 14, 2017 17:15 - CONCLUSION: 1. See the MRI of the cervical spine and lumbar spine reported separately. 2. Scoliotic curvature. 3. No acute abnormality. Ruperto Pozo Jr., MD Needle Biopsy/Aspiration X-Ray 07/14/17 0000 Signed Impressions: Service Date/Time: Friday, July 14, 2017 15:40 - CONCLUSION: Uncomplicated FNA of the lumbosacral disc as above. Edvin Cabrera MD Lumbar Spine MRI 07/13/17 0000 Signed Impressions: Service Date/Time: Thursday, July 13, 2017 12:49 - CONCLUSION: 1. MR findings characteristic of L5-S1 discitis with perivertebral and epidural abscess. 2. Degenerative disc disease at L2-3 with loss of height, disc desiccation and a mild, diffuse disc bulge. 3. Despite the 2 abnormal levels, spinal canal and neural foramina are adequate throughout without nerve root compromise. 4. Results were called to Dr. Kothari at the time of this dictation Edvin Cabrera MD Cervical Spine MRI 07/13/17 0000 Signed Impressions: Service Date/Time: Thursday, July 13, 2017 12:49 - CONCLUSION: 1. Edema and abnormal enhancement in both the T1 and T2 vertebral bodies. These are on the edge of the image and therefore, incompletely characterized. Dedicated MRI of the thoracic spine with and without gadolinium is recommended for further characterization. Discitis in this region cannot be completely excluded. 2. Probable 1.6 cm hemangioma at T3. 3. Partially enhancing pannus surrounding the dens of C2 may be related to the patient's baseline rheumatoid arthritis. 4. Mild degenerative disc disease predominantly at C4-5 and C5-6 with minimal encroachment on the right neural foramina at C5-6. 5. Spinal canal is patent throughout.. Edvin Cabrera MD Objective Remarks GENERAL: This is a well-nourished, well-developed female patient, lying in bed with generalized pain. SKIN: The sacral/gluteal area there is some erythema and a tiny skin tear. CARDIOVASCULAR: Regular rate and rhythm without murmurs, gallops, or rubs. RESPIRATORY: Clear to auscultation. Breath sounds equal bilaterally. No wheezes , rales, or rhonchi. GASTROINTESTINAL: Abdomen soft, non-tender, nondistended. No guarding. MUSCULOSKELETAL: Extremities without clubbing, cyanosis, or edema. No joint tenderness, effusion, or edema noted. 5 out of 5 upper and lower extremity muscle strength. A/P Problem List: (1) Rheumatoid arthritis ICD Code: M06.9 - Rheumatoid arthritis, unspecified (2) Chronic neck and back pain ICD Code: M54.2 - Cervicalgia; M54.9 - Dorsalgia, unspecified (3) Weakness ICD Code: R53.1 - Weakness Assessment and Plan Mrs. Shine is a 47-year-old female patient with a known medical history of rheumatoid arthritis who presented to the ED with complaints of worsening neck and back pain and increasing weakness. Acute on chronic lower back pain with history of RA suspect secondary to discitis with perivertebral and epidural abscess - Lumbar and cervical spine reviewed showing L5-S1 discitis with perivertebral and epidural abscess. Neurosurgeon following. -Status post CT-guided biopsy done on 07/14 positive for staph aureus. - Blood cultures 07/13 4 out of 4 positive staph aureus. Repeat blood cultures on 07/14 4 out of 4 positive for staph aureus. Pending blood cultures from 07/16 - Currently on vancomycin. Continue vancomycin. -Infectious disease consulted and following. Per infectious disease patient may need long-term IV antibiotics for 8 weeks.. - Continue home oral morphine and Dilaudid. Continue with gabapentin for neuropathic pain. Staph aureus bacteremia -Currently on vancomycin. -Patient does have a history of multiple epidural injections most likely this is the source. -Echo negative for any vegetation. See treatment as above. COPD without acute exacerbation: Supportive care. Hypothyroidism: Continue home Levothyroxine. Sacral wound -Stage II. Wound care nurse is managing. DVT prophylaxis with Lovenox. Discharge Planning Patient will need long-term IV antibiotics for 8 weeks. Blood cultures must be negative for at least 3 days before a PICC line can be placed. Raina Griffin MD Jul 18, 2017 10:21
[2017-07-19] VITALS (8 sets, daily range): BP systolic 91–108; BP diastolic 50–61; PULSE 71–91; RESP 16–19; TEMP 97.7–99.2; O2SAT 95–97
[2017-07-19] MEDS: MORPHINE SULFATE 60 MG CONTROLLED RELEASE TAB PO SCH ×3 (02:53→17:19)
[2017-07-19] MEDS: HYDROmorphone HCL PF 1 MG/ML VIAL IV PUSH PRN ×5 (04:36→21:27)
[2017-07-19] MEDS: HYDROmorphone HCL 4 MG TAB PO PRN ×2 (04:36→16:11)
[2017-07-19] MEDS: VANCOMYCIN INJ 800 MG in SODIUM CHLOR 0.9% 250 ML INJ 250 ML IV SCH ×3 (06:45→21:28)
[2017-07-19] MEDS: LEVOTHYROXINE SODIUM 125 MCG TAB PO SCH (06:45)
[2017-07-19] MEDS: FOLIC ACID 1 MG TAB PO SCH (09:16)
[2017-07-19] MEDS: SODIUM CHLORIDE 0.9% FLUSH 10 ML FLUSH IV FLUSH SCH ×2 (09:16→21:00)
[2017-07-19] MEDS: LACTOBACILLUS ACIDOPHILUS TAB PO SCH ×3 (09:16→17:19)
[2017-07-19] MEDS: GABAPENTIN 100 MG CAP PO SCH ×3 (09:16→17:19)
[2017-07-19] MEDS ORDERED: CYCLOBENZAPRINE HCL 10 MG TAB PO ONE (11:00)
[2017-07-19] MEDS ORDERED: CYCLOBENZAPRINE HCL 10 MG TAB PO PRN (11:00)
--- NOTE | 2017-07-19 11:16 | HHI.PR ---
Subjective Remarks With muscle spasms. Pain is fairly controlled.No n/v/d/c. No fever ro chills. Denies chest pain or palpitations. Was able to ambulate some. Objective Vitals Vital Signs Date Time Temp Pulse Resp B/P (MAP) Pulse Ox O2 Delivery O2 Flow Rate FiO2 07/19/17 08:03 78 07/19/17 08:00 97.7 75 18 106/58 (74) 97 07/19/17 05:26 98.5 79 19 98/55 (69) 96 07/19/17 00:55 98.7 83 19 93/55 (68) 96 07/18/17 22:03 99.6 95 18 105/51 (69) 95 07/18/17 20:11 99 07/18/17 16:00 98.0 82 18 128/61 (83) 97 07/18/17 12:00 97.5 77 19 115/65 (82) 96 I/O 07/18/17 07/18/17 07/18/17 07/19/17 07/19/17 07/19/17 07:00 15:00 23:00 07:00 15:00 23:00 Intake Total 500 ml 480 ml 258 ml 258 ml Balance 500 ml 480 ml 258 ml 258 ml Intake Oral 480 ml IV Total 500 ml 258 ml 258 ml # Voids 4 1 # Bowel Movements 1 Result Diagram: 07/17/17 0708 07/18/17 0548 Objective Remarks GENERAL: This is a well-nourished, well-developed female patient, lying in bed with generalized pain. SKIN: The sacral/gluteal area there is some erythema and a tiny skin tear. CARDIOVASCULAR: Regular rate and rhythm without murmurs, gallops, or rubs. RESPIRATORY: Clear to auscultation. Breath sounds equal bilaterally. No wheezes , rales, or rhonchi. GASTROINTESTINAL: Abdomen soft, non-tender, nondistended. No guarding. MUSCULOSKELETAL: Extremities without clubbing, cyanosis, or edema. No joint tenderness, effusion, or edema noted. 5 out of 5 upper and lower extremity muscle strength. A/P Problem List: (1) Rheumatoid arthritis ICD Code: M06.9 - Rheumatoid arthritis, unspecified (2) Chronic neck and back pain ICD Code: M54.2 - Cervicalgia; M54.9 - Dorsalgia, unspecified (3) Weakness ICD Code: R53.1 - Weakness Assessment and Plan Mrs. Shine is a 47-year-old female patient with a known medical history of rheumatoid arthritis who presented to the ED with complaints of worsening neck and back pain and increasing weakness. Acute on chronic lower back pain with history of RA suspect secondary to discitis with perivertebral and epidural abscess - Lumbar and cervical spine reviewed showing L5-S1 discitis with perivertebral and epidural abscess. Neurosurgeon following. -Status post CT-guided biopsy done on 07/14 positive for staph aureus. - Blood cultures 07/13 4 out of 4 positive staph aureus. Repeat blood cultures on 07/14 4 out of 4 positive for staph aureus. Pending blood cultures from 07/16 - Currently on vancomycin. Continue vancomycin. -Infectious disease consulted and following. Per infectious disease patient may need long-term IV antibiotics for 8 weeks.. - Continue home oral morphine and Dilaudid. Continue with gabapentin for neuropathic pain. Staph aureus bacteremia -Currently on vancomycin. -Patient does have a history of multiple epidural injections most likely this is the source. -Echo negative for any vegetation. See treatment as above. COPD without acute exacerbation: Supportive care. Hypothyroidism: Continue home Levothyroxine. Sacral wound -Stage II. Wound care nurse is managing. DVT prophylaxis with Lovenox. Discharge Planning Patient will need long-term IV antibiotics for 8 weeks. Blood cultures must be negative for at least 3 days before a PICC line can be placed. Raina Griffin MD Jul 19, 2017 11:16
[2017-07-20] VITALS (7 sets, daily range): BP systolic 92–111; BP diastolic 50–57; PULSE 75–91; RESP 17–18; TEMP 98.1–99.4; O2SAT 94–96
[2017-07-20] MEDS: MORPHINE SULFATE 60 MG CONTROLLED RELEASE TAB PO SCH ×3 (02:01→17:48)
[2017-07-20] MEDS: HYDROmorphone HCL PF 1 MG/ML VIAL IV PUSH PRN ×4 (02:01→20:50)
[2017-07-20] MEDS: HYDROmorphone HCL 4 MG TAB PO PRN ×2 (04:46→22:13)
[2017-07-20] MEDS ORDERED: PHARMACY ORDERED LAB ONE (05:45)
[2017-07-20] MEDS: VANCOMYCIN INJ 800 MG in SODIUM CHLOR 0.9% 250 ML INJ 250 ML IV SCH (05:58)
[2017-07-20] MEDS: LEVOTHYROXINE SODIUM 125 MCG TAB PO SCH (05:59)
[2017-07-20 07:45] LABS: VANCOMYCIN TROUGH 18.4 MCG/ML (5.0-10.0)
[2017-07-20] MEDS: FOLIC ACID 1 MG TAB PO SCH (09:29)
[2017-07-20] MEDS: LACTOBACILLUS ACIDOPHILUS TAB PO SCH ×3 (09:29→17:48)
[2017-07-20] MEDS: GABAPENTIN 100 MG CAP PO SCH ×3 (09:29→17:48)
--- NOTE | 2017-07-20 10:02 | HHI.NSPN ---
(Norm Koroma) History Chief Complaint: Neck and back pain (Nrom Koroma) Interval History 07/14: Ms. Shine is a 47-year-old lady who presented to [facility] Emergency room last evening with complaint of neck and back pain for approximately 2 months. She has had previous episodes of spinal pain. She recently presented in May 2017 to the emergency room with several days of severe low back pain which had been evaluated at [facility] emergency room prior to presenting to [place] emergency room on May 23, 2017. She reportedly had an MRI of the lumbar spine done at [facility] emergency room which she indicated was negative for any acute findings. A CT scan at [place] emergency room revealed degenerative changes. It was noted that she had leukocytosis, which was felt to likely be related to steroids. The patient requested discharge home on 05/24/17 to follow up with her pain management physician. She has gone to a chiropractor recently with increase in the pain symptoms during the treatment. She does have a history of rheumatoid arthritis and is on prednisone and methotrexate. 07/15: When seen this afternoon the patient states that she is doing better than yesterday. She does have pain to the neck and the lower back. She also has numbness to the toes. Her arms and legs feel weak. She went for an aspiration of the L5-S1 disc yesterday as well as an MRI of the thoracic spine. 07/20: This morning the patient is doing all right. She does continue to have pain to the neck and back with weakness to the extremities. (Norm Koroma) System Review Comments MUSCULOSKELETAL: Neck and back pain persist. NEUROLOGICAL: Weakness to the arms and legs. Denies any numbness or tingling. The remainder of the ROS is negative. (Norm Koroma) Exam Results 07/18/17 07/18/17 07/19/17 07/19/17 07/20/17 07/20/17 06:00 18:00 06:00 18:00 06:00 18:00 Intake Total 490 ml 988 ml 996 ml 250 ml Balance 490 ml 988 ml 996 ml 250 ml Intake Oral 240 ml 480 ml 480 ml IV Total 250 ml 508 ml 516 ml 250 ml # Voids 2 4 1 3 2 2 # Bowel Movements 1 1 0 Vital Signs Date Time Temp Pulse Resp B/P (MAP) Pulse Ox O2 Delivery O2 Flow Rate FiO2 07/20/17 07:57 98.7 75 17 95/50 (65) 96 07/20/17 05:59 98.8 76 18 97/54 (68) 95 07/20/17 01:46 99.4 89 18 97/55 (69) 94 07/19/17 21:00 99.2 91 16 93/50 (64) 95 07/19/17 16:50 101/59 (73) 07/19/17 16:00 97.9 80 18 91/52 (65) 96 07/19/17 12:00 97.8 71 18 108/61 (77) 96 07/19/17 08:03 78 07/19/17 08:00 97.7 75 18 106/58 (74) 97 07/19/17 05:26 98.5 79 19 98/55 (69) 96 07/19/17 00:55 98.7 83 19 93/55 (68) 96 07/18/17 22:03 99.6 95 18 105/51 (69) 95 07/18/17 20:11 99 07/18/17 16:00 98.0 82 18 128/61 (83) 97 07/18/17 12:00 97.5 77 19 115/65 (82) 96 07/18/17 08:01 76 07/18/17 08:00 97.8 74 18 114/59 (77) 95 07/18/17 03:24 98.3 77 16 99/56 (70) 07/18/17 00:00 98.7 90 20 103/63 (76) 95 07/17/17 20:13 90 07/17/17 20:00 98.4 101 20 94/55 (68) 97 07/17/17 16:00 98.8 92 20 104/67 (79) 95 07/17/17 14:19 76 07/17/17 12:00 98.6 88 20 99/63 (75) 95 (Norm Koroma) Physical Examination GENERAL: Awake & alert, readily interacts, affect slightly flat, no apparent distress. NECK: Midline cervical spine TTP, no JVD, trachea midline. MUSCULOSKELETAL: SETH. TTP at the cervicothoracic & lumbosacral junction. NEUROLOGICAL: AAOx3. Speech clear & appropriate. Follows simple commands w/o difficulty. Sensation intact to light touch to all extremities except for toes which is decreased. Motor strength is mostly 4/5 to the upper extremities and 4+/5 to the lower extremities. Hand intrinsics & extrinsics not tested. (Norm Koroma) Lab, Micro, Other Results Laboratory Tests Test 07/18/17 05:48 07/20/17 05:50 Creatinine 0.49 MG/DL 0.54 MG/DL Estimat Glomerular Filtration Rate 135 ML/MIN 120 ML/MIN Vancomycin Level Trough 15.2 MCG/ML 18.4 MCG/ML (Norm Koroma) Medical Decision Making Impression and Plan Impression: 1. L5-S1 discitis with perivertebral inflammation-abscess. There is a very small probable epidural abscess component, without significant canal stenosis or nerve impingement. 2. Rheumatoid arthritis Patient doing well, continues with extremity weakness. Reviewed labs for today. Cultures continue to grow Staph aureus. Plan: Will follow while in the hospital. Mobilise patient w/assistance, no reaching or lifting though. Antibiotics per Infectious Disease. (Norm Koroma) Attending Statement The exam, history, and the medical decision-making described in the above note were completed with the assistance of the mid-level provider. I reviewed and agree with the findings presented. I attest that I had a [id number] encounter with the patient on the same day, and personally performed and documented my assessment and findings in the medical record. Stable neurologic exam Continuing IV antibiotics per infectious disease Plan follow-up MRI cervical and lumbar spine in the next one-2 days. (García New MD) Norm Koroma Jul 20, 2017 10:02 García New MD Jul 22, 2017 20:18
--- NOTE | 2017-07-20 10:42 | HHI.PR ---
Subjective Remarks Flexeril helps with muscle spasm. Otherwise denies fever or chills. Pain is fairly controlled by meds. No n/v/d/c. Appetite is good. Blood cultures persistent positive. Will repeat blood cx today Objective Vitals Vital Signs Date Time Temp Pulse Resp B/P (MAP) Pulse Ox O2 Delivery O2 Flow Rate FiO2 07/20/17 07:57 98.7 75 17 95/50 (65) 96 07/20/17 05:59 98.8 76 18 97/54 (68) 95 07/20/17 01:46 99.4 89 18 97/55 (69) 94 07/19/17 21:00 99.2 91 16 93/50 (64) 95 07/19/17 16:50 101/59 (73) 07/19/17 16:00 97.9 80 18 91/52 (65) 96 07/19/17 12:00 97.8 71 18 108/61 (77) 96 I/O 07/19/17 07/19/17 07/19/17 07/20/17 07/20/17 07/20/17 07:00 15:00 23:00 07:00 15:00 23:00 Intake Total 996 ml 250 ml Balance 996 ml 250 ml Intake Oral 480 ml IV Total 516 ml 250 ml # Voids 1 3 1 3 # Bowel Movements 0 Result Diagram: 07/17/17 0708 07/20/17 0550 Other Results Microbiology Date/Time Source Procedure Growth Status 07/16/17 10:41 Blood Peripheral Aerobic Blood Culture - Final Staphylococcus Aureus Resulted 07/16/17 10:41 Blood Peripheral Anaerobic Blood Culture - Preliminary NO GROWTH IN 3 DAYS Resulted 07/14/17 16:24 Abscess Back Gram Stain - Final Complete 07/14/17 16:24 Wound Culture - Final Staphylococcus Aureus Complete Imaging Last Impressions Thoracic Spine MRI 07/14/17 0000 Signed Impressions: Service Date/Time: Friday, July 14, 2017 17:15 - CONCLUSION: 1. See the MRI of the cervical spine and lumbar spine reported separately. 2. Scoliotic curvature. 3. No acute abnormality. Ruperto Pozo Jr., MD Needle Biopsy/Aspiration X-Ray 07/14/17 0000 Signed Impressions: Service Date/Time: Friday, July 14, 2017 15:40 - CONCLUSION: Uncomplicated FNA of the lumbosacral disc as above. Edvin Cabrera MD Lumbar Spine MRI 07/13/17 0000 Signed Impressions: Service Date/Time: Thursday, July 13, 2017 12:49 - CONCLUSION: 1. MR findings characteristic of L5-S1 discitis with perivertebral and epidural abscess. 2. Degenerative disc disease at L2-3 with loss of height, disc desiccation and a mild, diffuse disc bulge. 3. Despite the 2 abnormal levels, spinal canal and neural foramina are adequate throughout without nerve root compromise. 4. Results were called to Dr. Kothari at the time of this dictation Edvin Cabrera MD Cervical Spine MRI 07/13/17 0000 Signed Impressions: Service Date/Time: Thursday, July 13, 2017 12:49 - CONCLUSION: 1. Edema and abnormal enhancement in both the T1 and T2 vertebral bodies. These are on the edge of the image and therefore, incompletely characterized. Dedicated MRI of the thoracic spine with and without gadolinium is recommended for further characterization. Discitis in this region cannot be completely excluded. 2. Probable 1.6 cm hemangioma at T3. 3. Partially enhancing pannus surrounding the dens of C2 may be related to the patient's baseline rheumatoid arthritis. 4. Mild degenerative disc disease predominantly at C4-5 and C5-6 with minimal encroachment on the right neural foramina at C5-6. 5. Spinal canal is patent throughout.. Edvin Cabrera MD Objective Remarks GENERAL: This is a well-nourished, well-developed female patient, lying in bed with generalized pain. SKIN: The sacral/gluteal area there is some erythema and a tiny skin tear. CARDIOVASCULAR: Regular rate and rhythm without murmurs, gallops, or rubs. RESPIRATORY: Clear to auscultation. Breath sounds equal bilaterally. No wheezes , rales, or rhonchi. GASTROINTESTINAL: Abdomen soft, non-tender, nondistended. No guarding. MUSCULOSKELETAL: Extremities without clubbing, cyanosis, or edema. No joint tenderness, effusion, or edema noted. 5 out of 5 upper and lower extremity muscle strength. A/P Problem List: (1) Rheumatoid arthritis ICD Code: M06.9 - Rheumatoid arthritis, unspecified (2) Chronic neck and back pain ICD Code: M54.2 - Cervicalgia; M54.9 - Dorsalgia, unspecified (3) Weakness ICD Code: R53.1 - Weakness Assessment and Plan Mrs. Shine is a 47-year-old female patient with a known medical history of rheumatoid arthritis who presented to the ED with complaints of worsening neck and back pain and increasing weakness. Acute on chronic lower back pain with history of RA suspect secondary to discitis with perivertebral and epidural abscess Muscle spasm. Add flexeril for muscle spasm. - Lumbar and cervical spine reviewed showing L5-S1 discitis with perivertebral and epidural abscess. Neurosurgeon following. -Status post CT-guided biopsy done on 07/14 positive for staph aureus. - Blood cultures 07/13 4 out of 4 positive staph aureus. Repeat blood cultures on 07/14 4 out of 4 positive for staph aureus. Blood cultures from 07/16 persistent positive. Blood cultures persistent positive. Will repeat blood cx today 07/20/17. ID ff - Currently on vancomycin. Continue vancomycin. -Infectious disease consulted and following. Per infectious disease patient may need long-term IV antibiotics for 8 weeks.. - Continue home oral morphine and Dilaudid. Continue with gabapentin for neuropathic pain. Staph aureus bacteremia -Currently on vancomycin. -Patient does have a history of multiple epidural injections most likely this is the source. -Echo negative for any vegetation. See treatment as above. COPD without acute exacerbation: Supportive care. Hypothyroidism: Continue home Levothyroxine. Sacral wound -Stage II. Wound care nurse is managing. DVT prophylaxis with Lovenox. Discharge Planning Patient will need long-term IV antibiotics for 8 weeks. Blood cultures must be negative for at least 3 days before a PICC line can be placed. Blood cultures persistent positive. Will repeat blood cx today 07/20/17 Raina Griffin MD Jul 20, 2017 10:42
[2017-07-20] MEDS ORDERED: CYCLOBENZAPRINE HCL 10 MG TAB PO PRN (11:00)
--- NOTE | 2017-07-20 14:38 | HHI.IDPN ---
Note Infectious Disease Note Patient feels okay. Still having pain in the back. Neck pain is better. Afebrile. No chills. last blood culture is positive for staph aureus. PAST MEDICAL HISTORY 1. Rheumatoid arthritis. 2. Chronic low back pain. 3. COPD. 4. Anxiety disorder. 5. Thyroid disease. 6. Right inguinal hernia repair. ALLERGIES PENICILLIN. ANTIBIOTICS Vancomycin. SOCIAL HISTORY No tobacco use. Positive alcohol, occasional. Denies illicit drugs. FAMILY HISTORY Noncontributory. OBJECTIVE: Vital Signs Date Time Temp Pulse Resp B/P (MAP) Pulse Ox O2 Delivery O2 Flow Rate FiO2 07/20/17 11:47 98.1 87 18 92/54 (67) 95 07/20/17 07:57 98.7 75 17 95/50 (65) 96 07/20/17 05:59 98.8 76 18 97/54 (68) 95 07/20/17 01:46 99.4 89 18 97/55 (69) 94 07/19/17 21:00 99.2 91 16 93/50 (64) 95 07/19/17 16:50 101/59 (73) 07/19/17 16:00 97.9 80 18 91/52 (65) 96 Laboratory Tests Test 07/20/17 05:50 Creatinine 0.54 MG/DL Estimat Glomerular Filtration Rate 120 ML/MIN Microbiology Date/Time Source Procedure Growth Status 07/16/17 10:41 Blood Peripheral Aerobic Blood Culture - Preliminary NO GROWTH IN 1 DAY Resulted 07/16/17 10:41 Blood Peripheral Anaerobic Blood Culture - Preliminary NO GROWTH IN 1 DAY Resulted 07/16/17 10:35 Blood Peripheral Aerobic Blood Culture - Preliminary NO GROWTH IN 1 DAY Resulted 07/16/17 10:35 Blood Peripheral Anaerobic Blood Culture - Preliminary NO GROWTH IN 1 DAY Resulted 07/14/17 15:10 Blood Peripheral Aerobic Blood Culture - Final Staphylococcus Aureus Complete 07/14/17 15:10 Anaerobic Blood Culture - Final Staphylococcus Aureus Complete 07/14/17 15:05 Blood Peripheral Aerobic Blood Culture - Final Staphylococcus Aureus Complete 07/14/17 15:05 Anaerobic Blood Culture - Final Staphylococcus Aureus Complete 07/14/17 16:24 Abscess Back Gram Stain - Final Complete 07/14/17 16:24 Wound Culture - Final Staphylococcus Aureus Complete IMAGING: Thoracic Spine MRI 07/14/17 0000 Signed Impressions: Service Date/Time: Friday, July 14, 2017 17:15 - CONCLUSION: 1. See the MRI of the cervical spine and lumbar spine reported separately. 2. Scoliotic curvature. 3. No acute abnormality. Ruperto Pozo Jr., MD Needle Biopsy/Aspiration X-Ray 07/14/17 0000 Signed Impressions: Service Date/Time: Friday, July 14, 2017 15:40 - CONCLUSION: Uncomplicated FNA of the lumbosacral disc as above. Edvin Cabrera MD Lumbar Spine MRI 07/13/17 0000 Signed Impressions: Service Date/Time: Thursday, July 13, 2017 12:49 - CONCLUSION: 1. MR findings characteristic of L5-S1 discitis with perivertebral and epidural abscess. 2. Degenerative disc disease at L2-3 with loss of height, disc desiccation and a mild, diffuse disc bulge. 3. Despite the 2 abnormal levels, spinal canal and neural foramina are adequate throughout without nerve root compromise. 4. Results were called to Dr. Kothari at the time of this dictation Edvin Cabrera MD Cervical Spine MRI 07/13/17 0000 Signed Impressions: Service Date/Time: Thursday, July 13, 2017 12:49 - CONCLUSION: 1. Edema and abnormal enhancement in both the T1 and T2 vertebral bodies. These are on the edge of the image and therefore, incompletely characterized. Dedicated MRI of the thoracic spine with and without gadolinium is recommended for further characterization. Discitis in this region cannot be completely excluded. 2. Probable 1.6 cm hemangioma at T3. 3. Partially enhancing pannus surrounding the dens of C2 may be related to the patient's baseline rheumatoid arthritis. 4. Mild degenerative disc disease predominantly at C4-5 and C5-6 with minimal encroachment on the right neural foramina at C5-6. 5. Spinal canal is patent throughout.. Edvin Cabrera MD PHYSICAL EXAMINATION GENERAL: No acute distress. HEENT: The head is atraumatic. Extraocular movements grossly intact. Pupils reactive to light. No icterus. Oropharynx no visible lesions. NECK: supple. LUNGS: Clear to auscultation. Breath sounds decreased. HEART: Regular S1 and S2, without audible murmurs. ABDOMEN: Bowel sounds present. Soft. No tenderness. EXTREMITIES: No clubbing, cyanosis or edema. SKIN: No rash. NEUROLOGIC: No gross focal findings. IMPRESSION Discitis, paravertebral and small epidural abscess Lumbar spine. Staph aureus. Neurosurgery following. Bacteremia staph aureus. Last repeated blood culture still positive. RECOMMENDATIONS 1. Continue vancomycin. 2. Repeat blood culture today. 3. No PIC until negative blood culture x 3 day. The patient will need arrangement for 8 weeks of IV antibiotics for treatment of this infection. Jay Mohan MD Jul 20, 2017 14:38
[2017-07-20] MEDS: VANCOMYCIN INJ 1,250 MG in SODIUM CHLOR 0.9% 250 ML INJ 250 ML IV SCH (17:49)
[2017-07-20] MEDS: SODIUM CHLORIDE 0.9% FLUSH 10 ML FLUSH IV FLUSH SCH (20:50)
[2017-07-21] VITALS (7 sets, daily range): BP systolic 90–113; BP diastolic 54–61; PULSE 77–103; RESP 18; TEMP 98–99.6; O2SAT 93–97
[2017-07-21] MEDS: MORPHINE SULFATE 60 MG CONTROLLED RELEASE TAB PO SCH ×3 (02:07→17:25)
[2017-07-21] MEDS: VANCOMYCIN INJ 1,250 MG in SODIUM CHLOR 0.9% 250 ML INJ 250 ML IV SCH ×2 (05:39→18:00)
[2017-07-21] MEDS: LEVOTHYROXINE SODIUM 125 MCG TAB PO SCH (05:39)
[2017-07-21 08:02] LABS: AUTOMATED NEUTROPHIL # 5.2 TH/MM3 (1.8-7.7); BASOPHIL # 0.1 TH/MM3 (0-0.2); BASOPHIL % 0.6 % (0.0-2.0); EOSINOPHIL # 0.2 TH/MM3 (0-0.4); HEMATOCRIT 32.4 % (35.0-46.0); LYMPH % 30.9 % (9.0-44.0); LYMPHOCYTE # 2.8 TH/MM3 (1.0-4.8); MEAN CELL VOLUME 84.2 FL (80.0-100.0); MEAN CORPUSCULAR HGB CONC 33.2 % (32.0-36.0); MONO % 8.4 % (0.0-8.0); NEUT % 58.1 % (16.0-70.0); PLATELET COUNT 260 TH/MM3 (150-450); RED BLOOD COUNT 3.85 MIL/MM3 (4.00-5.30); RED CELL DISTRIBUTION WIDTH 14.3 % (11.6-17.2)
[2017-07-21 08:16] LABS: HEMO FLAGS AUTO DIFF
--- NOTE | 2017-07-21 08:22 | HHI.PR ---
Subjective Remarks In bed appears in no acute distress at this time. She complains of muscles bothersome in her neck, place improved with Flexeril. No nausea vomiting diarrhea or constipation. She is sitting well. Blood cultures are positive repeat blood cultures 07/20/17 are negative to date so far. Denies fever or chills at this time. She's been afebrile. Objective Vitals Vital Signs Date Time Temp Pulse Resp B/P (MAP) Pulse Ox O2 Delivery O2 Flow Rate FiO2 07/21/17 08:05 98.5 77 18 96/55 (69) 95 07/21/17 04:00 98.4 79 18 107/54 (71) 94 07/21/17 00:00 98.3 86 18 113/61 (78) 97 07/20/17 20:00 98.6 90 17 111/57 (75) 95 07/20/17 19:00 91 07/20/17 16:25 98.4 89 18 101/56 (71) 94 07/20/17 11:47 98.1 87 18 92/54 (67) 95 I/O 07/20/17 07/20/17 07/20/17 07/21/17 07/21/17 07/21/17 07:00 15:00 23:00 07:00 15:00 23:00 Intake Total 610 ml Balance 610 ml Intake Oral 360 ml IV Total 250 ml # Voids 3 3 5 # Bowel Movements 0 Result Diagram: 07/21/17 0545 07/20/17 0550 Imaging Last Impressions Thoracic Spine MRI 07/14/17 0000 Signed Impressions: Service Date/Time: Friday, July 14, 2017 17:15 - CONCLUSION: 1. See the MRI of the cervical spine and lumbar spine reported separately. 2. Scoliotic curvature. 3. No acute abnormality. Ruperto Pozo Jr., MD Needle Biopsy/Aspiration X-Ray 07/14/17 0000 Signed Impressions: Service Date/Time: Friday, July 14, 2017 15:40 - CONCLUSION: Uncomplicated FNA of the lumbosacral disc as above. Edvin Cabrera MD Lumbar Spine MRI 07/13/17 0000 Signed Impressions: Service Date/Time: Thursday, July 13, 2017 12:49 - CONCLUSION: 1. MR findings characteristic of L5-S1 discitis with perivertebral and epidural abscess. 2. Degenerative disc disease at L2-3 with loss of height, disc desiccation and a mild, diffuse disc bulge. 3. Despite the 2 abnormal levels, spinal canal and neural foramina are adequate throughout without nerve root compromise. 4. Results were called to Dr. Kothari at the time of this dictation Edvin Cabrera MD Cervical Spine MRI 07/13/17 0000 Signed Impressions: Service Date/Time: Thursday, July 13, 2017 12:49 - CONCLUSION: 1. Edema and abnormal enhancement in both the T1 and T2 vertebral bodies. These are on the edge of the image and therefore, incompletely characterized. Dedicated MRI of the thoracic spine with and without gadolinium is recommended for further characterization. Discitis in this region cannot be completely excluded. 2. Probable 1.6 cm hemangioma at T3. 3. Partially enhancing pannus surrounding the dens of C2 may be related to the patient's baseline rheumatoid arthritis. 4. Mild degenerative disc disease predominantly at C4-5 and C5-6 with minimal encroachment on the right neural foramina at C5-6. 5. Spinal canal is patent throughout.. Edvin Cabrera MD Objective Remarks GENERAL: This is a well-nourished, well-developed female patient, lying in bed with generalized pain. SKIN: The sacral/gluteal area there is some erythema and a tiny skin tear. CARDIOVASCULAR: Regular rate and rhythm without murmurs, gallops, or rubs. RESPIRATORY: Clear to auscultation. Breath sounds equal bilaterally. No wheezes , rales, or rhonchi. GASTROINTESTINAL: Abdomen soft, non-tender, nondistended. No guarding. MUSCULOSKELETAL: Extremities without clubbing, cyanosis, or edema. No joint tenderness, effusion, or edema noted. 5 out of 5 upper and lower extremity muscle strength. A/P Problem List: (1) Rheumatoid arthritis ICD Code: M06.9 - Rheumatoid arthritis, unspecified (2) Chronic neck and back pain ICD Code: M54.2 - Cervicalgia; M54.9 - Dorsalgia, unspecified (3) Weakness ICD Code: R53.1 - Weakness Assessment and Plan Mrs. Shine is a 47-year-old female patient with a known medical history of rheumatoid arthritis who presented to the ED with complaints of worsening neck and back pain and increasing weakness. Acute on chronic lower back pain with history of RA suspect secondary to discitis with perivertebral and epidural abscess Muscle spasm. Add flexeril for muscle spasm. - Lumbar and cervical spine reviewed showing L5-S1 discitis with perivertebral and epidural abscess. Neurosurgeon following. -Status post CT-guided biopsy done on 07/14 positive for staph aureus. - Blood cultures 07/13 4 out of 4 positive staph aureus. Repeat blood cultures on 07/14 4 out of 4 positive for staph aureus. Blood cultures from 07/16 persistent positive. Blood cultures persistent positive. Repeat blood cx follow cultures results. ID ff - Currently on vancomycin. Continue vancomycin. -Infectious disease consulted and following. Per infectious disease patient may need long-term IV antibiotics for 8 weeks.. - Continue home oral morphine and Dilaudid. Continue with gabapentin for neuropathic pain. Staph aureus bacteremia -Currently on vancomycin. -Patient does have a history of multiple epidural injections most likely this is the source. -Echo negative for any vegetation. See treatment as above. COPD without acute exacerbation: Supportive care. Hypothyroidism: Continue home Levothyroxine. Sacral wound -Stage II. Wound care nurse is managing. DVT prophylaxis with Lovenox. Discharge Planning Patient will need long-term IV antibiotics for 8 weeks. Blood cultures must be negative for at least 3 days before a PICC line can be placed. Blood cultures persistent positive. Repeat blood cx 07/20/17 NTD monitor Raina Griffin MD Jul 21, 2017 08:22
[2017-07-21] MEDS: GABAPENTIN 100 MG CAP PO SCH ×3 (08:59→17:26)
[2017-07-21] MEDS: FOLIC ACID 1 MG TAB PO SCH (08:59)
[2017-07-21] MEDS: LACTOBACILLUS ACIDOPHILUS TAB PO SCH ×3 (08:59→17:26)
[2017-07-21] MEDS: SODIUM CHLORIDE 0.9% FLUSH 10 ML FLUSH IV FLUSH SCH ×2 (09:00→20:36)
[2017-07-21 09:07] LABS: BICARBONATE 28.5 MEQ/L (21.0-32.0); POTASSIUM 3.8 MEQ/L (3.5-5.1)
--- NOTE | 2017-07-21 09:28 | HHI.NSPN ---
(Norm Koroma) History Chief Complaint: Neck and back pain (Norm Koroma) Interval History 07/14: Ms. Shine is a 47-year-old lady who presented to [facility] Emergency room last evening with complaint of neck and back pain for approximately 2 months. She has had previous episodes of spinal pain. She recently presented in May 2017 to the emergency room with several days of severe low back pain which had been evaluated at [facility] emergency room prior to presenting to [place] emergency room on May 23, 2017. She reportedly had an MRI of the lumbar spine done at [facility] emergency room which she indicated was negative for any acute findings. A CT scan at [place] emergency room revealed degenerative changes. It was noted that she had leukocytosis, which was felt to likely be related to steroids. The patient requested discharge home on 05/24/17 to follow up with her pain management physician. She has gone to a chiropractor recently with increase in the pain symptoms during the treatment. She does have a history of rheumatoid arthritis and is on prednisone and methotrexate. 07/15: When seen this afternoon the patient states that she is doing better than yesterday. She does have pain to the neck and the lower back. She also has numbness to the toes. Her arms and legs feel weak. She went for an aspiration of the L5-S1 disc yesterday as well as an MRI of the thoracic spine. 07/20: This morning the patient is doing all right. She does continue to have pain to the neck and back with weakness to the extremities. 07/21: When seen the patient is awake and alert. She states that she has neck pain but her back is a little better. She still has weakness to the extremities. (Norm Koroma) System Review Comments MUSCULOSKELETAL: Neck pain still bad, back pain is a little better. NEUROLOGICAL: Weakness to the arms and legs. Denies any numbness or tingling. The remainder of the ROS is negative. (Norm Koroma) Exam Results 11/12/17 1107/20/17 07/20/17 07/21/17 07/21/17 06:00 18:00 06:00 18:00 06:00 18:00 Intake Total 996 ml 610 ml Balance 996 ml 610 ml Intake Oral 480 ml 360 ml IV Total 516 ml 250 ml # Voids 1 3 2 5 5 # Bowel Movements 0 0 Vital Signs Date Time Temp Pulse Resp B/P (MAP) Pulse Ox O2 Delivery O2 Flow Rate FiO2 07/21/17 08:05 98.5 77 18 96/55 (69) 95 07/21/17 04:00 98.4 79 18 107/54 (71) 94 07/21/17 00:00 98.3 86 18 113/61 (78) 97 07/20/17 20:00 98.6 90 17 111/57 (75) 95 07/20/17 19:00 91 07/20/17 16:25 98.4 89 18 101/56 (71) 94 07/20/17 11:47 98.1 87 18 92/54 (67) 95 07/20/17 07:57 98.7 75 17 95/50 (65) 96 07/20/17 05:59 98.8 76 18 97/54 (68) 95 07/20/17 01:46 99.4 89 18 97/55 (69) 94 07/19/17 21:00 99.2 91 16 93/50 (64) 95 07/19/17 16:50 101/59 (73) 07/19/17 16:00 97.9 80 18 91/52 (65) 96 07/19/17 12:00 97.8 71 18 108/61 (77) 96 07/19/17 08:03 78 07/19/17 08:00 97.7 75 18 106/58 (74) 97 07/19/17 05:26 98.5 79 19 98/55 (69) 96 07/19/17 00:55 98.7 83 19 93/55 (68) 96 07/18/17 22:03 99.6 95 18 105/51 (69) 95 07/18/17 20:11 99 07/18/17 16:00 98.0 82 18 128/61 (83) 97 07/18/17 12:00 97.5 77 19 115/65 (82) 96 (Norm Koroma) Physical Examination GENERAL: Awake & alert, readily interacts, affect slightly flat, no apparent distress. NECK: Midline cervical spine TTP, no JVD, trachea midline. SKIN: Intact dressing to right buttock. Intact dressing to left lateral lumbar biopsy insertion site, no drainage, erythema or streaking. MUSCULOSKELETAL: SETH. TTP at the cervicothoracic & lumbosacral junction. TTP at the right anterior shoulder joint. NEUROLOGICAL: AAOx3. Speech clear & appropriate. Follows simple commands w/o difficulty. Sensation intact to light touch to all extremities except for toes which is decreased. Motor strength is mostly 4/5 to the right upper extremity except the right deltoid is 3/5 due to pain and the left upper extremity is 4+/5. Hand intrinsics & extrinsics not tested. Motor strength is 4+/5 to the lower extremities. (Norm Koroma) Lab, Micro, Other Results Laboratory Tests Test 07/20/17 05:50 07/21/17 05:45 Creatinine 0.54 MG/DL Estimat Glomerular Filtration Rate 120 ML/MIN Vancomycin Level Trough 18.4 MCG/ML White Blood Count 9.0 TH/MM3 Red Blood Count 3.85 MIL/MM3 Hemoglobin 10.8 GM/DL Hematocrit 32.4 % Mean Corpuscular Volume 84.2 FL Mean Corpuscular Hemoglobin 28.0 PG Mean Corpuscular Hemoglobin Concent 33.2 % Red Cell Distribution Width 14.3 % Platelet Count 260 TH/MM3 Mean Platelet Volume 8.0 FL Neutrophils (%) (Auto) 58.1 % Lymphocytes (%) (Auto) 30.9 % Monocytes (%) (Auto) 8.4 % Eosinophils (%) (Auto) 2.0 % Basophils (%) (Auto) 0.6 % Neutrophils # (Auto) 5.2 TH/MM3 Lymphocytes # (Auto) 2.8 TH/MM3 Monocytes # (Auto) 0.7 TH/MM3 Eosinophils # (Auto) 0.2 TH/MM3 Basophils # (Auto) 0.1 TH/MM3 CBC Comment AUTO DIFF (Norm Koroma) Medical Decision Making Impression and Plan Impression: 1. L5-S1 discitis with perivertebral inflammation-abscess. There is a very small probable epidural abscess component, without significant canal stenosis or nerve impingement. 2. Rheumatoid arthritis Patient doing well, persistent neck pain, back doing better, continues with extremity weakness. Reviewed labs for today. Blood cultures from with Staph aureus. New blood cultures done to see if patient able to have a PICC line placed. Plan: Will follow intermittently while in the hospital. Mobilise patient w/assistance, no reaching or lifting though. Antibiotics per Infectious Disease. Will obtain x-rays on . (Norm Koroma) Attending Statement The exam, history, and the medical decision-making described in the above note were completed with the assistance of the mid-level provider. I reviewed and agree with the findings presented. I attest that I had a [id number] encounter with the patient on the same day, and personally performed and documented my assessment and findings in the medical record. No change in neurologic exam or symptoms. No focal lower extremity neurologic deficit Follow-up MRI cervical and lumbar spine 07/21/17 images reviewed by the undersigned. No evidence of significant abscess formation or progression of osteomyelitis. Continue to mobilize out of bed as tolerated Infectious disease following May be discharged with outpatient follow-up from neurosurgical standpoint (García New MD) Nomr Koroma Jul 21, 2017 09:28 García New MD Jul 22, 2017 20:18
[2017-07-21 09:36] LABS: BANDS 14 % (0-6); EOSINOPHILS 3 % (0-4); METAMYELOCYTES 1 % (0-1); NEUTROPHIL # MANUAL DIFF 6.4 TH/MM3 (1.8-7.7); PLATELET ESTIMATE SMEAR NORMAL (NORMAL); PLATELET MORPHOLOGY NORMAL (NORMAL); POLYS (SEG NEUTROPHILS) 56 % (16-70); SCAN/DIFF FINAL DIFF MANUAL; WBC DIFF SAMPLE 100
[2017-07-21] MEDS: HYDROmorphone HCL 4 MG TAB PO PRN ×2 (09:57→23:46)
[2017-07-21] MEDS: HYDROmorphone HCL PF 1 MG/ML VIAL IV PUSH PRN ×2 (13:38→20:36)
[2017-07-21] MEDS ORDERED: GADODIAMIDE PF 287 MG/ML 5 ML VIAL (for RAD MRI) IV PUSH ONE (18:36)
--- NOTE | 2017-07-21 19:14 | RADRPT ---
EXAM DATE/TIME: 07/21/2017 17:35 [facility] COMPARISON: MRI LUMBAR SPINE W & W/O CONTRAST, July 13, 2017, 12:49. DISC ASPIRATION /BIOPSY, July 14, 2017, 15:40. MRI THORACIC SPINE W & W/O CONTRAST, July 14, 2017, 17:15. P OC ULTRASOUND VASCULAR ACCESS TEAM, July 17, 2017, 13:01. MRI CERVICAL SPINE W & W/O CONTRAST, N ovember 2016, 12:49. INDICATIONS : Radiculopathy. CONTRAST: 9 cc Omniscan (gadodiamide) IV MEDICAL HISTORY : Rheumatoid arthritis. SURGICAL HISTORY : Lumbar epidural aspiration. ENCOUNTER: Subsequent ACUITY: 1 week PAIN SCORE: 5/10 LOCATION: Neck TECHNIQUE: Multiplanar, multisequence MRI examination of the cervical spine was performed. FINDINGS: VERTEBRAE: There is abnormal signal in the paraspinous soft tissues in this region. This will be more fully described in the MRI of the thoracic spine. The cervical vertebral bodies are normal in height. There is prominent increased signal and enhancement seen around the C1-C2 articulation. The se changes appear somewhat less prominent on the current exam when compared to the prior exam. There is increased signal seen in the T1 and T2 vertebral bodies. There is some mild heterogeneity in the T3 vertebral body. There does appear to be decreased disc space height at the T1-T2 level. There i s increased signal seen around the T1 and T2 vertebral bodies. This area all enhances. This is malik rning for discitis at the T1-T2 level. The T2-T3 disc appears normal. The heterogeneity at the T3 v ertebral body may be secondary to a hemangioma at the posterior left lateral aspect of the T3 vertebr al body. ALIGNMENT: No evidence of subluxation. CORD: Normal configuration and signal. POST FOSSA: The cerebellar tonsils are normal in position. POST-CONTRAST: No abnormal areas of enhancement are seen. C2-C3: The thecal sac has a normal configuration. There is no evidence of disc herniation or spinal canal stenosis. The neural foramina are patent bilaterally. There is right facet hypertrophy. C3-C4: The thecal sac has a normal configuration. There is no evidence of disc herniation or spinal canal stenosis. The neural foramina are patent bilaterally. C4-C5: There is mild diffuse disc bulge. There continues to be CSF around the cord. The neural fora maryam are normal. C5-C6: There is mild diffuse disc bulge. There continues to be CSF around the cord. The neural frances yadiel are normal. C6-C7: Disc demonstrates mild decreased height. There is minimal bulging without significant spinal stenosis and the neural foramina are normal. C7-T1: The thecal sac has a normal configuration. There is no evidence of disc herniation or spinal canal stenosis. The neural foramina are patent bilaterally. T1-T2: Again noted is the abnormal signal at the disc. There is increased signal and enhancement see n in the anterior epidural space posterior to the T1 vertebral body. This causes a mild impression o n the anterior aspect of the thecal sac. There continues to be CSF around the cord. CONCLUSION: 1. Suspected osteomyelitis and discitis at the T1-T2 level. 2. Prominent increased signal and enhancement around the C1-C2 articulation and dens. This appears l ess prominent than it did on the prior exam. This could be secondary to hypertrophic change/inflamma tory change. Apparently the patient has a history of rheumatoid. Infection cannot absolutely be rul ed out but again these changes appear less prominent on the current exam than on than they did on the prior exam. 3. Suspected inflammatory change/infection at the T1-T2 level which will be more fully described in t he thoracic spine MRI examination. 4. Mild disc bulges at the C3-C5 through C6-C7 levels without significant spinal stenosis. 5. Suspected hemangioma at the T3 level. Bipin Estrella MD on July 21, 2017 at 18:43 Board Certified Radiologist. This report was verified electronically.
--- NOTE | 2017-07-21 19:27 | RADRPT ---
EXAM DATE/TIME: 07/21/2017 17:35 [facility] COMPARISON: MRI LUMBAR SPINE W & W/O CONTRAST, July 13, 2017, 12:49. INDICATIONS : Abscess. CONTRAST: 9 cc Omniscan (gadodiamide) IV MEDICAL HISTORY : Rheumatoid arthritis. SURGICAL HISTORY : Lumbar epidural aspiration. ENCOUNTER: Subsequent ACUITY: 1 week PAIN SCORE: 5/10 LOCATION: Lower back. TECHNIQUE: Multiplanar multisequence MRI of the lumbar spine was performed with and without contr ast. FINDINGS: The most caudal appearing lumbar vertebra is numbered as L5. VERTEBRAE: There is abnormal signal seen at the L5 and S1 levels. This area enhances. There is abnormal enhancement and signal throughout the L5-S1 disc level. There is prominent prevertebral sof t-tissue swelling and enhancement. There is an area of low signal seen on the T1 weighted images in the prevertebral soft tissues at the L5-S1 level measuring 1.4 cm in height, 0.7 cm in AP dimension e xtending over a 3.6 cm transverse dimension. This may be portions of an extruded disc. Some degree of abscess cannot absolutely be excluded. The remaining lumbar vertebral bodies are normal in height and demonstrate normal signal. There is a hemangioma identified at the L1 vertebral body. CONUS: Normal level and configuration. T12-L1: The thecal sac has a normal diameter. No evidence of disc bulge or protrusion. The neural foramina are patent bilaterally. L1-L2: The thecal sac has a normal diameter. No evidence of disc bulge or protrusion. The neural f oramina are patent bilaterally. L2-L3: Disc demonstrates decreased height. There is minimal bulging without significant spinal sten osis. The neural foramina are normal. L3-L4: The thecal sac has a normal diameter. No evidence of disc bulge or protrusion. The neural f oramina are patent bilaterally. L4-L5: The thecal sac has a normal diameter. No evidence of disc bulge or protrusion. The neural f oramina are patent bilaterally. L5-S1: Again noted is a very prominent suspected inflammatory change at the L5-S1 disc level and the L4 vertebral body and upper sacrum. The patient previously had an aspiration of this region. There i s enhancement at the anterior epidural space. There is low signal at the posterior disc margin exten ding into the anterior epidural space likely representing a disc protrusion. This causes a mild impr ession on the anterior aspect of the thecal sac. There continues to be CSF around the nerve roots. The enhancement and inflammatory change do extend into the neural foramina bilaterally causing mild n arrowing of the neural foramina. The L5 nerve roots appear to primarily escape superior to these murry ges. When compared to the prior exam little change has occurred. CONCLUSION: 1. Suspected discitis at the L5-S1 level with abnormal signal at the L5 vertebral body and upper sacr um likely related to osteomyelitis. There is prominent enhancement in the soft tissues surrounding t he L5-S1 level including the prevertebral soft tissues and the anterior epidural space. These change s were present previously. 2. Loss of disc space height and mild bulging at the L2-L3 level without significant stenosis. Bipin Estrella MD on July 21, 2017 at 18:57 Board Certified Radiologist. This report was verified electronically.
[2017-07-22] VITALS (9 sets, daily range): BP systolic 86–104; BP diastolic 52–58; PULSE 81–98; RESP 16–18; TEMP 97.4–99.9; O2SAT 92–97
[2017-07-22] MEDS: MORPHINE SULFATE 60 MG CONTROLLED RELEASE TAB PO SCH ×3 (02:03→18:27)
[2017-07-22] MEDS ORDERED: PHARMACY ORDERED LAB ONE (05:45)
[2017-07-22] MEDS: HYDROmorphone HCL PF 1 MG/ML VIAL IV PUSH PRN ×3 (05:52→16:26)
[2017-07-22] MEDS: LEVOTHYROXINE SODIUM 125 MCG TAB PO SCH (05:52)
[2017-07-22] MEDS: VANCOMYCIN INJ 1,250 MG in SODIUM CHLOR 0.9% 250 ML INJ 250 ML IV SCH (06:20)
[2017-07-22] MEDS: SODIUM CHLORIDE 0.9% FLUSH 10 ML FLUSH IV FLUSH SCH ×2 (09:00→21:37)
[2017-07-22] MEDS: FOLIC ACID 1 MG TAB PO SCH (09:02)
[2017-07-22] MEDS: GABAPENTIN 100 MG CAP PO SCH ×3 (09:02→17:59)
[2017-07-22] MEDS: LACTOBACILLUS ACIDOPHILUS TAB PO SCH ×3 (09:05→17:59)
--- NOTE | 2017-07-22 12:05 | HHI.PR ---
Subjective Remarks With persistent bacteremia. Discussed with ID specialist Dr Mohan and also with Dr Holley. Patient is a candidate for penicillin desensitization. l Will transfer patient to ICU and consult plywood matcher,. Patient in the chair, appears sleepy. Says she has neck pain/spasm. No fever or chills overnight. No n/v/d/c. Objective Vitals Vital Signs Date Time Temp Pulse Resp B/P (MAP) Pulse Ox O2 Delivery O2 Flow Rate FiO2 07/22/17 09:50 86 07/22/17 07:53 99.2 87 17 98/53 (68) 95 07/22/17 04:00 99.1 92 18 103/54 (70) 94 07/22/17 00:00 99.9 98 18 104/57 (73) 94 07/21/17 20:00 99.6 103 18 106/58 (74) 96 07/21/17 16:32 98.0 95 18 90/56 (67) 93 I/O 07/21/17 07/21/17 07/21/17 07/22/17 07/22/17 07/22/17 07:00 15:00 23:00 07:00 15:00 23:00 Intake Total 360 ml 262.5 ml Balance 360 ml 262.5 ml Intake Oral 360 ml IV Total 262.5 ml # Voids 5 4 # Bowel Movements 0 Result Diagram: 07/21/17 0545 07/22/17 0600 Imaging Last Impressions Lumbar Spine MRI 07/21/17 0000 Signed Impressions: Service Date/Time: Friday, July 21, 2017 17:35 - CONCLUSION: 1. Suspected discitis at the L5-S1 level with abnormal signal at the L5 vertebral body and upper sacrum likely related to osteomyelitis. There is prominent enhancement in the soft tissues surrounding the L5-S1 level including the prevertebral soft tissues and the anterior epidural space. These changes were present previously. 2. Loss of disc space height and mild bulging at the L2-L3 level without significant stenosis. Bipin Estrella MD Cervical Spine MRI 07/21/17 0000 Signed Impressions: Service Date/Time: Friday, July 21, 2017 17:35 - CONCLUSION: 1. Suspected osteomyelitis and discitis at the T1-T2 level. 2. Prominent increased signal and enhancement around the C1-C2 articulation and dens. This appears less prominent than it did on the prior exam. This could be secondary to hypertrophic change/inflammatory change. Apparently the patient has a history of rheumatoid. Infection cannot absolutely be ruled out but again these changes appear less prominent on the current exam than on than they did on the prior exam. 3. Suspected inflammatory change/infection at the T1-T2 level which will be more fully described in the thoracic spine MRI examination. 4. Mild disc bulges at the C3-C5 through C6-C7 levels without significant spinal stenosis. 5. Suspected hemangioma at the T3 level. Bipin Estrella MD Thoracic Spine MRI 07/14/17 0000 Signed Impressions: Service Date/Time: Friday, July 14, 2017 17:15 - CONCLUSION: 1. See the MRI of the cervical spine and lumbar spine reported separately. 2. Scoliotic curvature. 3. No acute abnormality. Ruperto Pozo Jr., MD Needle Biopsy/Aspiration X-Ray 07/14/17 0000 Signed Impressions: Service Date/Time: Friday, July 14, 2017 15:40 - CONCLUSION: Uncomplicated FNA of the lumbosacral disc as above. Edvin Cabrera MD Objective Remarks GENERAL: This is a well-nourished, well-developed female patient, lying in bed with generalized pain. SKIN: The sacral/gluteal area there is some erythema and a tiny skin tear. CARDIOVASCULAR: Regular rate and rhythm without murmurs, gallops, or rubs. RESPIRATORY: Clear to auscultation. Breath sounds equal bilaterally. No wheezes , rales, or rhonchi. GASTROINTESTINAL: Abdomen soft, non-tender, nondistended. No guarding. MUSCULOSKELETAL: Extremities without clubbing, cyanosis, or edema. No joint tenderness, effusion, or edema noted. 5 out of 5 upper and lower extremity muscle strength. A/P Problem List: (1) Rheumatoid arthritis ICD Code: M06.9 - Rheumatoid arthritis, unspecified (2) Chronic neck and back pain ICD Code: M54.2 - Cervicalgia; M54.9 - Dorsalgia, unspecified (3) Weakness ICD Code: R53.1 - Weakness Assessment and Plan Mrs. Shine is a 47-year-old female patient with a known medical history of rheumatoid arthritis who presented to the ED with complaints of worsening neck and back pain and increasing weakness. Acute on chronic lower back pain with history of RA suspect secondary to discitis with perivertebral and epidural abscess Muscle spasm. Add flexeril for muscle spasm. - Lumbar and cervical spine reviewed showing L5-S1 discitis with perivertebral and epidural abscess. Neurosurgeon following. -Status post CT-guided biopsy done on 07/14 positive for staph aureus. - Blood cultures 07/13 4 out of 4 positive staph aureus. Repeat blood cultures on 07/14 4 out of 4 positive for staph aureus. Blood cultures from 07/16 persistent positive. Blood cultures persistent positive. Repeat blood cx follow cultures results. ID ff - Currently on vancomycin. Continue vancomycin. -Infectious disease consulted and following. Per infectious disease patient may need long-term IV antibiotics for 8 weeks.. - Continue home oral morphine and Dilaudid. Continue with gabapentin for neuropathic pain. - With persistent bacteremia. Discussed with ID specialist Dr Mohan and also with Dr Holley. Patient is a candidate for penicillin desensitization. l Will transfer patient to ICU and consult plywood matcher. Staph aureus bacteremia -Currently on vancomycin. -Patient does have a history of multiple epidural injections most likely this is the source. -Echo negative for any vegetation. See treatment as above. COPD without acute exacerbation: Supportive care. Hypothyroidism: Continue home Levothyroxine. Sacral wound -Stage II. Wound care nurse is managing. DVT prophylaxis with Lovenox. Discharge Planning Patient will need long-term IV antibiotics for 8 weeks. Blood cultures must be negative for at least 3 days before a PICC line can be placed. Blood cultures persistent positive. Repeat blood cx 07/20/17 NTD monitor With persistent bacteremia. Discussed with ID specialist Dr Mohan and also with Dr Holley. Patient is a candidate for penicillin desensitization. l Will transfer patient to ICU and consult plywood matcher,. Discussed with the patient,nurse, Dr Mohan, Dr Holley. Raina Griffin MD Jul 22, 2017 12:05
[2017-07-22] MEDS: HYDROmorphone HCL 4 MG TAB PO PRN (12:14)
--- NOTE | 2017-07-22 12:38 | HHI.IDPN ---
Note Infectious Disease Note Patient feels okay. Still having pain in the back. Also notes severe pain in the neck. Afebrile. No chills. One of four blood culture has gram positive cocci on last blood culture. PAST MEDICAL HISTORY 1. Rheumatoid arthritis. 2. Chronic low back pain. 3. COPD. 4. Anxiety disorder. 5. Thyroid disease. 6. Right inguinal hernia repair. ALLERGIES PENICILLIN. ANTIBIOTICS Vancomycin. SOCIAL HISTORY No tobacco use. Positive alcohol, occasional. Denies illicit drugs. FAMILY HISTORY Noncontributory. OBJECTIVE: Vital Signs Date Time Temp Pulse Resp B/P (MAP) Pulse Ox O2 Delivery O2 Flow Rate FiO2 07/22/17 12:06 98.8 93 18 94/58 (70) 93 07/22/17 09:50 86 07/22/17 07:53 99.2 87 17 98/53 (68) 95 07/22/17 04:00 99.1 92 18 103/54 (70) 94 07/22/17 00:00 99.9 98 18 104/57 (73) 94 07/21/17 20:00 99.6 103 18 106/58 (74) 96 07/21/17 16:32 98.0 95 18 90/56 (67) 93 Laboratory Tests Test 07/21/17 05:45 White Blood Count 9.0 TH/MM3 Red Blood Count 3.85 MIL/MM3 Hemoglobin 10.8 GM/DL Hematocrit 32.4 % Mean Corpuscular Volume 84.2 FL Mean Corpuscular Hemoglobin 28.0 PG Mean Corpuscular Hemoglobin Concent 33.2 % Red Cell Distribution Width 14.3 % Platelet Count 260 TH/MM3 Mean Platelet Volume 8.0 FL Neutrophils (%) (Auto) 58.1 % Lymphocytes (%) (Auto) 30.9 % Monocytes (%) (Auto) 8.4 % Eosinophils (%) (Auto) 2.0 % Basophils (%) (Auto) 0.6 % Neutrophils # (Auto) 5.2 TH/MM3 Lymphocytes # (Auto) 2.8 TH/MM3 Monocytes # (Auto) 0.7 TH/MM3 Eosinophils # (Auto) 0.2 TH/MM3 Basophils # (Auto) 0.1 TH/MM3 CBC Comment AUTO DIFF Differential Total Cells Counted 100 Neutrophils % (Manual) 56 % Band Neutrophils % 14 % Lymphocytes % 19 % Monocytes % 7 % Eosinophils % 3 % Neutrophils # (Manual) 6.4 TH/MM3 Metamyelocytes 1 % Differential Comment FINAL DIFF MANUAL Platelet Estimate NORMAL Platelet Morphology Comment NORMAL Red Cell Morphology Comment NORMAL Laboratory Tests Test 07/21/17 05:45 07/22/17 06:00 Blood Urea Nitrogen 4 MG/DL Creatinine 0.50 MG/DL 0.59 MG/DL Random Glucose 101 MG/DL Calcium Level 9.4 MG/DL Sodium Level 134 MEQ/L Potassium Level 3.8 MEQ/L Chloride Level 96 MEQ/L Carbon Dioxide Level 28.5 MEQ/L Anion Gap 10 MEQ/L Estimat Glomerular Filtration Rate 132 ML/MIN 109 ML/MIN Microbiology Date/Time Source Procedure Growth Status 07/20/17 15:47 Blood Peripheral Aerobic Blood Culture - Preliminary Gram Positive Cocci Resulted 07/20/17 15:47 Blood Peripheral Anaerobic Blood Culture - Preliminary NO GROWTH IN 2 DAYS Resulted 07/20/17 15:40 Blood Peripheral Aerobic Blood Culture - Preliminary NO GROWTH IN 2 DAYS Resulted 07/20/17 15:40 Blood Peripheral Anaerobic Blood Culture - Preliminary NO GROWTH IN 2 DAYS Resulted Microbiology Date/Time Source Procedure Growth Status 07/16/17 10:41 Blood Peripheral Aerobic Blood Culture - Preliminary NO GROWTH IN 1 DAY Resulted 07/16/17 10:41 Blood Peripheral Anaerobic Blood Culture - Preliminary NO GROWTH IN 1 DAY Resulted 07/16/17 10:35 Blood Peripheral Aerobic Blood Culture - Preliminary NO GROWTH IN 1 DAY Resulted 07/16/17 10:35 Blood Peripheral Anaerobic Blood Culture - Preliminary NO GROWTH IN 1 DAY Resulted 07/14/17 15:10 Blood Peripheral Aerobic Blood Culture - Final Staphylococcus Aureus Complete 07/14/17 15:10 Anaerobic Blood Culture - Final Staphylococcus Aureus Complete 07/14/17 15:05 Blood Peripheral Aerobic Blood Culture - Final Staphylococcus Aureus Complete 07/14/17 15:05 Anaerobic Blood Culture - Final Staphylococcus Aureus Complete 07/14/17 16:24 Abscess Back Gram Stain - Final Complete 07/14/17 16:24 Wound Culture - Final Staphylococcus Aureus Complete IMAGING: Lumbar Spine MRI 07/21/17 0000 Signed Impressions: Service Date/Time: Friday, July 21, 2017 17:35 - CONCLUSION: 1. Suspected discitis at the L5-S1 level with abnormal signal at the L5 vertebral body and upper sacrum likely related to osteomyelitis. There is prominent enhancement in the soft tissues surrounding the L5-S1 level including the prevertebral soft tissues and the anterior epidural space. These changes were present previously. 2. Loss of disc space height and mild bulging at the L2-L3 level without significant stenosis. Bipin Estrella MD Cervical Spine MRI 07/21/17 Signed Impressions: Service Date/Time: Friday, July 21, 2017 17:35 - CONCLUSION: 1. Suspected osteomyelitis and discitis at the T1-T2 level. 2. Prominent increased signal and enhancement around the C1-C2 articulation and dens. This appears less prominent than it did on the prior exam. This could be secondary to hypertrophic change/inflammatory change. Apparently the patient has a history of rheumatoid. Infection cannot absolutely be ruled out but again these changes appear less prominent on the current exam than on than they did on the prior exam. 3. Suspected inflammatory change/infection at the T1-T2 level which will be more fully described in the thoracic spine MRI examination. 4. Mild disc bulges at the C3-C5 through C6-C7 levels without significant spinal stenosis. 5. Suspected hemangioma at the T3 level. Bipin Estrella MD Thoracic Spine MRI 07/14/17 Signed Impressions: Service Date/Time: Friday, July 14, 2017 17:15 - CONCLUSION: 1. See the MRI of the cervical spine and lumbar spine reported separately. 2. Scoliotic curvature. 3. No acute abnormality. Ruperto Pozo Jr., MD Needle Biopsy/Aspiration X-Ray 07/14/17 Signed Impressions: Service Date/Time: Friday, July 14, 2017 15:40 - CONCLUSION: Uncomplicated FNA of the lumbosacral disc as above. Edvin Cabrera MD Lumbar Spine MRI 07/13/17 Signed Impressions: Service Date/Time: Thursday, July 13, 2017 12:49 - CONCLUSION: 1. MR findings characteristic of L5-S1 discitis with perivertebral and epidural abscess. 2. Degenerative disc disease at L2-3 with loss of height, disc desiccation and a mild, diffuse disc bulge. 3. Despite the 2 abnormal levels, spinal canal and neural foramina are adequate throughout without nerve root compromise. 4. Results were called to Dr. Kothari at the time of this dictation Edvin Cabrera MD Cervical Spine MRI 07/13/17 Signed Impressions: Service Date/Time: Thursday, July 13, 2017 12:49 - CONCLUSION: 1. Edema and abnormal enhancement in both the T1 and T2 vertebral bodies. These are on the edge of the image and therefore, incompletely characterized. Dedicated MRI of the thoracic spine with and without gadolinium is recommended for further characterization. Discitis in this region cannot be completely excluded. 2. Probable 1.6 cm hemangioma at T3. 3. Partially enhancing pannus surrounding the dens of C2 may be related to the patient's baseline rheumatoid arthritis. 4. Mild degenerative disc disease predominantly at C4-5 and C5-6 with minimal encroachment on the right neural foramina at C5-6. 5. Spinal canal is patent throughout.. Edvin Cabrera MD PHYSICAL EXAMINATION GENERAL: No acute distress. HEENT: Extraocular movements grossly intact. Pupils reactive to light. No icterus. Oropharynx no visible lesions. NECK: supple. LUNGS: Clear to auscultation. HEART: Regular S1 and S2, without audible murmurs. ABDOMEN: Bowel sounds present. Soft. No tenderness. EXTREMITIES: No clubbing, cyanosis or edema. SKIN: No rash. NEUROLOGIC: No gross focal findings. PSYCH: Calm and cooperative. IMPRESSION Discitis, paravertebral and small epidural abscess Lumbar spine L5-S1. Staph aureus. Neurosurgery following. Suspected osteomyelitis at T1-2. Bacteremia staph aureus. Last blood culture has gram positive cocci. RECOMMENDATIONS 1. Desensitization to Ancef and treatment with Ancef. Superior to Vancomycin. Patient to be transferred to [facility] for desentization. Protocol on chart. 2. Follow repeat blood culture. 3. No PIC until negative blood culture x 3 day. 4. Monitor clinical response. The patient will need arrangement for 8 weeks of IV antibiotics for treatment of this infection. Jay Mohan MD Jul 22, 2017 12:38
[2017-07-22] MEDS ORDERED: RESP: ALBUTEROL 2.5 MG/IPRATROPIUM 0.5 MG NEB (PRN) NEB (15:30)
[2017-07-22] MEDS ORDERED: GLUCAGON 1 MG/ML VIAL OTHER PRN (15:30)
[2017-07-22] MEDS ORDERED: DIPHENHYDRAMINE HCL 50 MG/ML VIAL Reaction Med IV PUSH PRN (15:30)
[2017-07-22] MEDS ORDERED: DEXTROSE 50% IN WATER 50 ML VIAL(D50) IV PUSH PRN (15:30)
[2017-07-22] MEDS ORDERED: EPINEPHRINE HCL (1:1000) 1 MG/ML AMP Reaction Med OTHER PRN (15:30)
[2017-07-22] MEDS: INSULIN NovoLIN REGULAR SUPPLEMENTAL SCALE SQ SCH ×2 (16:00→22:00)
[2017-07-22] MEDS: SODIUM CHLOR 0.9% 1000 ML INJ 1,000 ML IV SCH (16:26)
--- NOTE | 2017-07-22 16:31 | MB ---
cc: VIVIEN CALIX M.D. DATE OF CONSULTATION 07/22/2017 DATE OF 1970 HISTORY OF THE PRESENT ILLNESS The patient is 47-year-old female with past medical history of rheumatoid arthritis, chronic low back pain, anxiety disorder, COPD and hypothyroidism. She was admitted to [facility] on July 13 under hospitalist service for diskitis with paravertebral and epidural abscess. She had MRI of the spine which showed edema and abnormal enhancement in both T1 and T2 vertebral bodies and L5-S1 diskitis. The patient underwent needle biopsy / aspiration of the lumbar lumbosacral region by IR on July 14. During her hospital course she was being followed by infectious disease and neurosurgery. The patient has persistent staph aureus bacteremia despite being on vancomycin. Her blood cultures from July 13, , and showed staph aureus / gram-positive cocci. She is allergic to penicillin and plan to proceed with the penicillin desensitization with Ancef hence the patient is being transferred to ICU for close observation and critical care medicine was consulted for critical care management. Echocardiogram was obtained on July 16 which showed normal LV systolic function with EF of 60-65%. Mild tricuspid valve regurgitation. When seen the patient is awake, alert on room air oxygen. She denies any chest pain, shortness of breath, cough or any constitutional symptoms. In addition she denies any nausea, vomiting or abdominal pain. She had low grade fever with temperature 99.9 at midnight. She reports progressive worsening chronic back pain for the past 2 months to the point where she could not walk. PAST MEDICAL HISTORY Significant for: 1. Rheumatoid arthritis. 2. Chronic low back pain. 3. COPD. 4. Anxiety disorder. 5. Hypothyroidism. PAST SURGICAL HISTORY Right inguinal hernia at age 2. ALLERGIES PENICILLIN. SIDE EFFECTS INCLUDE HIVES WHEN SHE WAS [age] YEARS OLD. SOCIAL HISTORY Ex-smoker and ex-drinker. She denies any illicit drug use. FAMILY HISTORY Noncontributory. CURRENT MEDICATIONS 1. Vancomycin. 2. Flexeril. 3. Neurontin. 4. Folic acid. 5. Synthroid. 6. Morphine p.o. 7. Dilaudid. REVIEW OF SYSTEMS As per history of present illness, the rest of the review of symptoms unremarkable. PHYSICAL EXAMINATION GENERAL: A 47-year-old female in no acute respiratory distress. VITAL SIGNS: T-max 99.9, pulse of 93, respiratory rate of 18, blood pressure 94/58 with a MAP of 70, saturation 93%. HEENT: Atraumatic, normocephalic. Pupils equal, round, reactive to light and accommodation. Extraocular muscles intact. Conjunctiva pink. Nonicteric sclerae. Oral mucosa within normal. NECK: Supple. No JVD, adenopathy, thyromegaly. Trachea midline. CARDIOVASCULAR: Regular rate and rhythm. Normal S1-S2. No murmurs, rubs or gallops noted. LUNGS: Pulmonary exam bilateral equal entry. No rales or wheezing. ABDOMEN: Soft, nontender, no distension. Positive bowel sounds. EXTREMITIES: No cyanosis, clubbing or edema. NEUROLOGIC: No focal sensory deficit. LABORATORY DATA Sodium 134, potassium 3.8, chloride 96, CO2 28, BUN 4, creatinine 0.5, glucose 101. WBC 9, hemoglobin 10.8, hematocrit 32, platelet count 260. INR 1. PT 11.6, PTT 33.6. IMAGING Radiographic studies repeat cervical spine MRI from yesterday showed suspected osteomyelitis and diskitis in the T1 and T2 level. IMPRESSION 1. Persistent staph aureus bacteremia. 2. L5-S1 diskitis with paravertebral inflammation and small epidural abscess. 3. Suspected osteomyelitis in T1-T2 level. 4. Status post fine-needle aspiration of lumbosacral region on July 14. 5. History of rheumatoid arthritis. 6. Hypothyroidism. 7. Mild hyponatremia. 8. Anemia. RECOMMENDATIONS 1. The patient is being transferred to ICU for penicillin desensitization. 2. Continue with morphine and Dilaudid p.r.n. for pain control. Monitor neuro status. Neurosurgery is following. 3. Oxygen p.r.n. to maintain sats above 92%. 4. Bronchodilators on p.r.n. basis. 5. Monitor heart rate and blood pressure closely and maintain MAP greater than [address] on IV fluids in the form of NS at 84 ml hour. 6. Monitor renal function Is and Os and electrolyte replacement per protocol. IV fluids as stated above. 7. The patient is on p.o. regular diet. No indication for GI prophylaxis. 8. Continue with antibiotics per ID. Case discussed with Dr. Mohan. Plan to proceed with penicillin desensitization with Ancef due to persistent staph aureus bacteremia. Follow up on blood cultures from July 22. She is currently on vancomycin. We will monitor closely for any allergic reactions to penicillin. Monitor for signs of infections which include fever and WBC. 9. Place on sliding scale insulin with Accu-Cheks to maintain euglycemia and continue with Synthroid 125 mcg daily. Check a baseline TSH level. 10. Monitor CBC. The patient is on folic acid 1 mg daily. 11. Will check labs today which include CBC, BMP, mag and phos level. 12. DVT prophylaxis with SCDs. I will hold off on chemical anticoagulation prophylaxis given possible interventions or any procedures that she might need. 13. Further recommendations will be based on hospital course. MD BIN Gutierres/FRANCO /3:30 PM /4:03 PM [id number]
[2017-07-22] MEDS: ceFAZolin 1,000 MG/NS 100 ML IV ONE ×4 (17:15→17:58)
[2017-07-22 17:35] LABS: AUTOMATED NEUTROPHIL # 7.9 TH/MM3 (1.8-7.7); BASOPHIL # 0.1 TH/MM3 (0-0.2); BASOPHIL % 0.8 % (0.0-2.0); EOSINOPHIL # 0.2 TH/MM3 (0-0.4); EOSINOPHIL % 1.7 % (0.0-4.0); HEMO FLAGS DIFF FINAL; LYMPH % 25.4 % (9.0-44.0); LYMPHOCYTE # 3.2 TH/MM3 (1.0-4.8); MEAN CELL VOLUME 84.1 FL (80.0-100.0); MEAN CORPUSCULAR HEMOGLOBIN 27.2 PG (27.0-34.0); MEAN CORPUSCULAR HGB CONC 32.3 % (32.0-36.0); MONO % 9.2 % (0.0-8.0); NEUT % 62.9 % (16.0-70.0); PLATELET COUNT 342 TH/MM3 (150-450); RED BLOOD COUNT 3.69 MIL/MM3 (4.00-5.30); RED CELL DISTRIBUTION WIDTH 14.1 % (11.6-17.2); WHITE BLOOD COUNT 12.6 TH/MM3 (4.0-11.0)
[2017-07-22 17:56] LABS: BICARBONATE 29.5 MEQ/L (21.0-32.0); MAGNESIUM 2.1 MG/DL (1.5-2.5); POTASSIUM 3.9 MEQ/L (3.5-5.1)
[2017-07-22] MEDS ORDERED: CEFAZOLIN IV ONE ×2 (21:00)
[2017-07-22] MEDS ORDERED: SODIUM CHLORIDE 0.9% IV ONE ×2 (21:00)
[2017-07-22] MEDS: VANCOMYCIN 1,000 MG/NS 250 ML IV SCH ×2 (21:37)
[2017-07-23] VITALS (18 sets, daily range): BP systolic 92–114; BP diastolic 52–68; PULSE 77–97; RESP 16–26; TEMP 99–100.1; O2SAT 92–98
[2017-07-23] MEDS: HYDROmorphone HCL PF 1 MG/ML VIAL IV PUSH PRN ×5 (00:33→20:43)
[2017-07-23] MEDS: MORPHINE SULFATE 60 MG CONTROLLED RELEASE TAB PO SCH ×3 (01:02→17:33)
[2017-07-23] MEDS: HYDROmorphone HCL 4 MG TAB PO PRN ×2 (01:02→12:33)
[2017-07-23] MEDS: INSULIN NovoLIN REGULAR SUPPLEMENTAL SCALE SQ SCH ×4 (04:00→20:56)
[2017-07-23] MEDS ORDERED: ceFAZolin 2 GM PREMIX 50 ML IV SCH (05:00)
[2017-07-23] MEDS: LEVOTHYROXINE SODIUM 125 MCG TAB PO SCH (05:07)
[2017-07-23] MEDS: SODIUM CHLOR 0.9% 1000 ML INJ 1,000 ML IV SCH ×2 (05:07→20:44)
[2017-07-23] MEDS ORDERED: CHLORHEXIDINE GLUCONATE 2 % 1 PACK (2 CLOTHS)(extra cloths) TOPICAL PRN (05:15)
[2017-07-23 07:14] LABS: AUTOMATED NEUTROPHIL # 6.8 TH/MM3 (1.8-7.7); BASOPHIL # 0.1 TH/MM3 (0-0.2); EOSINOPHIL # 0.2 TH/MM3 (0-0.4); EOSINOPHIL % 2.1 % (0.0-4.0); HEMATOCRIT 27.4 % (35.0-46.0); HEMO FLAGS DIFF FINAL; LYMPH % 24.1 % (9.0-44.0); LYMPHOCYTE # 2.6 TH/MM3 (1.0-4.8); MEAN CORPUSCULAR HEMOGLOBIN 27.4 PG (27.0-34.0); MEAN CORPUSCULAR HGB CONC 32.7 % (32.0-36.0); MONO % 9.2 % (0.0-8.0); NEUT % 63.6 % (16.0-70.0); PLATELET COUNT 337 TH/MM3 (150-450); RED BLOOD COUNT 3.26 MIL/MM3 (4.00-5.30); WHITE BLOOD COUNT 10.7 TH/MM3 (4.0-11.0)
[2017-07-23 07:36] LABS: BICARBONATE 30.1 MEQ/L (21.0-32.0); POTASSIUM 3.4 MEQ/L (3.5-5.1)
[2017-07-23] MEDS: GABAPENTIN 100 MG CAP PO SCH ×3 (07:55→17:32)
[2017-07-23] MEDS: LACTOBACILLUS ACIDOPHILUS TAB PO SCH ×3 (07:55→17:32)
[2017-07-23] MEDS: FOLIC ACID 1 MG TAB PO SCH (07:55)
[2017-07-23] MEDS: ceFAZolin 2 GM PREMIX 50 ML IV SCH ×2 (07:56→15:27)
[2017-07-23] MEDS: SODIUM CHLORIDE 0.9% FLUSH 10 ML FLUSH IV FLUSH SCH ×2 (07:56→20:44)
[2017-07-23] MEDS: VANCOMYCIN 1,000 MG/NS 250 ML IV SCH ×4 (08:57→20:44)
[2017-07-23] MEDS ORDERED: POTASSIUM CHLORIDE 10 MEQ CONTROLLED RELEASE TAB PO ONE (09:45)
--- NOTE | 2017-07-23 09:45 | HHI.CCPN ---
Subjective Remarks/Hospital Course The patient is 47-year-old female with past medical history of rheumatoid arthritis, chronic low back pain, anxiety disorder, COPD and hypothyroidism. She was admitted to [facility] on July 13 under hospitalist service for diskitis with paravertebral and epidural abscess. She had MRI of the spine which showed edema and abnormal enhancement in both T1 and T2 vertebral bodies and L5-S1 diskitis. The patient underwent needle biopsy / aspiration of the lumbar lumbosacral region by IR on July 14. During her hospital course she was being followed by infectious disease and neurosurgery. The patient has persistent staph aureus bacteremia despite being on vancomycin. Her blood cultures from July 13, , and showed staph aureus / gram- positive cocci. She is allergic to penicillin and plan to proceed with the penicillin desensitization with Ancef hence the patient is being transferred to ICU for close observation and critical care medicine was consulted for critical care management. Echocardiogram was obtained on July 16 which showed normal LV systolic function with EF of 60-65%. Mild tricuspid valve regurgitation. When seen the patient is awake, alert on room air oxygen. She denies any chest pain, shortness of breath, cough or any constitutional symptoms. In addition she denies any nausea, vomiting or abdominal pain. She had low grade fever with temperature 99.9 at midnight. She reports progressive worsening chronic back pain for the past 2 months to the point where she could not walk. Subjective 07/23: Tmax 99.9. Currently afebrile. Requesting additional hydromorphone. She states she is on 8 mg daily at home. He actually pressure greater than 65 but low. Patient states this is normal for her. Denies any lower extremity weakness/paresthesias currently Objective Vital Signs Date Time Temp Pulse Resp B/P (MAP) Pulse Ox O2 Delivery O2 Flow Rate FiO2 07/23/17 08:00 99.0 07/23/17 08:00 78 19 96/57 (17) 94 Intake and Output 07/23/17 07/23/17 07/24/17 08:00 16:00 00:00 Intake Total 1190 ml Output Total 1000 ml Balance 190 ml Result Diagram: 07/23/17 0632 07/23/17 0632 Other Results Microbiology Date/Time Source Procedure Growth Status 07/22/17 13:58 Blood Peripheral Aerobic Blood Culture Pending Received 07/22/17 13:58 Blood Peripheral Anaerobic Blood Culture Pending Received 07/14/17 16:24 Abscess Back Gram Stain - Final Complete 07/14/17 16:24 Wound Culture - Final Staphylococcus Aureus Complete Imaging Last Impressions Lumbar Spine MRI 07/21/17 0000 Signed Impressions: Service Date/Time: Friday, July 21, 2017 17:35 - CONCLUSION: 1. Suspected discitis at the L5-S1 level with abnormal signal at the L5 vertebral body and upper sacrum likely related to osteomyelitis. There is prominent enhancement in the soft tissues surrounding the L5-S1 level including the prevertebral soft tissues and the anterior epidural space. These changes were present previously. 2. Loss of disc space height and mild bulging at the L2-L3 level without significant stenosis. Bipin Estrella MD Cervical Spine MRI 07/21/17 0000 Signed Impressions: Service Date/Time: Friday, July 21, 2017 17:35 - CONCLUSION: 1. Suspected osteomyelitis and discitis at the T1-T2 level. 2. Prominent increased signal and enhancement around the C1-C2 articulation and dens. This appears less prominent than it did on the prior exam. This could be secondary to hypertrophic change/inflammatory change. Apparently the patient has a history of rheumatoid. Infection cannot absolutely be ruled out but again these changes appear less prominent on the current exam than on than they did on the prior exam. 3. Suspected inflammatory change/infection at the T1-T2 level which will be more fully described in the thoracic spine MRI examination. 4. Mild disc bulges at the C3-C5 through C6-C7 levels without significant spinal stenosis. 5. Suspected hemangioma at the T3 level. Bipin Estrella MD Thoracic Spine MRI 07/14/17 0000 Signed Impressions: Service Date/Time: Friday, July 14, 2017 17:15 - CONCLUSION: 1. See the MRI of the cervical spine and lumbar spine reported separately. 2. Scoliotic curvature. 3. No acute abnormality. Ruperto Pozo Jr., MD Needle Biopsy/Aspiration X-Ray 07/14/17 0000 Signed Impressions: Service Date/Time: Friday, July 14, 2017 15:40 - CONCLUSION: Uncomplicated FNA of the lumbosacral disc as above. Edvin Cabrera MD Objective Remarks GENERAL: This is a 47-year-old female, resting in bed in no acute distress on room air SKIN: Warm and dry. Multiple tattoos bilateral lower extremities HEAD: Atraumatic. Normocephalic. EYES: Pupils equal and round. No scleral icterus. No injection or drainage. ENT: No nasal bleeding or discharge. Mucous membranes pink and moist. NECK: Trachea midline. No JVD. CARDIOVASCULAR: Regular rate and rhythm. S1, S2 no S4. 2/6 pansystolic murmur RESPIRATORY: Essentially clear to auscultation laterally. Breath sounds equal bilaterally. GASTROINTESTINAL: Abdomen soft, non-tender, nondistended. Hepatic and splenic margins not palpable. MUSCULOSKELETAL: Extremities without noted in peripheral edema. No obvious deformities. NEUROLOGICAL: Awake and alert. No obvious cranial nerve deficits. Motor grossly within normal limits. Five out of 5 muscle strength in the arms and legs. Normal speech. PSYCHIATRIC: Appropriate mood and affect; insight and judgment normal. A/P Assessment and Plan Neuro/Psych/MSK/RHEUM: L5-S1 diskitis with paravertebral inflammation and small epidural abscess. Suspected osteomyelitis in T1-T2 level. Rheumatoid arthritis Chronic narcotic use Patient is currently on morphine sulfate 60 mg every 8 hours and hydromorphone 8 mg by mouth twice a day/home medications. Patient states she takes usually hydromorphone 3 times daily at home Hydromorphone 1 mg every 4 hours when necessary breakthrough pain Currently on gabapentin 100 mg 3 times a day Resume methotrexate 3 mg every Thursday rheumatoid arthritis. 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 Similar findings on 07/21 MRI spine Followed by neurosurgery/Dr. New. Okay to discharge from their standpoint CV: Patient is currently normal saline at 84 cc an hour. No indication for vasopressors and/or antihypertensives at this time 2-D echocardiogram 07/16 revealed EF 60-65%. Trace TR. PAP 30 mmHg no signs of infective endocarditis Resp: Nasal cannula if indicated to maintain saturations greater than or equal to 90% Albuterol nebs every 2 hours. Dyspnea GI: Regular diet Pantoprazole for GI prophylaxis Docusate sodium/senna 1 tablet twice a day for bowel regimen : No indication for Art catheter Endo: Hypothyroidism Increase L-thyroxine to 137 g daily. TSH was 4.9. Free T4/T3 pending No indication for sliding scale insulin Renal: Creatinine currently within normal limits BMP in a.m. Heme: Normocytic anemia Repeat CBC in AM. Monitor trending ID: Persistent staph aureus bacteremia Day #2 cefazolin 2 g IV every 8 hours Present vancomycin 2 g IV every [address] Mohan/infectious disease following Pertinent cultures 07/22 - blood cultures 2 - pending 07/20 - blood cultures 2 - positive cocci 07/16 - blood cultures 2 - staph aureus 07/14 - blood cultures 2 - oxacillin sensitive staph aureus 07/13 - blood cultures 2 - oxacillin sensitive staph aureus Noted echocardiogram no signs of endocarditis transthoracic 07/24 FEN: Hypopotassemia 30 Vicente KCl 1 now. Recheck in a.m. Access - Utilize peripheral IV. Central line if indicated Prophylaxis - GI - pantoprazole - DVT - C/heparin subcutaneous Level II followup. Patient is stable from a critical care medicine standpoint. Signed care to hospitalist in a.m. 07/24. Justin Reynolds MD Jul 23, 2017 09:45
[2017-07-23] MEDS ORDERED: RESP: ALBUTEROL 2.5 MG/3 ML NEB (PRN) NEB (10:00)
[2017-07-23] MEDS ORDERED: GLYCERIN ADULT 2 GM SUPP RECTAL PRN (10:30)
--- NOTE | 2017-07-23 11:33 | HHI.IDPN ---
Note Infectious Disease Note Patient feels okay. Still having pain in the back and neck. . Tolerated Ancef desensitization okay. Afebrile. 07/20 - One of four blood culture had staph coag negative on last culture. Last positive blood culture for MSSA 07/16. PAST MEDICAL HISTORY 1. Rheumatoid arthritis. 2. Chronic low back pain. 3. COPD. 4. Anxiety disorder. 5. Thyroid disease. 6. Right inguinal hernia repair. ALLERGIES PENICILLIN. ANTIBIOTICS Ancef day #1 SOCIAL HISTORY No tobacco use. Positive alcohol, occasional. Denies illicit drugs. FAMILY HISTORY Noncontributory. OBJECTIVE: Vital Signs Date Time Temp Pulse Resp B/P (MAP) Pulse Ox O2 Delivery O2 Flow Rate FiO2 07/23/17 10:00 85 16 98/56 (70) 93 07/23/17 10:00 85 07/23/17 09:00 79 26 95 07/23/17 08:00 99.0 07/23/17 08:00 99.0 78 19 96/57 (70) 94 07/23/17 08:00 78 07/23/17 06:00 78 07/23/17 04:05 98 07/23/17 04:00 99.4 77 19 98/52 (67) 92 07/23/17 04:00 77 07/23/17 02:02 17 07/23/17 02:02 17 07/23/17 02:00 77 07/23/17 01:03 16 07/23/17 00:00 77 07/23/17 00:00 99.8 77 17 92/54 (67) 92 07/22/17 23:46 97 07/22/17 22:00 83 07/22/17 20:00 97.4 81 16 86/53 (64) 92 07/22/17 20:00 81 07/22/17 19:45 83 16 87/52 (64) 94 07/22/17 19:45 83 16 87/52 (64) 94 07/22/17 12:06 98.8 93 18 94/58 (70) 93 Microbiology Date/Time Source Procedure Growth Status 07/16/17 10:41 Blood Peripheral Aerobic Blood Culture - Preliminary NO GROWTH IN 1 DAY Resulted 07/16/17 10:41 Blood Peripheral Anaerobic Blood Culture - Preliminary NO GROWTH IN 1 DAY Resulted 07/16/17 10:35 Blood Peripheral Aerobic Blood Culture - Preliminary NO GROWTH IN 1 DAY Resulted 07/16/17 10:35 Blood Peripheral Anaerobic Blood Culture - Preliminary NO GROWTH IN 1 DAY Resulted 07/14/17 15:10 Blood Peripheral Aerobic Blood Culture - Final Staphylococcus Aureus Complete 07/14/17 15:10 Anaerobic Blood Culture - Final Staphylococcus Aureus Complete 07/14/17 15:05 Blood Peripheral Aerobic Blood Culture - Final Staphylococcus Aureus Complete 07/14/17 15:05 Anaerobic Blood Culture - Final Staphylococcus Aureus Complete 07/14/17 16:24 Abscess Back Gram Stain - Final Complete 07/14/17 16:24 Wound Culture - Final Staphylococcus Aureus Complete IMAGING: Lumbar Spine MRI 07/21/17 0000 Signed Impressions: Service Date/Time: Friday, July 21, 2017 17:35 - CONCLUSION: 1. Suspected discitis at the L5-S1 level with abnormal signal at the L5 vertebral body and upper sacrum likely related to osteomyelitis. There is prominent enhancement in the soft tissues surrounding the L5-S1 level including the prevertebral soft tissues and the anterior epidural space. These changes were present previously. 2. Loss of disc space height and mild bulging at the L2-L3 level without significant stenosis. Bipin Estrella MD Cervical Spine MRI 07/21/17 0000 Signed Impressions: Service Date/Time: Friday, July 21, 2017 17:35 - CONCLUSION: 1. Suspected osteomyelitis and discitis at the T1-T2 level. 2. Prominent increased signal and enhancement around the C1-C2 articulation and dens. This appears less prominent than it did on the prior exam. This could be secondary to hypertrophic change/inflammatory change. Apparently the patient has a history of rheumatoid. Infection cannot absolutely be ruled out but again these changes appear less prominent on the current exam than on than they did on the prior exam. 3. Suspected inflammatory change/infection at the T1-T2 level which will be more fully described in the thoracic spine MRI examination. 4. Mild disc bulges at the C3-C5 through C6-C7 levels without significant spinal stenosis. 5. Suspected hemangioma at the T3 level. Bipin Estrella MD PHYSICAL EXAMINATION GENERAL: No acute distress. HEENT: Extraocular movements grossly intact. Pupils reactive to light. No icterus. Oropharynx no visible lesions. NECK: Mild stiffness. LUNGS: Clear to auscultation. HEART: Regular S1 and S2, without audible murmurs. ABDOMEN: Bowel sounds present. Soft. No tenderness. EXTREMITIES: No clubbing, cyanosis or edema. SKIN: No rash. NEUROLOGIC: No gross focal findings. PSYCH: Calm and cooperative. IMPRESSION Discitis, paravertebral and small epidural abscess Lumbar spine L5-S1. Staph aureus. Neurosurgery following. Suspected osteomyelitis at T1-2. Bacteremia staph aureus. Last blood culture with staph Epi in one bottle is most likely contamination. RECOMMENDATIONS 1. Continue IV Ancef. 2. Follow blood cultures. Repeated 07/22. 3. No PIC until negative blood culture x 3 day. 4. Monitor clinical response. 5. Repeat sed rate, CRP. The patient will need arrangement for 8 weeks of IV antibiotics for treatment of this infection. Jay Mohan MD Jul 23, 2017 11:33
--- NOTE | 2017-07-23 14:42 | HHI.NSPN ---
(Norm KoromaAldo MACP) History Chief Complaint: Neck and back pain (Norm Koroma) Interval History 07/14: Ms. Shine is a 47-year-old lady who presented to [facility] Emergency room last evening with complaint of neck and back pain for approximately 2 months. She has had previous episodes of spinal pain. She recently presented in May 2017 to the emergency room with several days of severe low back pain which had been evaluated at [facility] emergency room prior to presenting to [place] emergency room on May 23, 2017. She reportedly had an MRI of the lumbar spine done at [facility] emergency room which she indicated was negative for any acute findings. A CT scan at [place] emergency room revealed degenerative changes. It was noted that she had leukocytosis, which was felt to likely be related to steroids. The patient requested discharge home on 05/24/17 to follow up with her pain management physician. She has gone to a chiropractor recently with increase in the pain symptoms during the treatment. She does have a history of rheumatoid arthritis and is on prednisone and methotrexate. 07/15: When seen this afternoon the patient states that she is doing better than yesterday. She does have pain to the neck and the lower back. She also has numbness to the toes. Her arms and legs feel weak. She went for an aspiration of the L5-S1 disc yesterday as well as an MRI of the thoracic spine. 07/20: This morning the patient is doing all right. She does continue to have pain to the neck and back with weakness to the extremities. 07/21: When seen the patient is awake and alert. She states that she has neck pain but her back is a little better. She still has weakness to the extremities. 07/23: The patient this afternoon is seen sitting in a chair. Her head is leaning forward due to her neck. She complains of neck and low back pain. The neck is the worse. She says she is uncomfortable sitting up in the chair. She was transferred to the [facility] unit for penicillin desensisation yesterday. She completed MRIs of the cervical and lumbar spine on . (Norm Koroma) System Review Comments MUSCULOSKELETAL: Neck and low back pain. Right shoulder pain. Arms and legs feel weak. (Norm Koroma) Exam Results 07/21/17 07/21/17 07/22/17 07/22/17 07/23/17 07/23/17 06:00 18:00 06:00 18:00 06:00 18:00 Intake Total 360 ml 502.5 ml 1571 ml 300 ml Output Total 1000 ml Balance 360 ml 502.5 ml 571 ml 300 ml Intake Oral 360 ml 240 ml 240 ml IV Total 262.5 ml 1331 ml 300 ml Output Urine Total 1000 ml # Voids 5 8 3 # Bowel Movements 0 Vital Signs Date Time Temp Pulse Resp B/P (MAP) Pulse Ox O2 Delivery O2 Flow Rate FiO2 07/23/17 12:00 99.5 79 19 108/68 (81) 97 07/23/17 12:00 79 07/23/17 11:00 79 25 97/54 (68) 94 07/23/17 10:00 85 16 98/56 (70) 93 07/23/17 10:00 85 07/23/17 09:00 79 26 95 07/23/17 08:00 99.0 07/23/17 08:00 99.0 78 19 96/57 (70) 94 07/23/17 08:00 78 07/23/17 06:00 78 07/23/17 04:05 98 07/23/17 04:00 99.4 77 19 98/52 (67) 92 07/23/17 04:00 77 07/23/17 02:02 17 07/23/17 02:02 17 07/23/17 02:00 77 07/23/17 01:03 16 07/23/17 00:00 77 07/23/17 00:00 99.8 77 17 92/54 (67) 92 07/22/17 23:46 97 07/22/17 22:00 83 07/22/17 20:00 97.4 81 16 86/53 (64) 92 07/22/17 20:00 81 07/22/17 19:45 83 16 87/52 (64) 94 07/22/17 19:45 83 16 87/52 (64) 94 07/22/17 12:06 98.8 93 18 94/58 (70) 93 07/22/17 09:50 86 07/22/17 07:53 99.2 87 17 98/53 (68) 95 07/22/17 04:00 99.1 92 18 103/54 (70) 94 07/22/17 00:00 99.9 98 18 104/57 (73) 94 07/21/17 20:00 99.6 103 18 106/58 (74) 96 07/21/17 16:32 98.0 95 18 90/56 (67) 93 07/21/17 12:04 98.3 96 18 98/57 (71) 93 07/21/17 08:05 98.5 77 18 96/55 (69) 95 07/21/17 07:30 81 07/21/17 04:00 98.4 79 18 107/54 (71) 94 07/21/17 00:00 98.3 86 18 113/61 (78) 97 07/20/17 20:00 98.6 90 17 111/57 (75) 95 07/20/17 19:00 91 07/20/17 16:25 98.4 89 18 101/56 (71) 94 (Norm Koroma) Physical Examination GENERAL: Awake & alert, readily interacts, affect flat, no apparent distress. NECK: Midline cervical spine TTP, no JVD, trachea midline. MUSCULOSKELETAL: SETH. TTP at the cervicothoracic & lumbosacral junction. TTP at the right anterior shoulder joint. NEUROLOGICAL: AAOx3. Speech clear & appropriate. Follows simple commands w/o difficulty. Sensation intact to light touch to all extremities except for toes which is decreased. Motor strength is mostly 4/5 to the right upper extremity except the right deltoid is 3/5 due to pain and the left upper extremity is 4+/5. Hand intrinsics & extrinsics weak. Motor strength is 4+/5 to the lower extremities. (Norm Koroma) Lab, Micro, Other Results Recent Impressions Lumbar Spine MRI 07/21/17 0000 Signed Impressions: Service Date/Time: Friday, July 21, 2017 17:35 - CONCLUSION: 1. Suspected discitis at the L5-S1 level with abnormal signal at the L5 vertebral body and upper sacrum likely related to osteomyelitis. There is prominent enhancement in the soft tissues surrounding the L5-S1 level including the prevertebral soft tissues and the anterior epidural space. These changes were present previously. 2. Loss of disc space height and mild bulging at the L2-L3 level without significant stenosis. Bipin Estrella MD Cervical Spine MRI 07/21/17 0000 Signed Impressions: Service Date/Time: Friday, July 21, 2017 17:35 - CONCLUSION: 1. Suspected osteomyelitis and discitis at the T1-T2 level. 2. Prominent increased signal and enhancement around the C1-C2 articulation and dens. This appears less prominent than it did on the prior exam. This could be secondary to hypertrophic change/inflammatory change. Apparently the patient has a history of rheumatoid. Infection cannot absolutely be ruled out but again these changes appear less prominent on the current exam than on than they did on the prior exam. 3. Suspected inflammatory change/infection at the T1-T2 level which will be more fully described in the thoracic spine MRI examination. 4. Mild disc bulges at the C3-C5 through C6-C7 levels without significant spinal stenosis. 5. Suspected hemangioma at the T3 level. Bipin Estrella MD Laboratory Tests Test 07/21/17 05:45 07/22/17 06:00 07/22/17 16:50 07/22/17 16:59 White Blood Count 9.0 TH/MM3 12.6 TH/MM3 Red Blood Count 3.85 MIL/MM3 3.69 MIL/MM3 Hemoglobin 10.8 GM/DL 10.0 GM/DL Hematocrit 32.4 % 31.0 % Mean Corpuscular Volume 84.2 FL 84.1 FL Mean Corpuscular Hemoglobin 28.0 PG 27.2 PG Mean Corpuscular Hemoglobin Concent 33.2 % 32.3 % Red Cell Distribution Width 14.3 % 14.1 % Platelet Count 260 TH/MM3 342 TH/MM3 Mean Platelet Volume 8.0 FL 7.5 FL Neutrophils (%) (Auto) 58.1 % 62.9 % Lymphocytes (%) (Auto) 30.9 % 25.4 % Monocytes (%) (Auto) 8.4 % 9.2 % Eosinophils (%) (Auto) 2.0 % 1.7 % Basophils (%) (Auto) 0.6 % 0.8 % Neutrophils # (Auto) 5.2 TH/MM3 7.9 TH/MM3 Lymphocytes # (Auto) 2.8 TH/MM3 3.2 TH/MM3 Monocytes # (Auto) 0.7 TH/MM3 1.2 TH/MM3 Eosinophils # (Auto) 0.2 TH/MM3 0.2 TH/MM3 Basophils # (Auto) 0.1 TH/MM3 0.1 TH/MM3 CBC Comment AUTO DIFF DIFF FINAL Differential Total Cells Counted 100 Neutrophils % (Manual) 56 % Band Neutrophils % 14 % Lymphocytes % 19 % Monocytes % 7 % Eosinophils % 3 % Neutrophils # (Manual) 6.4 TH/MM3 Metamyelocytes 1 % Differential Comment FINAL DIFF MANUAL Platelet Estimate NORMAL Platelet Morphology Comment NORMAL Red Cell Morphology Comment NORMAL Blood Urea Nitrogen 4 MG/DL 7 MG/DL Creatinine 0.50 MG/DL 0.59 MG/DL 0.58 MG/DL Random Glucose 101 MG/DL 98 MG/DL Calcium Level 9.4 MG/DL 8.8 MG/DL Sodium Level 134 MEQ/L 135 MEQ/L Potassium Level 3.8 MEQ/L 3.9 MEQ/L Chloride Level 96 MEQ/L 98 MEQ/L Carbon Dioxide Level 28.5 MEQ/L 29.5 MEQ/L Anion Gap 10 MEQ/L 8 MEQ/L Estimat Glomerular Filtration Rate 132 ML/MIN 109 ML/MIN 111 ML/MIN Vancomycin Level Trough 22.6 MCG/ML Phosphorus Level 4.3 MG/DL Magnesium Level 2.1 MG/DL Test 07/23/17 05:00 07/23/17 06:32 Nasal Screen MRSA (PCR) MRSA NOT DETECTED White Blood Count 10.7 TH/MM3 Red Blood Count 3.26 MIL/MM3 Hemoglobin 8.9 GM/DL Hematocrit 27.4 % Mean Corpuscular Volume 84.0 FL Mean Corpuscular Hemoglobin 27.4 PG Mean Corpuscular Hemoglobin Concent 32.7 % Red Cell Distribution Width 14.0 % Platelet Count 337 TH/MM3 Mean Platelet Volume 7.2 FL Neutrophils (%) (Auto) 63.6 % Lymphocytes (%) (Auto) 24.1 % Monocytes (%) (Auto) 9.2 % Eosinophils (%) (Auto) 2.1 % Basophils (%) (Auto) 1.0 % Neutrophils # (Auto) 6.8 TH/MM3 Lymphocytes # (Auto) 2.6 TH/MM3 Monocytes # (Auto) 1.0 TH/MM3 Eosinophils # (Auto) 0.2 TH/MM3 Basophils # (Auto) 0.1 TH/MM3 CBC Comment DIFF FINAL Differential Comment Blood Urea Nitrogen 3 MG/DL Creatinine 0.56 MG/DL Random Glucose 143 MG/DL Calcium Level 8.3 MG/DL Sodium Level 139 MEQ/L Potassium Level 3.4 MEQ/L Chloride Level 102 MEQ/L Carbon Dioxide Level 30.1 MEQ/L Anion Gap 7 MEQ/L Estimat Glomerular Filtration Rate 116 ML/MIN Thyroid Stimulating Hormone 3rd Gen 4.920 uIU/ML (Norm Koroma) Medical Decision Making Impression and Plan Impression: 1. L5-S1 discitis with perivertebral inflammation-abscess. There is a very small probable epidural abscess component, without significant canal stenosis or nerve impingement. 2. Rheumatoid arthritis Patient doing well, persistent neck pain, back doing better, continues with extremity weakness. Reviewed labs for today. Blood cultures from with Staph aureus. Blood cultures from w/o growth to date. MRI cervical spine with suspected osteomyelitis and discitis at the T1-T2 level. The increased signal and enhancement around the C1-2 articulation and dens is less prominent than on the prior exam. Also demonstrated are mild disc bulges at C3-4 through C6-7 levels and a suspected haemangioma at the T3 level. MRI lumbar spine with suspected discitis at the L5-S1 level with an abnormal signal at the L5 vertebral body and upper sacrum suspicious for osteomyelitis. There is prominene enhancement of the L5-S1 level soft tissues and anterior epidural space. Also, at the L2-L3 level is a loss of disc space height and mild bulging. Plan: Will follow intermittently while in the hospital. Mobilise patient w/assistance, no reaching or lifting though. Antibiotics per Infectious Disease. Will repeat spine MRIs on . (Norm Koroma) Attending Statement The exam, history, and the medical decision-making described in the above note were completed with the assistance of the mid-level provider. I reviewed and agree with the findings presented. I attest that I had a [id number] encounter with the patient on the same day, and personally performed and documented my assessment and findings in the medical record. Patient's exam on 07/23/17 stable. Still has some mild distal right upper extremity weakness, particularly hand intrinsics which appeared related to arthritic changes. Continued complaint of neck and low back pain increased with ambulation. Labs reviewed. WBC within normal limits today. Recent imaging studies reviewed again. No significant change between the patient's to recent MRI lumbar spine studies. She does have some probable fluid abscess within the disc space and prevertebral region, but no epidural abscess. Presently continuing Ancef. Can continue to monitor her imaging studies and neurologic exam with conservative treatment and observation from a neurosurgical standpoint, although if debridement of the disc space and further drainage of any abscess material is felt to be advantageous from a infectious disease standpoint, then surgical debridement can be performed. (García New MD) Norm Koroma Jul 23, 2017 14:42 García New MD Jul 24, 2017 00:20
[2017-07-23] MEDS: DOCUSATE SODIUM 50 MG/SENNA 8.6 MG TAB PO SCH ×2 (20:44→20:56)
[2017-07-24] VITALS (11 sets, daily range): BP systolic 104–127; BP diastolic 55–94; PULSE 78–100; RESP 16–26; TEMP 98.5–99.6; O2SAT 91–100
[2017-07-24] MEDS: HYDROmorphone HCL 4 MG TAB PO PRN (00:14)
[2017-07-24] MEDS: ceFAZolin 2 GM PREMIX 50 ML IV SCH ×3 (00:15→18:05)
[2017-07-24] MEDS: MORPHINE SULFATE 60 MG CONTROLLED RELEASE TAB PO SCH ×3 (02:15→18:06)
[2017-07-24] MEDS: SODIUM CHLOR 0.9% 1000 ML INJ 1,000 ML IV SCH ×2 (03:15→15:10)
[2017-07-24] MEDS: INSULIN NovoLIN REGULAR SUPPLEMENTAL SCALE SQ SCH ×4 (04:00→22:00)
[2017-07-24] MEDS: CHLORHEXIDINE GLUCONATE 2 % 1 PACK (2 CLOTHS)(taper/protocol) TOPICAL SCH (04:00)
[2017-07-24] MEDS: LEVOTHYROXINE SODIUM 112 MCG TAB PO SCH (05:57)
[2017-07-24] MEDS: LEVOTHYROXINE SODIUM 25 MCG TAB PO SCH (05:57)
[2017-07-24] MEDS: HYDROmorphone HCL PF 1 MG/ML VIAL IV PUSH PRN (05:58)
[2017-07-24 06:25] LABS: AUTOMATED NEUTROPHIL # 5.1 TH/MM3 (1.8-7.7); BASOPHIL # 0.1 TH/MM3 (0-0.2); BASOPHIL % 0.9 % (0.0-2.0); EOSINOPHIL # 0.2 TH/MM3 (0-0.4); EOSINOPHIL % 1.9 % (0.0-4.0); HEMATOCRIT 28.8 % (35.0-46.0); HEMO FLAGS DIFF FINAL; LYMPH % 26.9 % (9.0-44.0); LYMPHOCYTE # 2.3 TH/MM3 (1.0-4.8); MEAN CELL VOLUME 83.3 FL (80.0-100.0); MEAN CORPUSCULAR HGB CONC 33.6 % (32.0-36.0); MONO % 10.3 % (0.0-8.0); PLATELET COUNT 360 TH/MM3 (150-450); RED BLOOD COUNT 3.46 MIL/MM3 (4.00-5.30); RED CELL DISTRIBUTION WIDTH 14.3 % (11.6-17.2); WHITE BLOOD COUNT 8.5 TH/MM3 (4.0-11.0)
[2017-07-24 06:49] LABS: ALT (GPT) 9 U/L (10-53); ANION GAP 8 MEQ/L (5-15); AST (GOT) 11 U/L (15-37); BICARBONATE 29.3 MEQ/L (21.0-32.0); BLOOD UREA NITROGEN 4 MG/DL (7-18); CHLORIDE 99 MEQ/L (98-107); GLOMERULAR FILTRATION RATE 129 ML/MIN (>89); MAGNESIUM 1.8 MG/DL (1.5-2.5); POTASSIUM 3.8 MEQ/L (3.5-5.1); SODIUM (NA) 136 MEQ/L (136-145)
[2017-07-24 06:58] LABS: ALKALINE PHOSPHATASE 89 U/L (45-117); FREE T3 1.79 PG/ML (2.18-3.98); TOTAL BILIRUBIN ADULT 0.3 MG/DL (0.2-1.0)
[2017-07-24 07:14] LABS: CREATINE KINASE 8 U/L (26-192)
--- NOTE | 2017-07-24 08:00 | HHI.PR ---
Subjective Remarks In bed. Says she had more pain in the morning today. Also had fevers and chills in the morning. No n/v/d/c. Objective Vitals Vital Signs Date Time Temp Pulse Resp B/P (MAP) Pulse Ox O2 Delivery O2 Flow Rate FiO2 07/24/17 06:00 85 07/24/17 04:00 99.1 85 16 94 07/24/17 04:00 100 07/24/17 02:00 78 07/24/17 00:00 99.0 88 20 104/55 (71) 91 07/24/17 00:00 85 07/23/17 22:00 94 07/23/17 20:44 94 21 07/23/17 20:00 89 07/23/17 20:00 99.7 92 20 102/55 (71) 93 07/23/17 18:00 97 07/23/17 16:00 100.1 85 18 114/62 (79) 95 07/23/17 16:00 85 07/23/17 15:00 82 17 07/23/17 14:00 85 07/23/17 14:00 85 16 07/23/17 13:00 91 24 07/23/17 12:00 99.5 79 19 108/68 (81) 97 07/23/17 12:00 79 07/23/17 11:00 79 25 97/54 (68) 94 07/23/17 10:00 85 16 98/56 (70) 93 07/23/17 10:00 85 07/23/17 09:00 79 26 95 07/23/17 08:00 99.0 07/23/17 08:00 99.0 78 19 96/57 (70) 94 07/23/17 08:00 78 I/O 07/23/17 07/23/17 07/23/17 07/24/17 07/24/17 07/24/17 07:00 15:00 23:00 07:00 15:00 23:00 Intake Total 1200 ml 300 ml 1030 ml 200 ml Output Total 1000 ml 850 ml 1500 ml Balance 200 ml 300 ml 180 ml -1300 ml Intake Oral 240 ml 980 ml 200 ml IV Total 960 ml 300 ml 50 ml Output Urine Total 1000 ml 850 ml 1500 ml # Voids 3 3 # Bowel Movements 0 Result Diagram: 07/24/17 0550 07/24/17 0550 Imaging Last Impressions Lumbar Spine MRI 07/21/17 0000 Signed Impressions: Service Date/Time: Friday, July 21, 2017 17:35 - CONCLUSION: 1. Suspected discitis at the L5-S1 level with abnormal signal at the L5 vertebral body and upper sacrum likely related to osteomyelitis. There is prominent enhancement in the soft tissues surrounding the L5-S1 level including the prevertebral soft tissues and the anterior epidural space. These changes were present previously. 2. Loss of disc space height and mild bulging at the L2-L3 level without significant stenosis. Bipin Estrella MD Cervical Spine MRI 07/21/17 0000 Signed Impressions: Service Date/Time: Friday, July 21, 2017 17:35 - CONCLUSION: 1. Suspected osteomyelitis and discitis at the T1-T2 level. 2. Prominent increased signal and enhancement around the C1-C2 articulation and dens. This appears less prominent than it did on the prior exam. This could be secondary to hypertrophic change/inflammatory change. Apparently the patient has a history of rheumatoid. Infection cannot absolutely be ruled out but again these changes appear less prominent on the current exam than on than they did on the prior exam. 3. Suspected inflammatory change/infection at the T1-T2 level which will be more fully described in the thoracic spine MRI examination. 4. Mild disc bulges at the C3-C5 through C6-C7 levels without significant spinal stenosis. 5. Suspected hemangioma at the T3 level. Bipin Estrella MD Thoracic Spine MRI 07/14/17 0000 Signed Impressions: Service Date/Time: Friday, July 14, 2017 17:15 - CONCLUSION: 1. See the MRI of the cervical spine and lumbar spine reported separately. 2. Scoliotic curvature. 3. No acute abnormality. Ruperto Pozo Jr., MD Needle Biopsy/Aspiration X-Ray 07/14/17 0000 Signed Impressions: Service Date/Time: Friday, July 14, 2017 15:40 - CONCLUSION: Uncomplicated FNA of the lumbosacral disc as above. Edvin Cabrera MD Objective Remarks GENERAL: This is a well-nourished, well-developed female patient, lying in bed with generalized pain. SKIN: The sacral/gluteal area there is some erythema and a tiny skin tear. CARDIOVASCULAR: Regular rate and rhythm without murmurs, gallops, or rubs. RESPIRATORY: Clear to auscultation. Breath sounds equal bilaterally. No wheezes , rales, or rhonchi. GASTROINTESTINAL: Abdomen soft, non-tender, nondistended. No guarding. MUSCULOSKELETAL: Extremities without clubbing, cyanosis, or edema. No joint tenderness, effusion, or edema noted. 5 out of 5 upper and lower extremity muscle strength. A/P Problem List: (1) Rheumatoid arthritis ICD Code: M06.9 - Rheumatoid arthritis, unspecified (2) Chronic neck and back pain ICD Code: M54.2 - Cervicalgia; M54.9 - Dorsalgia, unspecified (3) Weakness ICD Code: R53.1 - Weakness Assessment and Plan Mrs. Shine is a 47-year-old female patient with a known medical history of rheumatoid arthritis who presented to the ED with complaints of worsening neck and back pain and increasing weakness. Neuro/Psych/MSK/RHEUM: L5-S1 diskitis with paravertebral inflammation and small epidural abscess. Suspected osteomyelitis in T1-T2 level. Rheumatoid arthritis Chronic narcotic use Muscle spasm. Add Flexeril Patient is currently on morphine sulfate 60 mg every 8 hours and hydromorphone 8 mg by mouth twice a day/home medications. Patient states she takes usually hydromorphone 3 times daily at home Hydromorphone 1 mg every 4 hours when necessary breakthrough pain Currently on gabapentin 100 mg 3 times a day Resume methotrexate 3 mg every Thursday rheumatoid arthritis. 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 Similar findings on 07/21 MRI spine Followed by neurosurgery/Dr. New. Okay to discharge from their standpoint ID: Persistent staph aureus bacteremia Started cefazolin 2 g IV every 8 hours 07/22/17 Present vancomycin 2 g IV every [address] Mohan/infectious disease following Pertinent cultures 07/22 - blood cultures 2 - pending 07/20 - blood cultures 2 - positive cocci 07/16 - blood cultures 2 - staph aureus 07/14 - blood cultures 2 - oxacillin sensitive staph aureus 07/13 - blood cultures 2 - oxacillin sensitive staph aureus Noted TT echocardiogram no signs of endocarditis 07/24 CV: Patient is currently normal saline at 84 cc an hour. No indication for vasopressors and/or antihypertensives at this time 2-D echocardiogram 07/16 revealed EF 60-65%. Trace TR. PAP 30 mmHg no signs of infective endocarditis Resp: Nasal cannula if indicated to maintain saturations greater than or equal to 90% Albuterol nebs every 2 hours. Dyspnea GI: Regular diet Pantoprazole for GI prophylaxis Docusate sodium/senna 1 tablet twice a day for bowel regimen : No indication for Art catheter Endo: Hypothyroidism Increase L-thyroxine to 137 g daily. TSH was 4.9. Free T4/T3 pending No indication for sliding scale insulin Renal: Creatinine currently within normal limits BMP in a.m.Monitor kidney indices Heme: Normocytic anemia Repeat CBC in AM. Monitor trending Hypopotassemia 30 Vicente KCl 1 now. Recheck in a.m. Access - Utilize peripheral IV. Central line if indicated Prophylaxis - GI - pantoprazole - DVT - C/heparin subcutaneous Discussed with the patient, nurse Raina Griffin MD Jul 24, 2017 08:00
[2017-07-24] MEDS: SODIUM CHLORIDE 0.9% FLUSH 10 ML FLUSH IV FLUSH SCH ×2 (08:22→21:00)
[2017-07-24] MEDS: GABAPENTIN 100 MG CAP PO SCH ×3 (08:22→18:06)
[2017-07-24] MEDS: LACTOBACILLUS ACIDOPHILUS TAB PO SCH ×3 (08:22→18:06)
[2017-07-24] MEDS: PANTOPRAZOLE SOD 40 MG DELAYED RELEASE TAB PO SCH (08:22)
[2017-07-24] MEDS: FOLIC ACID 1 MG TAB PO SCH (08:22)
[2017-07-24] MEDS: VANCOMYCIN 1,000 MG/NS 250 ML IV SCH ×4 (08:23→23:10)
[2017-07-24] MEDS ORDERED: PHARMACY ORDERED LAB ONE (08:45)
[2017-07-24] MEDS: DOCUSATE SODIUM 50 MG/SENNA 8.6 MG TAB PO SCH ×2 (09:00→21:00)
--- NOTE | 2017-07-24 15:19 | HHI.IDPN ---
Note Infectious Disease Note Patient feels better. Still having pain in the back and neck. No new complaints. Afebrile. 07/20 - One of four blood culture had staph coag negative on last culture. Last positive blood culture for MSSA 07/16. PAST MEDICAL HISTORY 1. Rheumatoid arthritis. 2. Chronic low back pain. 3. COPD. 4. Anxiety disorder. 5. Thyroid disease. 6. Right inguinal hernia repair. ALLERGIES PENICILLIN. ANTIBIOTICS Ancef SOCIAL HISTORY No tobacco use. Positive alcohol, occasional. Denies illicit drugs. FAMILY HISTORY Noncontributory. OBJECTIVE: Vital Signs Date Time Temp Pulse Resp B/P (MAP) Pulse Ox O2 Delivery O2 Flow Rate FiO2 07/24/17 10:00 93 07/24/17 08:00 93 07/24/17 08:00 99.6 90 26 117/64 (81) 96 07/24/17 06:00 85 07/24/17 04:00 99.1 85 16 94 07/24/17 04:00 100 07/24/17 02:00 78 07/24/17 00:00 99.0 88 20 104/55 (71) 91 07/24/17 00:00 85 07/23/17 22:00 94 07/23/17 20:44 94 21 07/23/17 20:00 89 07/23/17 20:00 99.7 92 20 102/55 (71) 93 07/23/17 18:00 97 07/23/17 16:00 100.1 85 18 114/62 (79) 95 07/23/17 16:00 85 Laboratory Tests Test 07/22/17 16:50 07/23/17 06:32 07/24/17 05:50 White Blood Count 12.6 TH/MM3 10.7 TH/MM3 8.5 TH/MM3 Red Blood Count 3.69 MIL/MM3 3.26 MIL/MM3 3.46 MIL/MM3 Hemoglobin 10.0 GM/DL 8.9 GM/DL 9.7 GM/DL Hematocrit 31.0 % 27.4 % 28.8 % Mean Corpuscular Volume 84.1 FL 84.0 FL 83.3 FL Mean Corpuscular Hemoglobin 27.2 PG 27.4 PG 28.0 PG Mean Corpuscular Hemoglobin Concent 32.3 % 32.7 % 33.6 % Red Cell Distribution Width 14.1 % 14.0 % 14.3 % Platelet Count 342 TH/MM3 337 TH/MM3 360 TH/MM3 Mean Platelet Volume 7.5 FL 7.2 FL 7.0 FL Neutrophils (%) (Auto) 62.9 % 63.6 % 60.0 % Lymphocytes (%) (Auto) 25.4 % 24.1 % 26.9 % Monocytes (%) (Auto) 9.2 % 9.2 % 10.3 % Eosinophils (%) (Auto) 1.7 % 2.1 % 1.9 % Basophils (%) (Auto) 0.8 % 1.0 % 0.9 % Neutrophils # (Auto) 7.9 TH/MM3 6.8 TH/MM3 5.1 TH/MM3 Lymphocytes # (Auto) 3.2 TH/MM3 2.6 TH/MM3 2.3 TH/MM3 Monocytes # (Auto) 1.2 TH/MM3 1.0 TH/MM3 0.9 TH/MM3 Eosinophils # (Auto) 0.2 TH/MM3 0.2 TH/MM3 0.2 TH/MM3 Basophils # (Auto) 0.1 TH/MM3 0.1 TH/MM3 0.1 TH/MM3 CBC Comment DIFF FINAL DIFF FINAL DIFF FINAL Differential Comment Erythrocyte Sedimentation Rate 39 mm/hr Laboratory Tests Test 07/22/17 16:59 07/23/17 06:32 07/24/17 05:50 Blood Urea Nitrogen 7 MG/DL 3 MG/DL 4 MG/DL Creatinine 0.58 MG/DL 0.56 MG/DL 0.51 MG/DL Random Glucose 98 MG/DL 143 MG/DL 98 MG/DL Calcium Level 8.8 MG/DL 8.3 MG/DL 8.6 MG/DL Phosphorus Level 4.3 MG/DL 3.8 MG/DL Magnesium Level 2.1 MG/DL 1.8 MG/DL Sodium Level 135 MEQ/L 139 MEQ/L 136 MEQ/L Potassium Level 3.9 MEQ/L 3.4 MEQ/L 3.8 MEQ/L Chloride Level 98 MEQ/L 102 MEQ/L 99 MEQ/L Carbon Dioxide Level 29.5 MEQ/L 30.1 MEQ/L 29.3 MEQ/L Anion Gap 8 MEQ/L 7 MEQ/L 8 MEQ/L Estimat Glomerular Filtration Rate 111 ML/MIN 116 ML/MIN 129 ML/MIN Thyroid Stimulating Hormone 3rd Gen 4.920 uIU/ML Total Protein 6.8 GM/DL Albumin 1.8 GM/DL Alkaline Phosphatase 89 U/L Aspartate Amino Transf (AST/SGOT) 11 U/L Alanine Aminotransferase (ALT/SGPT) 9 U/L Total Bilirubin 0.3 MG/DL Lactic Acid Level 0.8 mmol/L Total Creatine Kinase 8 U/L C-Reactive Protein 6.41 MG/DL Free Thyroxine 1.60 NG/DL Free Triiodothyronine (T3) pg/dL 1.79 PG/ML Microbiology Date/Time Source Procedure Growth Status 07/22/17 13:58 Blood Peripheral Aerobic Blood Culture - Preliminary NO GROWTH IN 2 DAYS Resulted 07/22/17 13:58 Blood Peripheral Anaerobic Blood Culture - Preliminary NO GROWTH IN 2 DAYS Resulted 07/22/17 13:58 Blood Peripheral Aerobic Blood Culture - Preliminary NO GROWTH IN 2 DAYS Resulted 07/22/17 13:58 Blood Peripheral Anaerobic Blood Culture - Preliminary NO GROWTH IN 2 DAYS Resulted IMAGING: Lumbar Spine MRI 07/21/17 0000 Signed Impressions: Service Date/Time: Friday, July 21, 2017 17:35 - CONCLUSION: 1. Suspected discitis at the L5-S1 level with abnormal signal at the L5 vertebral body and upper sacrum likely related to osteomyelitis. There is prominent enhancement in the soft tissues surrounding the L5-S1 level including the prevertebral soft tissues and the anterior epidural space. These changes were present previously. 2. Loss of disc space height and mild bulging at the L2-L3 level without significant stenosis. Bipin Estrella MD Cervical Spine MRI 07/21/17 0000 Signed Impressions: Service Date/Time: Friday, July 21, 2017 17:35 - CONCLUSION: 1. Suspected osteomyelitis and discitis at the T1-T2 level. 2. Prominent increased signal and enhancement around the C1-C2 articulation and dens. This appears less prominent than it did on the prior exam. This could be secondary to hypertrophic change/inflammatory change. Apparently the patient has a history of rheumatoid. Infection cannot absolutely be ruled out but again these changes appear less prominent on the current exam than on than they did on the prior exam. 3. Suspected inflammatory change/infection at the T1-T2 level which will be more fully described in the thoracic spine MRI examination. 4. Mild disc bulges at the C3-C5 through C6-C7 levels without significant spinal stenosis. 5. Suspected hemangioma at the T3 level. Bipin Estrella MD PHYSICAL EXAMINATION GENERAL: No acute distress. HEENT: No icterus. Oropharynx no visible lesions. NECK: Mild stiffness. LUNGS: Clear breath sounds. HEART: Regular S1 and S2, without audible murmurs. ABDOMEN: Bowel sounds present. Soft. No tenderness. EXTREMITIES: No clubbing, cyanosis or edema. SKIN: No rash. NEUROLOGIC: No gross focal findings. PSYCH: Calm and cooperative. IMPRESSION Discitis, paravertebral and small epidural abscess Lumbar spine L5-S1. Staph aureus. Neurosurgery following. Suspected osteomyelitis at T1-2. Bacteremia staph aureus. Last blood culture with staph Epi - contamination. Repeat blood culture negative 2 days. RECOMMENDATIONS 1. Continue IV Ancef. 2. Follow blood cultures. Repeated 07/22. 3. No PIC until negative blood culture x 3 day. 4. Monitor clinical response. The patient will need arrangement for 8 weeks of IV antibiotics for treatment of this infection. Jay Mohan MD Jul 24, 2017 15:19
[2017-07-25 01:00] VITALS: BP 103/57; PULSE 81; RESP 18; TEMP 98.9; O2SAT 95
[2017-07-25] MEDS: MORPHINE SULFATE 60 MG CONTROLLED RELEASE TAB PO SCH ×3 (02:01→17:18)
[2017-07-25] MEDS: ceFAZolin 2 GM PREMIX 50 ML IV SCH ×3 (02:02→16:11)
[2017-07-25] MEDS: SODIUM CHLOR 0.9% 1000 ML INJ 1,000 ML IV SCH ×2 (03:05→20:52)
[2017-07-25 04:00] VITALS: BP 121/57; PULSE 97; RESP 20; TEMP 98.6; O2SAT 92
[2017-07-25] MEDS: CHLORHEXIDINE GLUCONATE 2 % 1 PACK (2 CLOTHS)(taper/protocol) TOPICAL SCH (04:00)
[2017-07-25] MEDS: INSULIN NovoLIN REGULAR SUPPLEMENTAL SCALE SQ SCH ×4 (04:00→22:24)
[2017-07-25] MEDS: HYDROmorphone HCL 4 MG TAB PO PRN ×2 (04:05→16:12)
[2017-07-25] MEDS: LEVOTHYROXINE SODIUM 25 MCG TAB PO SCH (06:41)
[2017-07-25] MEDS: LEVOTHYROXINE SODIUM 112 MCG TAB PO SCH (06:41)
[2017-07-25 07:25] LABS: AUTOMATED NEUTROPHIL # 4.5 TH/MM3 (1.8-7.7); BASOPHIL # 0.1 TH/MM3 (0-0.2); EOSINOPHIL # 0.1 TH/MM3 (0-0.4); EOSINOPHIL % 1.6 % (0.0-4.0); HEMATOCRIT 27.7 % (35.0-46.0); HEMO FLAGS DIFF FINAL; LYMPH % 22.6 % (9.0-44.0); LYMPHOCYTE # 1.6 TH/MM3 (1.0-4.8); MEAN CELL VOLUME 83.3 FL (80.0-100.0); MEAN CORPUSCULAR HEMOGLOBIN 27.6 PG (27.0-34.0); MEAN CORPUSCULAR HGB CONC 33.1 % (32.0-36.0); MONO % 10.3 % (0.0-8.0); NEUT % 64.5 % (16.0-70.0); PLATELET COUNT 385 TH/MM3 (150-450); RED BLOOD COUNT 3.32 MIL/MM3 (4.00-5.30)
[2017-07-25 08:15] LABS: BICARBONATE 27.6 MEQ/L (21.0-32.0); POTASSIUM 3.6 MEQ/L (3.5-5.1)
[2017-07-25 08:20] VITALS: BP 104/65; PULSE 85; RESP 18; TEMP 99.9; O2SAT 92
[2017-07-25] MEDS: SODIUM CHLORIDE 0.9% FLUSH 10 ML FLUSH IV FLUSH SCH ×2 (08:31→22:34)
[2017-07-25] MEDS: PANTOPRAZOLE SOD 40 MG DELAYED RELEASE TAB PO SCH (08:34)
[2017-07-25] MEDS: DOCUSATE SODIUM 50 MG/SENNA 8.6 MG TAB PO SCH ×2 (08:34→22:34)
[2017-07-25] MEDS: FOLIC ACID 1 MG TAB PO SCH (08:34)
[2017-07-25] MEDS: GABAPENTIN 100 MG CAP PO SCH ×3 (08:34→17:18)
[2017-07-25] MEDS: LACTOBACILLUS ACIDOPHILUS TAB PO SCH ×3 (08:34→17:18)
[2017-07-25] MEDS: VANCOMYCIN 1,000 MG/NS 250 ML IV SCH ×4 (08:35→22:16)
[2017-07-25] MEDS ORDERED: METHOTREXATE 2.5 MG TAB PO SCH (09:00)
--- NOTE | 2017-07-25 09:21 | HHI.PR ---
Subjective Remarks In bed, appears sleepy. No fever or chills. No n/v/d/c. Denies chest pain or sob. Plan to DC to SNF with IV abx Objective Vitals Vital Signs Date Time Temp Pulse Resp B/P (MAP) Pulse Ox O2 Delivery O2 Flow Rate FiO2 07/25/17 08:20 99.9 85 18 104/65 (78) 92 07/25/17 04:00 98.6 97 20 121/57 (78) 92 07/25/17 01:00 98.9 81 18 103/57 (72) 95 07/24/17 20:00 99.4 95 18 109/62 (78) 100 07/24/17 18:00 96 07/24/17 16:00 98.5 85 16 127/69 (88) 07/24/17 16:00 95 07/24/17 14:00 89 07/24/17 12:00 98.5 80 16 117/94 (102) 92 07/24/17 12:00 89 07/24/17 11:18 16 07/24/17 10:00 93 I/O 07/24/17 07/24/17 07/24/17 07/25/17 07/25/17 07/25/17 07:00 15:00 23:00 07:00 15:00 23:00 Intake Total 200 ml 360 ml Output Total 1500 ml 700 ml Balance -1300 ml -340 ml Intake Oral 200 ml 360 ml Output Urine Total 1500 ml 700 ml # Voids 6 # Bowel Movements 0 1 1 Result Diagram: 07/25/1719 07/25/17 0619 Imaging Last Impressions Lumbar Spine MRI 07/21/17 0000 Signed Impressions: Service Date/Time: Friday, July 21, 2017 17:35 - CONCLUSION: 1. Suspected discitis at the L5-S1 level with abnormal signal at the L5 vertebral body and upper sacrum likely related to osteomyelitis. There is prominent enhancement in the soft tissues surrounding the L5-S1 level including the prevertebral soft tissues and the anterior epidural space. These changes were present previously. 2. Loss of disc space height and mild bulging at the L2-L3 level without significant stenosis. Bipin Estrella MD Cervical Spine MRI 07/21/17 0000 Signed Impressions: Service Date/Time: Friday, July 21, 2017 17:35 - CONCLUSION: 1. Suspected osteomyelitis and discitis at the T1-T2 level. 2. Prominent increased signal and enhancement around the C1-C2 articulation and dens. This appears less prominent than it did on the prior exam. This could be secondary to hypertrophic change/inflammatory change. Apparently the patient has a history of rheumatoid. Infection cannot absolutely be ruled out but again these changes appear less prominent on the current exam than on than they did on the prior exam. 3. Suspected inflammatory change/infection at the T1-T2 level which will be more fully described in the thoracic spine MRI examination. 4. Mild disc bulges at the C3-C5 through C6-C7 levels without significant spinal stenosis. 5. Suspected hemangioma at the T3 level. Bipin Estrella MD Thoracic Spine MRI 07/14/17 0000 Signed Impressions: Service Date/Time: Friday, July 14, 2017 17:15 - CONCLUSION: 1. See the MRI of the cervical spine and lumbar spine reported separately. 2. Scoliotic curvature. 3. No acute abnormality. Ruperto Pozo Jr., MD Needle Biopsy/Aspiration X-Ray 07/14/17 0000 Signed Impressions: Service Date/Time: Friday, July 14, 2017 15:40 - CONCLUSION: Uncomplicated FNA of the lumbosacral disc as above. Edvin Cabrera MD Objective Remarks GENERAL: This is a well-nourished, well-developed female patient, lying in bed with generalized pain. SKIN: The sacral/gluteal area there is some erythema and a tiny skin tear. CARDIOVASCULAR: Regular rate and rhythm without murmurs, gallops, or rubs. RESPIRATORY: Clear to auscultation. Breath sounds equal bilaterally. No wheezes , rales, or rhonchi. GASTROINTESTINAL: Abdomen soft, non-tender, nondistended. No guarding. MUSCULOSKELETAL: Extremities without clubbing, cyanosis, or edema. No joint tenderness, effusion, or edema noted. 5 out of 5 upper and lower extremity muscle strength. A/P Problem List: (1) Rheumatoid arthritis ICD Code: M06.9 - Rheumatoid arthritis, unspecified (2) Chronic neck and back pain ICD Code: M54.2 - Cervicalgia; M54.9 - Dorsalgia, unspecified (3) Weakness ICD Code: R53.1 - Weakness Assessment and Plan Mrs. Shine is a 47-year-old female patient with a known medical history of rheumatoid arthritis who presented to the ED with complaints of worsening neck and back pain and increasing weakness. Neuro/Psych/MSK/RHEUM: L5-S1 diskitis with paravertebral inflammation and small epidural abscess. Suspected osteomyelitis in T1-T2 level. Rheumatoid arthritis Chronic narcotic use Muscle spasm. Add Flexeril Patient is currently on morphine sulfate 60 mg every 8 hours and hydromorphone 8 mg by mouth twice a day/home medications. Patient states she takes usually hydromorphone 3 times daily at home Hydromorphone 1 mg every 4 hours when necessary breakthrough pain Currently on gabapentin 100 mg 3 times a day Resume methotrexate 3 mg every Thursday rheumatoid arthritis. 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 Similar findings on 07/21 MRI spine Followed by neurosurgery/Dr. New. Attilaay to discharge from their standpoint ID: Persistent staph aureus bacteremia Started cefazolin 2 g IV every 8 hours 07/22/17 Present vancomycin 2 g IV every [address] Mohan/infectious disease following Pertinent cultures 07/22 - blood cultures 2 - pending 07/20 - blood cultures 2 - positive cocci 07/16 - blood cultures 2 - staph aureus 07/14 - blood cultures 2 - oxacillin sensitive staph aureus 07/13 - blood cultures 2 - oxacillin sensitive staph aureus Noted TT echocardiogram no signs of endocarditis 07/24 CV: Patient is currently normal saline at 84 cc an hour. No indication for vasopressors and/or antihypertensives at this time 2-D echocardiogram 07/16 revealed EF 60-65%. Trace TR. PAP 30 mmHg no signs of infective endocarditis Resp: Nasal cannula if indicated to maintain saturations greater than or equal to 90% Albuterol nebs every 2 hours. Dyspnea GI: Regular diet Pantoprazole for GI prophylaxis Docusate sodium/senna 1 tablet twice a day for bowel regimen : No indication for Art catheter Endo: Hypothyroidism Increase L-thyroxine to 137 g daily. TSH was 4.9. Free T4/T3 pending No indication for sliding scale insulin Renal: Creatinine currently within normal limits BMP in a.m.Monitor kidney indices Heme: Normocytic anemia Repeat CBC in AM. Monitor trending Hypopotassemia 30 Vicente KCl 1 now. Recheck in a.m. Access - Utilize peripheral IV. Central line if indicated Prophylaxis - GI - pantoprazole - DVT - C/heparin subcutaneous Discussed with the patient, nurse Plan to DC to SNF on Thursday as needs authorization for IV antibiotic from [facility]. Case management is ff for DC plan. Patient will have a PICC line placed tomorrow 07/26. Repeat Blood cx NTD Raina Griffin MD Jul 25, 2017 09:21
--- NOTE | 2017-07-25 09:24 | HHI.FF ---
Face to Face Verification Diagnosis: (1) Chronic neck and back pain (2) Weakness (3) Discitis of lumbosacral region (4) Rheumatoid arthritis Physical Therapy Order: Evaluate and Treat Home Health Nursing Order: Medical education Signs/symptoms of disease process Medication education-adverse effect Nursing assessment with vital signs IV medication administration I have seen patient Barbara Shine on 07/25/17. My clinical findings support the need for the requested home health care services because: Ltd mobility - disease progression I certify that my clinical findings support that this patient is homebound because: Post-op weakness Raina Griffin MD Jul 25, 2017 09:24
--- NOTE | 2017-07-25 09:25 | HHI.DS ---
Discharge Summary Admission Date Jul 13, 2017 at 16:58 Discharge Date: Jul 27, 2017 Admitting Diagnosis LUMBAR DISCITIS (1) Rheumatoid arthritis ICD Code: M06.9 - Rheumatoid arthritis, unspecified Diagnosis: Principal (2) Chronic neck and back pain ICD Code: M54.2 - Cervicalgia; M54.9 - Dorsalgia, unspecified Diagnosis: Secondary (3) Weakness ICD Code: R53.1 - Weakness Diagnosis: Secondary Procedures none Brief History - From Admission Written by Alem Reis, acting as scribe for Dr. Vaughan on 07/13/17 at 17:26. Mrs. Shine is a 47-year-old female patient with a known medical history of rheumatoid arthritis who presented to the ED with complaints of worsening neck and back pain and increasing weakness. Patient reports previous admission to hospital in May with similar symptoms. Since then patient has been taking methotrexate, steroids and pain medication with minimal relief. Patient states she has been unable to care for herself due to the worsening pain and increasing weakness, with having to perform all of her ADLs. She has developed a sacrum ulcer secondary to immobility for the past couple months. Subjective fevers have been reported. Denies any recent chills, cough, shortness of breath, abdominal pain, nausea, vomiting, diarrhea or dysuria. Cervical and lumbar spine images reviewed showing L5-S1 discitis with perivertebral and epidural abscess. Blood cultures drawn and pending. IV antibiotics started. Neurosurgery consulted, awaiting further recommendations and input. CBC/BMP: 07/25/17 0619 07/25/17 0619 Significant Findings Laboratory Tests Test 07/22/17 16:50 07/22/17 16:59 07/23/17 05:00 07/23/17 06:32 White Blood Count 12.6 TH/MM3 (4.0-11.0) Red Blood Count 3.69 MIL/MM3 (4.00-5.30) 3.26 MIL/MM3 (4.00-5.30) Hemoglobin 10.0 GM/DL (11.6-15.3) 8.9 GM/DL (11.6-15.3) Hematocrit 31.0 % (35.0-46.0) 27.4 % (35.0-46.0) Monocytes (%) (Auto) 9.2 % (0.0-8.0) 9.2 % (0.0-8.0) Neutrophils # (Auto) 7.9 TH/MM3 (1.8-7.7) Monocytes # (Auto) 1.2 TH/MM3 (0-0.9) 1.0 TH/MM3 (0-0.9) Sodium Level 135 MEQ/L (136-145) Blood Urea Nitrogen 3 MG/DL (7-18) Random Glucose 143 MG/DL (74-106) Calcium Level 8.3 MG/DL (8.5-10.1) Potassium Level 3.4 MEQ/L (3.5-5.1) Thyroid Stimulating Hormone 3rd Gen 4.920 uIU/ML (0.358-3.740) Test 07/24/17 05:50 07/24/17 10:55 07/25/17 06:19 Red Blood Count 3.46 MIL/MM3 (4.00-5.30) 3.32 MIL/MM3 (4.00-5.30) Hemoglobin 9.7 GM/DL (11.6-15.3) 9.2 GM/DL (11.6-15.3) Hematocrit 28.8 % (35.0-46.0) 27.7 % (35.0-46.0) Monocytes (%) (Auto) 10.3 % (0.0-8.0) 10.3 % (0.0-8.0) Erythrocyte Sedimentation Rate 39 mm/hr (0-20) Blood Urea Nitrogen 4 MG/DL (7-18) 3 MG/DL (7-18) Albumin 1.8 GM/DL (3.4-5.0) Aspartate Amino Transf (AST/SGOT) 11 U/L (15-37) Alanine Aminotransferase (ALT/SGPT) 9 U/L (10-53) Total Creatine Kinase 8 U/L (26-192) C-Reactive Protein 6.41 MG/DL (0.00-0.30) Free Thyroxine 1.60 NG/DL (0.76-1.46) Free Triiodothyronine (T3) pg/dL 1.79 PG/ML (2.18-3.98) Vancomycin Level Trough 14.0 MCG/ML (5.0-10.0) Calcium Level 8.3 MG/DL (8.5-10.1) Imaging Last Impressions Lumbar Spine MRI 07/21/17 0000 Signed Impressions: Service Date/Time: Friday, July 21, 2017 17:35 - CONCLUSION: 1. Suspected discitis at the L5-S1 level with abnormal signal at the L5 vertebral body and upper sacrum likely related to osteomyelitis. There is prominent enhancement in the soft tissues surrounding the L5-S1 level including the prevertebral soft tissues and the anterior epidural space. These changes were present previously. 2. Loss of disc space height and mild bulging at the L2-L3 level without significant stenosis. Bipin Estrella MD Cervical Spine MRI 07/21/17 0000 Signed Impressions: Service Date/Time: Friday, July 21, 2017 17:35 - CONCLUSION: 1. Suspected osteomyelitis and discitis at the T1-T2 level. 2. Prominent increased signal and enhancement around the C1-C2 articulation and dens. This appears less prominent than it did on the prior exam. This could be secondary to hypertrophic change/inflammatory change. Apparently the patient has a history of rheumatoid. Infection cannot absolutely be ruled out but again these changes appear less prominent on the current exam than on than they did on the prior exam. 3. Suspected inflammatory change/infection at the T1-T2 level which will be more fully described in the thoracic spine MRI examination. 4. Mild disc bulges at the C3-C5 through C6-C7 levels without significant spinal stenosis. 5. Suspected hemangioma at the T3 level. Bipin Estrella MD Thoracic Spine MRI 07/14/17 0000 Signed Impressions: Service Date/Time: Friday, July 14, 2017 17:15 - CONCLUSION: 1. See the MRI of the cervical spine and lumbar spine reported separately. 2. Scoliotic curvature. 3. No acute abnormality. Ruperto Pozo Jr., MD Needle Biopsy/Aspiration X-Ray 07/14/17 0000 Signed Impressions: Service Date/Time: Friday, July 14, 2017 15:40 - CONCLUSION: Uncomplicated FNA of the lumbosacral disc as above. Edvin Cabrera MD PE at Discharge GENERAL: This is a well-nourished, well-developed female patient, lying in bed with generalized pain. SKIN: The sacral/gluteal area there is some erythema and a tiny skin tear. CARDIOVASCULAR: Regular rate and rhythm without murmurs, gallops, or rubs. RESPIRATORY: Clear to auscultation. Breath sounds equal bilaterally. No wheezes , rales, or rhonchi. GASTROINTESTINAL: Abdomen soft, non-tender, nondistended. No guarding. MUSCULOSKELETAL: Extremities without clubbing, cyanosis, or edema. No joint tenderness, effusion, or edema noted. 5 out of 5 upper and lower extremity muscle strength. Hospital Course Mrs. Shine is a 47-year-old female patient with a known medical history of rheumatoid arthritis who presented to the ED with complaints of worsening neck and back pain and increasing weakness. Neuro/Psych/MSK/RHEUM: L5-S1 diskitis with paravertebral inflammation and small epidural abscess. Suspected osteomyelitis in T1-T2 level. Rheumatoid arthritis Chronic narcotic use Muscle spasm. Add Flexeril Patient is currently on morphine sulfate 60 mg every 8 hours and hydromorphone 8 mg by mouth twice a day/home medications. Patient states she takes usually hydromorphone 3 times daily at home Hydromorphone 1 mg every 4 hours when necessary breakthrough pain Currently on gabapentin 100 mg 3 times a day Resume methotrexate 3 mg every Thursday rheumatoid arthritis. 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 Similar findings on 07/21 MRI spine Followed by neurosurgery/Dr. New. Khadar to discharge from their standpoint ID: Persistent staph aureus bacteremia Started cefazolin 2 g IV every 8 hours 07/22/17 Present vancomycin 2 g IV every [address] Mohan/infectious disease following Pertinent cultures 07/22 - blood cultures 2 - pending 07/20 - blood cultures 2 - positive cocci 07/16 - blood cultures 2 - staph aureus 07/14 - blood cultures 2 - oxacillin sensitive staph aureus 07/13 - blood cultures 2 - oxacillin sensitive staph aureus Noted TT echocardiogram no signs of endocarditis 07/24 CV: Patient is currently normal saline at 84 cc an hour. No indication for vasopressors and/or antihypertensives at this time 2-D echocardiogram 07/16 revealed EF 60-65%. Trace TR. PAP 30 mmHg no signs of infective endocarditis Resp: Nasal cannula if indicated to maintain saturations greater than or equal to 90% Albuterol nebs every 2 hours. Dyspnea GI: Regular diet Pantoprazole for GI prophylaxis Docusate sodium/senna 1 tablet twice a day for bowel regimen : No indication for Art catheter Endo: Hypothyroidism Increase L-thyroxine to 137 g daily. TSH was 4.9. Free T4/T3 pending No indication for sliding scale insulin Renal: Creatinine currently within normal limits BMP in a.m.Monitor kidney indices Heme: Normocytic anemia Repeat CBC in AM. Monitor trending Hypopotassemia 30 Vicente KCl 1 now. Recheck in a.m. Access - Utilize peripheral IV. Central line if indicated Prophylaxis - GI - pantoprazole - DVT - C/heparin subcutaneous Discussed with the patient, nurse Patient improving. Plan to DC to SNF on Thursday as needs authorization for IV antibiotic from [facility]. Patient is accepted by [facility] rehab. Patient had PICC line placed 07/26. Repeat blood cx NTD. Antibiotic at DC Cefazolin 2 grams IV q 8 hours Stop Treatment: Sep 14, 2017. Pt Condition on Discharge: Stable Discharge Disposition: Disch w/ Home Health Serv Discharge Time: > 30 minutes Discharge Instructions DIET: Follow Instructions for: As Tolerated, No Restrictions Activities you can perform: Regular-No Restrictions Follow up Referrals: Appointment for Follow Up - [address] Winnie Herman(ID) Neurosurgery - 1 Week with García New MD PCP Follow-up - 2-3 Days New Medications: Gabapentin (Gabapentin) 100 Mg Cap 100 MG PO TID for neuropathy , #90 CAP Lactobacillus Acidophilus (Acidophilus/l-Sporogenes) 35 Million Cell-25 Million Cell Tab 1 TAB PO TID for probiotic, #30 TAB Sennosides-Docusate Sodium (Gnp Senna Plus 8.6-50 mg) 8.6 Mg-50 Mg Tab 1 TAB PO BID for Constipation, #60 TAB Continued Medications: Alendronate (Fosamax) 70 Mg Tab 70 MG PO Q7D for Osteoporosis Treatment, #4 TAB 0 Refills Certolizumab Pegol Inj (Cimzia (2 vial) Kit Inj) 400 Mg (200 Mg X 2) Kit 400 MG SQ Q14D, KIT Administer 2 syringes (400 mg) to separate sites. Folic Acid (Folic Acid) 1 Mg Tablet 1 MG PO DAILY Hydromorphone (Dilaudid) 8 Mg Tab 8 MG PO Q12HR PRN for Pain Management, #10 TAB 0 Refills (This prescription has been renewed) Levothyroxine (Synthroid) 125 Mcg Tab 125 MCG PO DAILY for Thyroid, #30 TAB 0 Refills Methotrexate (Methotrexate) 2.5 Mg Tab 3 TAB PO Q7D, TAB 0 Refills Morphine Sulfate CR (Morphine Sulfate CR) 60 Mg Tab 60 MG PO Q8HR for pain managment , #10 MG (This prescription has been renewed) Prednisone (Prednisone) 20 Mg Tab 50 MG PO BID, #10 TAB 0 Refills Take 40 mg (2 tablets) daily for 5 days Raina Griffin MD Jul 25, 2017 09:25
[2017-07-25] MEDS: HYDROmorphone HCL PF 1 MG/ML VIAL IV PUSH PRN ×2 (14:11→22:30)
[2017-07-25 14:13] VITALS: BP 107/64; PULSE 83; RESP 18; TEMP 98.7; O2SAT 94
[2017-07-25] MEDS ORDERED: DILA8TAB4 PO (14:42)
[2017-07-25] MEDS ORDERED: GABA100C4 PO (14:42)
[2017-07-25] MEDS ORDERED: MORP60TA24 PO (14:42)
[2017-07-25] MEDS ORDERED: PERI PO (14:42)
[2017-07-25] MEDS ORDERED: LACT PO (14:42)
[2017-07-25 18:42] VITALS: BP 111/74; PULSE 85; RESP 18; TEMP 98.4; O2SAT 99
[2017-07-25 20:00] VITALS: BP 114/70; PULSE 106; RESP 20; TEMP 99.1; O2SAT 96
[2017-07-25] MEDS ORDERED: PHARMACY ORDERED LAB ONE (20:45)
[2017-07-26] MEDS: ceFAZolin 2 GM PREMIX 50 ML IV SCH ×3 (00:42→16:19)
[2017-07-26] MEDS: MORPHINE SULFATE 60 MG CONTROLLED RELEASE TAB PO SCH ×3 (02:00→17:21)
[2017-07-26] MEDS: SODIUM CHLOR 0.9% 1000 ML INJ 1,000 ML IV SCH ×3 (02:55→23:48)
[2017-07-26] MEDS: HYDROmorphone HCL PF 1 MG/ML VIAL IV PUSH PRN (03:00)
[2017-07-26] MEDS: CHLORHEXIDINE GLUCONATE 2 % 1 PACK (2 CLOTHS)(taper/protocol) TOPICAL SCH (04:00)
[2017-07-26] MEDS: INSULIN NovoLIN REGULAR SUPPLEMENTAL SCALE SQ SCH ×4 (04:00→20:06)
[2017-07-26] MEDS: LEVOTHYROXINE SODIUM 112 MCG TAB PO SCH (06:26)
[2017-07-26] MEDS: LEVOTHYROXINE SODIUM 25 MCG TAB PO SCH (06:27)
[2017-07-26 08:03] VITALS: BP 93/56; PULSE 76; RESP 17; TEMP 96.6; O2SAT 94
[2017-07-26] MEDS: DOCUSATE SODIUM 50 MG/SENNA 8.6 MG TAB PO SCH ×2 (09:00→21:00)
[2017-07-26] MEDS: SODIUM CHLORIDE 0.9% FLUSH 10 ML FLUSH IV FLUSH SCH ×2 (09:00→21:00)
[2017-07-26] MEDS: GABAPENTIN 100 MG CAP PO SCH ×3 (09:39→17:20)
[2017-07-26] MEDS: LACTOBACILLUS ACIDOPHILUS TAB PO SCH ×3 (09:39→17:20)
[2017-07-26] MEDS: PANTOPRAZOLE SOD 40 MG DELAYED RELEASE TAB PO SCH (09:39)
[2017-07-26] MEDS: FOLIC ACID 1 MG TAB PO SCH (09:39)
[2017-07-26] MEDS: VANCOMYCIN 1,000 MG/NS 250 ML IV SCH ×4 (09:41→22:35)
[2017-07-26] MEDS: HYDROmorphone HCL 4 MG TAB PO PRN ×2 (10:20→22:30)
[2017-07-26 12:29] VITALS: BP 95/56; PULSE 90; RESP 18; TEMP 97.7; O2SAT 97
--- NOTE | 2017-07-26 13:30 | HHI.PR ---
Subjective Remarks In bed, she has more pain now in her right hip. No fever or chills. She wants to go home with antibiotic if possible and not to the [facility]. Eating fairly well, no nausea or vomiting. No diarrhea. Objective Vitals Vital Signs Date Time Temp Pulse Resp B/P (MAP) Pulse Ox O2 Delivery O2 Flow Rate FiO2 07/26/17 12:29 97.7 90 18 95/56 (69) 97 07/26/17 08:03 96.6 76 17 93/56 (68) 94 07/25/17 20:00 99.1 106 20 114/70 (85) 96 07/25/17 18:42 98.4 85 18 111/74 (86) 99 07/25/17 14:13 98.7 83 18 107/64 (78) 94 I/O 07/25/17 07/25/17 07/25/17 07/26/17 07/26/17 07/26/17 07:00 15:00 23:00 07:00 15:00 23:00 Intake Total 300 ml Balance 300 ml IV Total 300 ml # Voids 6 4 # Bowel Movements 1 Result Diagram: 07/25/17 0619 07/26/17 0802 Imaging Last Impressions Lumbar Spine MRI 07/21/17 0000 Signed Impressions: Service Date/Time: Friday, July 21, 2017 17:35 - CONCLUSION: 1. Suspected discitis at the L5-S1 level with abnormal signal at the L5 vertebral body and upper sacrum likely related to osteomyelitis. There is prominent enhancement in the soft tissues surrounding the L5-S1 level including the prevertebral soft tissues and the anterior epidural space. These changes were present previously. 2. Loss of disc space height and mild bulging at the L2-L3 level without significant stenosis. Bipin Estrella MD Cervical Spine MRI 07/21/17 0000 Signed Impressions: Service Date/Time: Friday, July 21, 2017 17:35 - CONCLUSION: 1. Suspected osteomyelitis and discitis at the T1-T2 level. 2. Prominent increased signal and enhancement around the C1-C2 articulation and dens. This appears less prominent than it did on the prior exam. This could be secondary to hypertrophic change/inflammatory change. Apparently the patient has a history of rheumatoid. Infection cannot absolutely be ruled out but again these changes appear less prominent on the current exam than on than they did on the prior exam. 3. Suspected inflammatory change/infection at the T1-T2 level which will be more fully described in the thoracic spine MRI examination. 4. Mild disc bulges at the C3-C5 through C6-C7 levels without significant spinal stenosis. 5. Suspected hemangioma at the T3 level. Bipin Estrella MD Thoracic Spine MRI 07/14/17 0000 Signed Impressions: Service Date/Time: Friday, July 14, 2017 17:15 - CONCLUSION: 1. See the MRI of the cervical spine and lumbar spine reported separately. 2. Scoliotic curvature. 3. No acute abnormality. Ruperto Pozo Jr., MD Needle Biopsy/Aspiration X-Ray 07/14/17 0000 Signed Impressions: Service Date/Time: Friday, July 14, 2017 15:40 - CONCLUSION: Uncomplicated FNA of the lumbosacral disc as above. Edvin Cabrera MD Objective Remarks GENERAL: This is a well-nourished, well-developed female patient, lying in bed with generalized pain. SKIN: The sacral/gluteal area there is some erythema and a tiny skin tear. CARDIOVASCULAR: Regular rate and rhythm without murmurs, gallops, or rubs. RESPIRATORY: Clear to auscultation. Breath sounds equal bilaterally. No wheezes , rales, or rhonchi. GASTROINTESTINAL: Abdomen soft, non-tender, nondistended. No guarding. MUSCULOSKELETAL: Extremities without clubbing, cyanosis, or edema. No joint tenderness, effusion, or edema noted. 5 out of 5 upper and lower extremity muscle strength. A/P Problem List: (1) Rheumatoid arthritis ICD Code: M06.9 - Rheumatoid arthritis, unspecified (2) Chronic neck and back pain ICD Code: M54.2 - Cervicalgia; M54.9 - Dorsalgia, unspecified (3) Weakness ICD Code: R53.1 - Weakness Assessment and Plan Mrs. Shine is a 47-year-old female patient with a known medical history of rheumatoid arthritis who presented to the ED with complaints of worsening neck and back pain and increasing weakness. Neuro/Psych/MSK/RHEUM: L5-S1 diskitis with paravertebral inflammation and small epidural abscess. Suspected osteomyelitis in T1-T2 level. Rheumatoid arthritis Chronic narcotic use Muscle spasm. Add Flexeril Patient is currently on morphine sulfate 60 mg every 8 hours and hydromorphone 8 mg by mouth twice a day/home medications. Patient states she takes usually hydromorphone 3 times daily at home Hydromorphone 1 mg every 4 hours when necessary breakthrough pain Currently on gabapentin 100 mg 3 times a day Resume methotrexate 3 mg every Thursday rheumatoid arthritis. 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 Similar findings on 07/21 MRI spine Followed by neurosurgery/Dr. New. Okay to discharge from their standpoint ID: Persistent staph aureus bacteremia Started cefazolin 2 g IV every 8 hours 07/22/17 Present vancomycin 2 g IV every [address] Mohan/infectious disease following Pertinent cultures 07/22 - blood cultures 2 - pending 07/20 - blood cultures 2 - positive cocci 07/16 - blood cultures 2 - staph aureus 07/14 - blood cultures 2 - oxacillin sensitive staph aureus 07/13 - blood cultures 2 - oxacillin sensitive staph aureus Noted TT echocardiogram no signs of endocarditis 07/24 CV: Patient is currently normal saline at 84 cc an hour. No indication for vasopressors and/or antihypertensives at this time 2-D echocardiogram 07/16 revealed EF 60-65%. Trace TR. PAP 30 mmHg no signs of infective endocarditis Resp: Nasal cannula if indicated to maintain saturations greater than or equal to 90% Albuterol nebs every 2 hours. Dyspnea GI: Regular diet Pantoprazole for GI prophylaxis Docusate sodium/senna 1 tablet twice a day for bowel regimen : No indication for Art catheter Endo: Hypothyroidism Increase L-thyroxine to 137 g daily. TSH was 4.9. Free T4/T3 pending No indication for sliding scale insulin Renal: Creatinine currently within normal limits BMP in a.m.Monitor kidney indices Heme: Normocytic anemia Repeat CBC in AM. Monitor trending Hypopotassemia 30 Vicente KCl 1 now. Recheck in a.m. Access - Utilize peripheral IV. Central line if indicated Prophylaxis - GI - pantoprazole - DVT - C/heparin subcutaneous Discussed with the patient, nurse Plan to DC to SNF on Thursday as needs authorization for IV antibiotic from [facility]. Case management is ff for DC plan. Patient will have a PICC line placed 07/26. Repeat blood cx NTD. Raina Griffin MD Jul 26, 2017 13:30
--- NOTE | 2017-07-26 13:49 | RADRPT ---
EXAM DATE/TIME: 07/26/2017 13:25 [place] COMPARISON: No previous studies available for comparison. INDICATIONS : PICC Line placement MEDICAL HISTORY : Rheumatoid arthritis. SURGICAL HISTORY : PICC LINE ENCOUNTER: Initial ACUITY: 1 day PAIN SCORE: 10/10 LOCATION: Right chest FINDINGS: Single AP view of the chest. Right-sided PICC line is in place with the tip at the cavoatrial junctio n. The lungs are clear. Cardiomediastinal silhouette within normal limits. No evidence of pleural eff usion or pneumothorax. CONCLUSION: 1. PICC line in place with the tip at the cavoatrial junction. 2. No acute cardiopulmonary disease identified. Chad Mart MD on July 26, 2017 at 13:41 Board Certified Radiologist. This report was verified electronically.
[2017-07-26 17:47] VITALS: BP 98/60; PULSE 88; RESP 18; TEMP 98.1; O2SAT 97
[2017-07-26 20:00] VITALS: BP 86/51; PULSE 91; RESP 18; TEMP 98; O2SAT 96
[2017-07-26] MEDS ORDERED: PHARMACY ORDERED LAB ONE (20:45)
[2017-07-27] VITALS: BP 92/58; PULSE 89; RESP 18; TEMP 98.1; O2SAT 94
[2017-07-27] MEDS: ceFAZolin 2 GM PREMIX 50 ML IV SCH ×4 (00:49→23:11)
[2017-07-27] MEDS: MORPHINE SULFATE 60 MG CONTROLLED RELEASE TAB PO SCH ×3 (02:57→17:30)
[2017-07-27 04:00] VITALS: BP 103/84; PULSE 63; RESP 18; TEMP 97.4; O2SAT 96
[2017-07-27] MEDS: CHLORHEXIDINE GLUCONATE 2 % 1 PACK (2 CLOTHS)(taper/protocol) TOPICAL SCH (04:00)
[2017-07-27] MEDS: INSULIN NovoLIN REGULAR SUPPLEMENTAL SCALE SQ SCH ×4 (04:00→21:00)
[2017-07-27] MEDS: LEVOTHYROXINE SODIUM 25 MCG TAB PO SCH (05:25)
[2017-07-27] MEDS: LEVOTHYROXINE SODIUM 112 MCG TAB PO SCH (05:25)
[2017-07-27] MEDS: HYDROmorphone HCL PF 1 MG/ML VIAL IV PUSH PRN ×3 (06:45→20:58)
[2017-07-27 08:03] VITALS: BP 101/53; PULSE 74; RESP 20; TEMP 97.3; O2SAT 94
[2017-07-27] MEDS: DOCUSATE SODIUM 50 MG/SENNA 8.6 MG TAB PO SCH ×2 (09:00→20:58)
[2017-07-27] MEDS: VANCOMYCIN 1,000 MG/NS 250 ML IV SCH ×2 (09:07)
[2017-07-27] MEDS: LACTOBACILLUS ACIDOPHILUS TAB PO SCH ×3 (09:07→17:30)
[2017-07-27] MEDS: GABAPENTIN 100 MG CAP PO SCH ×3 (09:08→17:30)
[2017-07-27] MEDS: PANTOPRAZOLE SOD 40 MG DELAYED RELEASE TAB PO SCH (09:08)
[2017-07-27] MEDS: FOLIC ACID 1 MG TAB PO SCH (09:08)
[2017-07-27] MEDS: SODIUM CHLORIDE 0.9% FLUSH 10 ML FLUSH IV FLUSH SCH ×2 (09:09→20:59)
--- NOTE | 2017-07-27 09:29 | HHI.FF ---
Infusion Therapy Location of Infusion Therapy: [facility] Infusion Therapy Order Patient Information Patient Weight 45 kg Diagnosis: (1) Discitis of lumbosacral region Coded Allergies: penicillin G (Unverified Allergy, Severe, 07/13/17) unknown reaction Administer Medication Cefazolin 2 grams IV q 8 hours Stop Treatment: Sep 14, 2017 Additional Information Venous access: PICC Line Additional Instructions [x] Peripheral flush and dressing changes per protocol [x] Implanted port and central online marketing specialist: * Implanted port: 10 ml Normal Saline followed by 5 ml Heparin 100 units/ml Heparin flush after each use and monthly to maintain. [] May leave port accessed during therapy. [] May leave peripheral site accessed for duration of therapy. [x] If patient has SOB or respiratory distress, check oxygen saturation. If less than 90% or clinical signs of respiratory distress, administer oxygen at 2 L/min. via nasal cannula and notify physician. [x] Anaphylaxis/Reaction orders: * Stop infusion. * Keep IV line open with saline flush. * Notify physician. * Monitor vital signs every 15 minutes until symptoms resolve. * Check Oxygen saturation; Oxygen at 2 L/min. via nasal cannula if less than 90% or clinical signs of respiratory distress. * Administer diphenhydramine (Benadryl) 25 mg IV STAT, (unless patient has received as pre-med). May repeat once, if necessary. * Solu-Cortef 250 mg IVP over 30-60 seconds, use 100 mg vials for each dissolution. * Epinephrine (1mg/1 ml) 0.3 mg subcutaneously or IVP now with any signs of respiratory distress. * Check with physician for new additional pre-med orders if patient is re- challenged or re-treated. [x] May remove PICC line when treatment complete, after confirming with Physician. [x] If the patient is admitted to the hospital, the ED, or transferred via [facility] , complete transfer form including medication reconciliation order sheet. Laboratory Tests Weekly Labs: BMP, CRP, SED Rate Additional Information Follow up with Infectious disease Dr. Herman in 1 week. Fax labs to Dr Herman [phone] Also fax Labs to Dr Mohan [phone]. Jay Mohan MD Jul 27, 2017 09:29
[2017-07-27] MEDS: HYDROmorphone HCL 4 MG TAB PO PRN ×2 (10:42→23:12)
--- NOTE | 2017-07-27 11:11 | HHI.PR ---
Subjective Remarks Patient is upset as she can't go home with IV antibiotics. No fever or chills. No n/v/d/c. Objective Vitals Vital Signs Date Time Temp Pulse Resp B/P (MAP) Pulse Ox O2 Delivery O2 Flow Rate FiO2 07/27/17 08:03 97.3 74 20 101/53 (69) 94 07/27/17 04:00 97.4 63 18 103/84 (90) 96 07/27/17 00:00 98.1 89 18 92/58 (69) 94 07/26/17 20:00 98.0 91 18 86/51 (63) 96 07/26/17 17:47 98.1 88 18 98/60 (73) 97 07/26/17 12:29 97.7 90 18 95/56 (69) 97 I/O 07/26/17 07/26/17 07/26/17 07/27/17 07/27/17 07/27/17 07:00 15:00 23:00 07:00 15:00 23:00 Intake Total 300 ml 570 ml 300 ml 971 ml Balance 300 ml 570 ml 300 ml 971 ml Intake Oral 520 ml IV Total 300 ml 50 ml 300 ml 971 ml # Voids 4 4 15 1 # Bowel Movements 2 Result Diagram: 07/25/17 0619 07/26/17 0802 Imaging Last Impressions Chest X-Ray 07/26/17 0000 Signed Impressions: Service Date/Time: Wednesday, July 26, 2017 13:25 - CONCLUSION: 1. PICC line in place with the tip at the cavoatrial junction. 2. No acute cardiopulmonary disease identified. Chad Mart MD Lumbar Spine MRI 07/21/17 0000 Signed Impressions: Service Date/Time: Friday, July 21, 2017 17:35 - CONCLUSION: 1. Suspected discitis at the L5-S1 level with abnormal signal at the L5 vertebral body and upper sacrum likely related to osteomyelitis. There is prominent enhancement in the soft tissues surrounding the L5-S1 level including the prevertebral soft tissues and the anterior epidural space. These changes were present previously. 2. Loss of disc space height and mild bulging at the L2-L3 level without significant stenosis. Bipin Estrella MD Cervical Spine MRI 07/21/17 0000 Signed Impressions: Service Date/Time: Friday, July 21, 2017 17:35 - CONCLUSION: 1. Suspected osteomyelitis and discitis at the T1-T2 level. 2. Prominent increased signal and enhancement around the C1-C2 articulation and dens. This appears less prominent than it did on the prior exam. This could be secondary to hypertrophic change/inflammatory change. Apparently the patient has a history of rheumatoid. Infection cannot absolutely be ruled out but again these changes appear less prominent on the current exam than on than they did on the prior exam. 3. Suspected inflammatory change/infection at the T1-T2 level which will be more fully described in the thoracic spine MRI examination. 4. Mild disc bulges at the C3-C5 through C6-C7 levels without significant spinal stenosis. 5. Suspected hemangioma at the T3 level. Bipin Estrella MD Thoracic Spine MRI 07/14/17 0000 Signed Impressions: Service Date/Time: Friday, July 14, 2017 17:15 - CONCLUSION: 1. See the MRI of the cervical spine and lumbar spine reported separately. 2. Scoliotic curvature. 3. No acute abnormality. Ruperto Pozo Jr., MD Needle Biopsy/Aspiration X-Ray 07/14/17 0000 Signed Impressions: Service Date/Time: Friday, July 14, 2017 15:40 - CONCLUSION: Uncomplicated FNA of the lumbosacral disc as above. Edvin Cabrera MD Objective Remarks GENERAL: This is a well-nourished, well-developed female patient, lying in bed with generalized pain. SKIN: The sacral/gluteal area there is some erythema and a tiny skin tear. CARDIOVASCULAR: Regular rate and rhythm without murmurs, gallops, or rubs. RESPIRATORY: Clear to auscultation. Breath sounds equal bilaterally. No wheezes , rales, or rhonchi. GASTROINTESTINAL: Abdomen soft, non-tender, nondistended. No guarding. MUSCULOSKELETAL: Extremities without clubbing, cyanosis, or edema. No joint tenderness, effusion, or edema noted. 5 out of 5 upper and lower extremity muscle strength. Procedures none A/P Problem List: (1) Rheumatoid arthritis ICD Code: M06.9 - Rheumatoid arthritis, unspecified (2) Chronic neck and back pain ICD Code: M54.2 - Cervicalgia; M54.9 - Dorsalgia, unspecified (3) Weakness ICD Code: R53.1 - Weakness Assessment and Plan Mrs. Shine is a 47-year-old female patient with a known medical history of rheumatoid arthritis who presented to the ED with complaints of worsening neck and back pain and increasing weakness. Neuro/Psych/MSK/RHEUM: L5-S1 diskitis with paravertebral inflammation and small epidural abscess. Suspected osteomyelitis in T1-T2 level. Rheumatoid arthritis Chronic narcotic use Muscle spasm. Add Flexeril Patient is currently on morphine sulfate 60 mg every 8 hours and hydromorphone 8 mg by mouth twice a day/home medications. Patient states she takes usually hydromorphone 3 times daily at home Hydromorphone 1 mg every 4 hours when necessary breakthrough pain Currently on gabapentin 100 mg 3 times a day Resume methotrexate 3 mg every Thursday rheumatoid arthritis. 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 Similar findings on 07/21 MRI spine Followed by neurosurgery/Dr. New. Attilaay to discharge from their standpoint ID: Persistent staph aureus bacteremia Started cefazolin 2 g IV every 8 hours 07/22/17 Present vancomycin 2 g IV every [address] Mohan/infectious disease following Pertinent cultures 07/22 - blood cultures 2 - pending 07/20 - blood cultures 2 - positive cocci 07/16 - blood cultures 2 - staph aureus 07/14 - blood cultures 2 - oxacillin sensitive staph aureus 07/13 - blood cultures 2 - oxacillin sensitive staph aureus Noted TT echocardiogram no signs of endocarditis 07/24 CV: Patient is currently normal saline at 84 cc an hour. No indication for vasopressors and/or antihypertensives at this time 2-D echocardiogram 07/16 revealed EF 60-65%. Trace TR. PAP 30 mmHg no signs of infective endocarditis Resp: Nasal cannula if indicated to maintain saturations greater than or equal to 90% Albuterol nebs every 2 hours. Dyspnea GI: Regular diet Pantoprazole for GI prophylaxis Docusate sodium/senna 1 tablet twice a day for bowel regimen : No indication for Art catheter Endo: Hypothyroidism Increase L-thyroxine to 137 g daily. TSH was 4.9. Free T4/T3 pending No indication for sliding scale insulin Renal: Creatinine currently within normal limits BMP in a.m.Monitor kidney indices Heme: Normocytic anemia Repeat CBC in AM. Monitor trending Hypopotassemia 30 Vicente KCl 1 now. Recheck in a.m. Access - Utilize peripheral IV. Central line if indicated Prophylaxis - GI - pantoprazole - DVT - C/heparin subcutaneous Discussed with the patient, nurse Plan to DC to SNF poss today if arrangements done. Needs authorization for IV antibiotic from [facility]. Case management is ff for DC plan. Discussed with Dr Mohan ID specialist. Patient had PICC line placed 07/26. Repeat blood cx NTD. Raina Griffin MD Jul 27, 2017 11:11
--- NOTE | 2017-07-27 11:51 | HHI.IDPN ---
Note Infectious Disease Note Patient feels better. Back and neck pain feels better. No new complaints. Afebrile. Tolerating Ancef. 07/20 - One of four blood culture had staph coag negative on last culture. Last positive blood culture for MSSA 07/16. PAST MEDICAL HISTORY 1. Rheumatoid arthritis. 2. Chronic low back pain. 3. COPD. 4. Anxiety disorder. 5. Thyroid disease. 6. Right inguinal hernia repair. ALLERGIES PENICILLIN. ANTIBIOTICS Ancef SOCIAL HISTORY No tobacco use. Positive alcohol, occasional. Denies illicit drugs. FAMILY HISTORY Noncontributory. OBJECTIVE: Vital Signs Date Time Temp Pulse Resp B/P (MAP) Pulse Ox O2 Delivery O2 Flow Rate FiO2 07/27/17 08:03 97.3 74 20 101/53 (69) 94 07/27/17 04:00 97.4 63 18 103/84 (90) 96 07/27/17 00:00 98.1 89 18 92/58 (69) 94 07/26/17 20:00 98.0 91 18 86/51 (63) 96 07/26/17 17:47 98.1 88 18 98/60 (73) 97 07/26/17 12:29 97.7 90 18 95/56 (69) 97 Laboratory Tests Test 07/26/17 08:02 Creatinine 0.46 MG/DL Estimat Glomerular Filtration Rate 145 ML/MIN IMAGING: Chest X-Ray 07/26/17 0000 Signed Impressions: Service Date/Time: Wednesday, July 26, 2017 13:25 - CONCLUSION: 1. PICC line in place with the tip at the cavoatrial junction. 2. No acute cardiopulmonary disease identified. Chad Mart MD Lumbar Spine MRI 07/21/17 0000 Signed Impressions: Service Date/Time: Friday, July 21, 2017 17:35 - CONCLUSION: 1. Suspected discitis at the L5-S1 level with abnormal signal at the L5 vertebral body and upper sacrum likely related to osteomyelitis. There is prominent enhancement in the soft tissues surrounding the L5-S1 level including the prevertebral soft tissues and the anterior epidural space. These changes were present previously. 2. Loss of disc space height and mild bulging at the L2-L3 level without significant stenosis. Bipin Estrella MD Cervical Spine MRI 07/21/17 0000 Signed Impressions: Service Date/Time: Friday, July 21, 2017 17:35 - CONCLUSION: 1. Suspected osteomyelitis and discitis at the T1-T2 level. 2. Prominent increased signal and enhancement around the C1-C2 articulation and dens. This appears less prominent than it did on the prior exam. This could be secondary to hypertrophic change/inflammatory change. Apparently the patient has a history of rheumatoid. Infection cannot absolutely be ruled out but again these changes appear less prominent on the current exam than on than they did on the prior exam. 3. Suspected inflammatory change/infection at the T1-T2 level which will be more fully described in the thoracic spine MRI examination. 4. Mild disc bulges at the C3-C5 through C6-C7 levels without significant spinal stenosis. 5. Suspected hemangioma at the T3 level. Bipin Estrella MD PHYSICAL EXAMINATION GENERAL: No acute distress. HEENT: No icterus. No thrush. Oropharynx no visible lesions. NECK: Mild stiffness. LUNGS: Clear. HEART: Regular S1 and S2, No murmurs. ABDOMEN: Bowel sounds present. Soft. No tenderness. EXTREMITIES: No clubbing, cyanosis or edema. SKIN: No rash. NEUROLOGIC: No gross focal findings. PSYCH: Calm and cooperative. IMPRESSION Discitis, paravertebral and small epidural abscess Lumbar spine L5-S1. Staph aureus. Neurosurgery following. Suspected osteomyelitis at T1-2 on radiographic study. Bacteremia staph aureus. Last blood culture with staph Epi - contamination. RECOMMENDATIONS 1. Continue IV Ancef Q 8 hours until Sep 14, 2017. See forms. 2. Follow up with ID outpatient and neurosurgery. 3. Okay to discharge when arrangement is made for IV antibiotics outpatient. Jay Mohan MD Jul 27, 2017 11:51
[2017-07-27] MEDS ORDERED: CEFA2SOL IV (11:55)
[2017-07-27 12:08] VITALS: BP 101/57; PULSE 99; RESP 20; TEMP 97.7; O2SAT 96
--- NOTE | 2017-07-27 12:12 | HHI.FF ---
Infusion Therapy Location of Infusion Therapy: [facility] IV Infusion Order Patient Information Patient Weight 45 kg Diagnosis: (1) Discitis of lumbosacral region Coded Allergies: penicillin G (Unverified Allergy, Severe, 07/13/17) unknown reaction Administer Medication Cefazolin 2 grams IV Q8HR continuous on pump. Stop Treatment: Sep 14, 2017 Additional Information Venous access: PICC Line Additional Instructions [x] Peripheral flush and dressing changes per protocol [x] Implanted port and central online content coordinator: * Implanted port: 10 ml Normal Saline followed by 5 ml Heparin 100 units/ml Heparin flush after each use and monthly to maintain. [] May leave port accessed during therapy. [] May leave peripheral site accessed for duration of therapy. [x] If patient has SOB or respiratory distress, check oxygen saturation. If less than 90% or clinical signs of respiratory distress, administer oxygen at 2 L/min. via nasal cannula and notify physician. [x] Anaphylaxis/Reaction orders: * Stop infusion. * Keep IV line open with saline flush. * Notify physician. * Monitor vital signs every 15 minutes until symptoms resolve. * Check Oxygen saturation; Oxygen at 2 L/min. via nasal cannula if less than 90% or clinical signs of respiratory distress. * Administer diphenhydramine (Benadryl) 25 mg IV STAT, (unless patient has received as pre-med). May repeat once, if necessary. * Solu-Cortef 250 mg IVP over 30-60 seconds, use 100 mg vials for each dissolution. * Epinephrine (1mg/1 ml) 0.3 mg subcutaneously or IVP now with any signs of respiratory distress. * Check with physician for new additional pre-med orders if patient is re- challenged or re-treated. [x] May remove PICC line when treatment complete, after confirming with Physician. [x] If the patient is admitted to the hospital, the ED, or transferred via [facility] , complete transfer form including medication reconciliation order sheet. Laboratory Tests Weekly Labs: BMP, CRP, SED Rate Additional Information Follow up with Infectious disease Dr. Herman in 1 week. Fax labs to Dr Herman [phone] Also fax Labs to Dr Mohan [phone]. Jay Mohan MD Jul 27, 2017 12:12
[2017-07-27] MEDS: SODIUM CHLOR 0.9% 1000 ML INJ 1,000 ML IV SCH (14:40)
[2017-07-27 16:13] VITALS: BP 110/57; PULSE 96; RESP 20; TEMP 97.6; O2SAT 95
[2017-07-27 20:15] VITALS: BP 106/58; PULSE 88; RESP 16; TEMP 97.9; O2SAT 95
[2017-07-28 00:21] VITALS: BP 102/64; PULSE 100; RESP 16; TEMP 98.3; O2SAT 95
[2017-07-28] MEDS: SODIUM CHLOR 0.9% 1000 ML INJ 1,000 ML IV SCH (02:35)
[2017-07-28] MEDS: MORPHINE SULFATE 60 MG CONTROLLED RELEASE TAB PO SCH ×2 (03:09→09:55)
[2017-07-28] MEDS: CHLORHEXIDINE GLUCONATE 2 % 1 PACK (2 CLOTHS)(taper/protocol) TOPICAL SCH (04:00)
[2017-07-28] MEDS: INSULIN NovoLIN REGULAR SUPPLEMENTAL SCALE SQ SCH ×2 (04:00→09:41)
[2017-07-28 04:39] VITALS: BP 117/57; PULSE 91; RESP 17; TEMP 98.6; O2SAT 94
[2017-07-28] MEDS: LEVOTHYROXINE SODIUM 25 MCG TAB PO SCH (06:03)
[2017-07-28] MEDS: LEVOTHYROXINE SODIUM 112 MCG TAB PO SCH (06:03)
[2017-07-28] MEDS: HYDROmorphone HCL PF 1 MG/ML VIAL IV PUSH PRN (06:12)
[2017-07-28 08:00] VITALS: BP 105/66; PULSE 70; RESP 16; TEMP 98; O2SAT 95
--- NOTE | 2017-07-28 08:19 | HHI.PR ---
Subjective Remarks Feels much better today. Says she doesn't have much pain. She is very happy as she will go home and not to [facility] facility. Antibiotics arrange for pump at home. No fever or chills. Objective Vitals Vital Signs Date Time Temp Pulse Resp B/P (MAP) Pulse Ox O2 Delivery O2 Flow Rate FiO2 07/28/17 08:00 98.0 70 16 105/66 (79) 95 07/28/17 04:39 98.6 91 17 117/57 (77) 94 07/28/17 00:21 98.3 100 16 102/64 (77) 95 07/27/17 20:15 97.9 88 16 106/58 (74) 95 07/27/17 16:13 97.6 96 20 110/57 (74) 95 07/27/17 12:08 97.7 99 20 101/57 (72) 96 I/O 07/27/17 07/27/17 07/27/17 07/28/17 07/28/17 07/28/17 07:00 15:00 23:00 07:00 15:00 23:00 Intake Total 300 ml 1300 ml 290 ml 240 ml Balance 300 ml 1300 ml 290 ml 240 ml Intake Oral 240 ml 240 ml IV Total 300 ml 1300 ml 50 ml # Voids 15 1 2 2 # Bowel Movements 2 Result Diagram: 07/25/17 0619 07/26/17 0802 Objective Remarks GENERAL: This is a well-nourished, well-developed female patient, lying in bed with generalized pain. SKIN: The sacral/gluteal area there is some erythema and a tiny skin tear. CARDIOVASCULAR: Regular rate and rhythm without murmurs, gallops, or rubs. RESPIRATORY: Clear to auscultation. Breath sounds equal bilaterally. No wheezes , rales, or rhonchi. GASTROINTESTINAL: Abdomen soft, non-tender, nondistended. No guarding. MUSCULOSKELETAL: Extremities without clubbing, cyanosis, or edema. No joint tenderness, effusion, or edema noted. 5 out of 5 upper and lower extremity muscle strength. Procedures none A/P Problem List: (1) Rheumatoid arthritis ICD Code: M06.9 - Rheumatoid arthritis, unspecified (2) Chronic neck and back pain ICD Code: M54.2 - Cervicalgia; M54.9 - Dorsalgia, unspecified (3) Weakness ICD Code: R53.1 - Weakness Assessment and Plan Mrs. Shine is a 47-year-old female patient with a known medical history of rheumatoid arthritis who presented to the ED with complaints of worsening neck and back pain and increasing weakness. Neuro/Psych/MSK/RHEUM: L5-S1 diskitis with paravertebral inflammation and small epidural abscess. Suspected osteomyelitis in T1-T2 level. Rheumatoid arthritis Chronic narcotic use Muscle spasm. Add Flexeril Patient is currently on morphine sulfate 60 mg every 8 hours and hydromorphone 8 mg by mouth twice a day/home medications. Patient states she takes usually hydromorphone 3 times daily at home Hydromorphone 1 mg every 4 hours when necessary breakthrough pain Currently on gabapentin 100 mg 3 times a day Resume methotrexate 3 mg every Thursday rheumatoid arthritis. 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 Similar findings on 07/21 MRI spine Followed by neurosurgery/Dr. New. Okay to discharge from their standpoint ID: Persistent staph aureus bacteremia Started cefazolin 2 g IV every 8 hours 07/22/17 Present vancomycin 2 g IV every [address] Mohan/infectious disease following Pertinent cultures 07/22 - blood cultures 2 - pending 07/20 - blood cultures 2 - positive cocci 07/16 - blood cultures 2 - staph aureus 07/14 - blood cultures 2 - oxacillin sensitive staph aureus 07/13 - blood cultures 2 - oxacillin sensitive staph aureus Noted TT echocardiogram no signs of endocarditis 07/24 CV: Patient is currently normal saline at 84 cc an hour. No indication for vasopressors and/or antihypertensives at this time 2-D echocardiogram 07/16 revealed EF 60-65%. Trace TR. PAP 30 mmHg no signs of infective endocarditis Resp: Nasal cannula if indicated to maintain saturations greater than or equal to 90% Albuterol nebs every 2 hours. Dyspnea GI: Regular diet Pantoprazole for GI prophylaxis Docusate sodium/senna 1 tablet twice a day for bowel regimen : No indication for Art catheter Endo: Hypothyroidism Increase L-thyroxine to 137 g daily. TSH was 4.9. Free T4/T3 pending No indication for sliding scale insulin Renal: Creatinine currently within normal limits BMP in a.m.Monitor kidney indices Heme: Normocytic anemia Repeat CBC in AM. Monitor trending Hypopotassemia 30 Vicente KCl 1 now. Recheck in a.m. Access - Utilize peripheral IV. Central line if indicated Prophylaxis - GI - pantoprazole - DVT - C/heparin subcutaneous Discussed with the patient, nurse Received authorization for IV antibiotic from [facility]. Case management is ff for DC plan. Discussed with Dr Mohan ID specialist. Patient had PICC line placed 07/26. Repeat blood cx NTD (5days). Patient will have pump and antibiotics will be administered at home. Arrangements done. Patient is discharge din stable conditin to follwo up as OP with PCP and consultants. Antibiotic at DC Cefazolin 2 grams IV q 8 hours Stop Treatment: Sep 14, 2017. Raina Griffin MD Jul 28, 2017 08:19
[2017-07-28] MEDS: ceFAZolin 2 GM PREMIX 50 ML IV SCH (09:50)
[2017-07-28] MEDS: SODIUM CHLORIDE 0.9% FLUSH 10 ML FLUSH IV FLUSH SCH (09:50)
[2017-07-28] MEDS: PANTOPRAZOLE SOD 40 MG DELAYED RELEASE TAB PO SCH (09:54)
[2017-07-28] MEDS: GABAPENTIN 100 MG CAP PO SCH (09:54)
[2017-07-28] MEDS: FOLIC ACID 1 MG TAB PO SCH (09:55)
[2017-07-28] MEDS: LACTOBACILLUS ACIDOPHILUS TAB PO SCH (09:55)
[2017-07-28] MEDS: DOCUSATE SODIUM 50 MG/SENNA 8.6 MG TAB PO SCH (09:56)
--- NOTE | 2017-07-28 10:25 | HHI.DS ---
Discharge Summary Admission Date Jul 13, 2017 at 16:58 Discharge Date: Jul 28, 2017 Admitting Diagnosis LUMBAR DISCITIS (1) Rheumatoid arthritis ICD Code: M06.9 - Rheumatoid arthritis, unspecified Diagnosis: Principal (2) Chronic neck and back pain ICD Code: M54.2 - Cervicalgia; M54.9 - Dorsalgia, unspecified Diagnosis: Secondary (3) Weakness ICD Code: R53.1 - Weakness Diagnosis: Secondary Procedures none Brief History - From Admission Written by Alem Reis, acting as scribe for Dr. Vaughan on 07/13/17 at 17:26. Mrs. Shine is a 47-year-old female patient with a known medical history of rheumatoid arthritis who presented to the ED with complaints of worsening neck and back pain and increasing weakness. Patient reports previous admission to hospital in May with similar symptoms. Since then patient has been taking methotrexate, steroids and pain medication with minimal relief. Patient states she has been unable to care for herself due to the worsening pain and increasing weakness, with having to perform all of her ADLs. She has developed a sacrum ulcer secondary to immobility for the past couple months. Subjective fevers have been reported. Denies any recent chills, cough, shortness of breath, abdominal pain, nausea, vomiting, diarrhea or dysuria. Cervical and lumbar spine images reviewed showing L5-S1 discitis with perivertebral and epidural abscess. Blood cultures drawn and pending. IV antibiotics started. Neurosurgery consulted, awaiting further recommendations and input. CBC/BMP: 07/25/17 0619 07/26/17 0802 Significant Findings Laboratory Tests Test 07/25/17 20:35 07/26/17 08:02 07/26/17 21:40 Vancomycin Level Trough 18.3 MCG/ML (5.0-10.0) 15.0 MCG/ML (5.0-10.0) Creatinine 0.46 MG/DL (0.50-1.00) Imaging Last Impressions Chest X-Ray 07/26/17 0000 Signed Impressions: Service Date/Time: Wednesday, July 26, 2017 13:25 - CONCLUSION: 1. PICC line in place with the tip at the cavoatrial junction. 2. No acute cardiopulmonary disease identified. Chad Mart MD Lumbar Spine MRI 07/21/17 0000 Signed Impressions: Service Date/Time: Friday, July 21, 2017 17:35 - CONCLUSION: 1. Suspected discitis at the L5-S1 level with abnormal signal at the L5 vertebral body and upper sacrum likely related to osteomyelitis. There is prominent enhancement in the soft tissues surrounding the L5-S1 level including the prevertebral soft tissues and the anterior epidural space. These changes were present previously. 2. Loss of disc space height and mild bulging at the L2-L3 level without significant stenosis. Bipin Estrella MD Cervical Spine MRI 07/21/17 0000 Signed Impressions: Service Date/Time: Friday, July 21, 2017 17:35 - CONCLUSION: 1. Suspected osteomyelitis and discitis at the T1-T2 level. 2. Prominent increased signal and enhancement around the C1-C2 articulation and dens. This appears less prominent than it did on the prior exam. This could be secondary to hypertrophic change/inflammatory change. Apparently the patient has a history of rheumatoid. Infection cannot absolutely be ruled out but again these changes appear less prominent on the current exam than on than they did on the prior exam. 3. Suspected inflammatory change/infection at the T1-T2 level which will be more fully described in the thoracic spine MRI examination. 4. Mild disc bulges at the C3-C5 through C6-C7 levels without significant spinal stenosis. 5. Suspected hemangioma at the T3 level. Bipin Estrella MD Thoracic Spine MRI 07/14/17 0000 Signed Impressions: Service Date/Time: Friday, July 14, 2017 17:15 - CONCLUSION: 1. See the MRI of the cervical spine and lumbar spine reported separately. 2. Scoliotic curvature. 3. No acute abnormality. Ruperto Pozo Jr., MD Needle Biopsy/Aspiration X-Ray 07/14/17 0000 Signed Impressions: Service Date/Time: Friday, July 14, 2017 15:40 - CONCLUSION: Uncomplicated FNA of the lumbosacral disc as above. Edvin Cabrera MD PE at Discharge GENERAL: This is a well-nourished, well-developed female patient, lying in bed with generalized pain. SKIN: The sacral/gluteal area there is some erythema and a tiny skin tear. CARDIOVASCULAR: Regular rate and rhythm without murmurs, gallops, or rubs. RESPIRATORY: Clear to auscultation. Breath sounds equal bilaterally. No wheezes , rales, or rhonchi. GASTROINTESTINAL: Abdomen soft, non-tender, nondistended. No guarding. MUSCULOSKELETAL: Extremities without clubbing, cyanosis, or edema. No joint tenderness, effusion, or edema noted. 5 out of 5 upper and lower extremity muscle strength. Hospital Course Mrs. Shine is a 47-year-old female patient with a known medical history of rheumatoid arthritis who presented to the ED with complaints of worsening neck and back pain and increasing weakness. Neuro/Psych/MSK/RHEUM: L5-S1 diskitis with paravertebral inflammation and small epidural abscess. Suspected osteomyelitis in T1-T2 level. Rheumatoid arthritis Chronic narcotic use Muscle spasm. Add Flexeril Patient is currently on morphine sulfate 60 mg every 8 hours and hydromorphone 8 mg by mouth twice a day/home medications. Patient states she takes usually hydromorphone 3 times daily at home Hydromorphone 1 mg every 4 hours when necessary breakthrough pain Currently on gabapentin 100 mg 3 times a day Resume methotrexate 3 mg every Thursday rheumatoid arthritis. 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 Similar findings on 07/21 MRI spine Followed by neurosurgery/Dr. New. Okay to discharge from their standpoint ID: Persistent staph aureus bacteremia Started cefazolin 2 g IV every 8 hours 07/22/17 Present vancomycin 2 g IV every [address] Mohan/infectious disease following Pertinent cultures 07/22 - blood cultures 2 - pending 07/20 - blood cultures 2 - positive cocci 07/16 - blood cultures 2 - staph aureus 07/14 - blood cultures 2 - oxacillin sensitive staph aureus 07/13 - blood cultures 2 - oxacillin sensitive staph aureus Noted TT echocardiogram no signs of endocarditis 07/24 CV: Patient is currently normal saline at 84 cc an hour. No indication for vasopressors and/or antihypertensives at this time 2-D echocardiogram 07/16 revealed EF 60-65%. Trace TR. PAP 30 mmHg no signs of infective endocarditis Resp: Nasal cannula if indicated to maintain saturations greater than or equal to 90% Albuterol nebs every 2 hours. Dyspnea GI: Regular diet Pantoprazole for GI prophylaxis Docusate sodium/senna 1 tablet twice a day for bowel regimen : No indication for Art catheter Endo: Hypothyroidism Increase L-thyroxine to 137 g daily. TSH was 4.9. Free T4/T3 pending No indication for sliding scale insulin Renal: Creatinine currently within normal limits BMP in a.m.Monitor kidney indices Heme: Normocytic anemia Repeat CBC in AM. Monitor trending Hypopotassemia 30 Vicente KCl 1 now. Recheck in a.m. Access - Utilize peripheral IV. Central line if indicated Prophylaxis - GI - pantoprazole - DVT - C/heparin subcutaneous Discussed with the patient, nurse Received authorization for IV antibiotic from [facility]. Case management is ff for DC plan. Discussed with Dr Mohan ID specialist. Patient had PICC line placed 07/26. Repeat blood cx NTD (5days). Patient will have pump and antibiotics will be administered at home. Arrangements done. Patient is discharge din stable conditin to follwo up as OP with PCP and consultants. Antibiotic at DC Cefazolin 2 grams IV q 8 hours Stop Treatment: Sep 14, 2017. Pt Condition on Discharge: Stable Discharge Disposition: Disch w/ Home Health Serv Discharge Time: > 30 minutes Discharge Instructions DIET: Follow Instructions for: As Tolerated, No Restrictions Activities you can perform: Regular-No Restrictions Follow up Referrals: Appointment for Follow Up - [address] Winnie Herman(ID) Appointment for Follow Up Appointment for Follow Up Neurosurgery - 1 Week with García New MD PCP Follow-up - 2-3 Days PCP Follow-up New Medications: Cefazolin Inj (Cefazolin Inj) 2 Gm/50 Ml Bagp 2 GM IV Q8H for Infection for 49 Days, BAG 0 Refills Gabapentin (Gabapentin) 100 Mg Cap 100 MG PO TID for neuropathy , #90 CAP Lactobacillus Acidophilus (Acidophilus/l-Sporogenes) 35 Million Cell-25 Million Cell Tab 1 TAB PO TID for probiotic, #30 TAB Sennosides-Docusate Sodium (Gnp Senna Plus 8.6-50 mg) 8.6 Mg-50 Mg Tab 1 TAB PO BID for Constipation, #60 TAB Continued Medications: Alendronate (Fosamax) 70 Mg Tab 70 MG PO Q7D for Osteoporosis Treatment, #4 TAB 0 Refills Certolizumab Pegol Inj (Cimzia (2 vial) Kit Inj) 400 Mg (200 Mg X 2) Kit 400 MG SQ Q14D, KIT Administer 2 syringes (400 mg) to separate sites. Folic Acid (Folic Acid) 1 Mg Tablet 1 MG PO DAILY Hydromorphone (Dilaudid) 8 Mg Tab 8 MG PO Q12HR PRN for Pain Management, #10 TAB 0 Refills (This prescription has been renewed) Levothyroxine (Synthroid) 125 Mcg Tab 125 MCG PO DAILY for Thyroid, #30 TAB 0 Refills Methotrexate (Methotrexate) 2.5 Mg Tab 3 TAB PO Q7D, TAB 0 Refills Morphine Sulfate CR (Morphine Sulfate CR) 60 Mg Tab 60 MG PO Q8HR for pain managment , #10 MG (This prescription has been renewed) Prednisone (Prednisone) 20 Mg Tab 50 MG PO BID, #10 TAB 0 Refills Take 40 mg (2 tablets) daily for 5 days Raina Griffin MD Jul 28, 2017 10:25
[2017-07-28] MEDS: HYDROmorphone HCL 4 MG TAB PO PRN (11:49)
[2017-07-28 12:00] VITALS: BP 98/65; PULSE 90; RESP 16; TEMP 98.2; O2SAT 94
[2017-07-28] MEDS ORDERED: PHARMACY ORDERED LAB ONE (20:45)
== END 2017-07-28 12:29 | disposition home health service (06) | DRG 477 ==
LOC: PHED 09:51 → PHEDA 16:58 → N05A 21:00 → HIMN 07-22 15:45 → N05B 07-24 18:51
PROVIDERS: ADMIT Hospitalist; ATTEND Hospitalist
PROC: 0Q903ZX Drainage of Lumbar Vertebra, Percutaneous Approach, Diagnostic (ICD-10-PCS; principal; 2017-07-14)
DX: M46.49 Discitis, unspecified, multiple sites in spine (principal); G06.2 Extradural and subdural abscess, unspecified; R78.81 Bacteremia; L89.152 Pressure ulcer of sacral region, stage 2; E87.1 Hypo-osmolality and hyponatremia; M46.24 Osteomyelitis of vertebra, thoracic region; J44.9 Chronic obstructive pulmonary disease, unspecified; G89.29 Other chronic pain; M06.9 Rheumatoid arthritis, unspecified; E03.9 Hypothyroidism, unspecified; F41.9 Anxiety disorder, unspecified; B95.61 Methicillin susceptible Staphylococcus aureus infection as the cause of diseases classified elsewhere; D64.9 Anemia, unspecified; M62.838 Other muscle spasm; E87.6 Hypokalemia; Z79.891 Long term (current) use of opiate analgesic; Z87.891 Personal history of nicotine dependence; Z88.0 Allergy status to penicillin; Z23 Encounter for immunization
CPT/HCPCS: 62267; 71010; 72156; 72157; 72158; 76937; 77002; 77003; 80048; 80053; 80202; 82550; 82565; 82948; 83605; 83735; 84100; 84439; 84443; 84481; 85007; 85025; 85027; 85610; 85652; 85730; 86140; 86403; 87040; 87070; 87077; 87147; 87185; 87186; 87205; 87641; 90686; 90732; 93306; 94150; 96374; 96375; 96376; 99152; 99153; A9579; J0690; J1170; J2250; J2405; J3010; J3370; J7030; J7050; J8610; Q2038